=== PATIENT | female | born 1970 | race African-American/Black ===

== ENCOUNTER 2021-08-22 05:02 | Inpatient (IN) | payer OTHER, SELFPAY ==
[2021-08-22] VITALS (10 sets, daily range): BP systolic 87–144; BP diastolic 54–72; PULSE 72–107; RESP 10–20; TEMP 36.6–36.9; O2SAT 90–99; BMI 27.4
--- NOTE | 2021-08-22 | ECG_ITS ---
Test Reason : QTC CHECK Blood Pressure : / mmHG Vent. Rate : 091 BPM Atrial Rate : 091 BPM P-R Int : 144 ms QRS Dur : 076 ms QT Int : 368 ms P-R-T Axes : 073 050 029 degrees QTc Int : 452 ms Normal sinus rhythm T wave abnormality, consider anterior ischemia Abnormal ECG When compared with ECG of 22-AUG-2021 05:12, Nonspecific T wave abnormality, worse in Inferior leads T wave inversion now evident in Anterior leads Referred By: Houston Markham Electronically Signed By:LYNDA FIGUEROA MD
--- NOTE | ~2021-08-22 | XR_ITS ---
EXAMINATION: XR CHEST CLINICAL INFORMATION: Shortness of breath COMPARISON: None TECHNIQUE: Frontal view of the chest was obtained. FINDINGS: The lungs are well expanded. There is no focal consolidation, edema, or effusion. Bronchial wall thickening noted. No pneumothorax. The cardiomediastinal silhouette is within normal limits. No acute osseous abnormality. XR/XR chest 1V IMPRESSION: No dense consolidation. Bronchial wall thickening can be seen with a small airways process such as asthma or atypical/viral infection.
--- NOTE | 2021-08-22 05:08 | ECG_ITS ---
Test Reason : SOB Blood Pressure : / mmHG Vent. Rate : 084 BPM Atrial Rate : 084 BPM P-R Int : 140 ms QRS Dur : 072 ms QT Int : 362 ms P-R-T Axes : 080 060 045 degrees QTc Int : 427 ms Normal sinus rhythm Right atrial enlargement Borderline ECG When compared with ECG of 09-MAR-2005 08:33, Nonspecific T wave abnormality now evident in Anterior leads Referred By: Elva Guerrero Electronically Signed By:LYNDA FIGUEROA MD
[2021-08-22] MEDS: Albuterol Sulfate (0.083%) 2.5 MG/3 ML VIAL.NEB 10 MG INHALE ×2 (05:14→06:08)
--- NOTE | 2021-08-22 05:16 | ED.SOB ---
HPI - SOB/Dyspnea General Chief Complaint: Dyspnea Stated Complaint: SoB, COPD Time Seen by Provider: 08/22/21 05:07 Source: patient Mode of arrival: ambulatory History of Present Illness HPI Narrative: 50-year-old female known COPD, every day smoker, who presents with difficulty breathing has progressively worsened over 2 days and reports severe right-sided lower back pain that she states feels similar to the pain she experienced 30 years ago in her right lung collapsed. Room-air sat 75% but responded well to application of nasal cannula. Patient denies any fever, chills, nausea, vomiting, chest pain/palpitations and denies any diarrhea or urinary symptoms. Related Data Allergies Allergy/AdvReac Type Severity Reaction Status Date / Time No Known Allergies Allergy Unverified 01/20/20 16:21 Review of Systems Review of Systems: Pertinent positives and negatives as stated in HPI 10 point review of systems is otherwise negative. PMFSH Past Medical History Source: nursing notes reviewed Social History Social History Alcohol intake: former Patient Tobacco Use Status: Current everyday Tobacco user Use of substances other than those prescribed or required for medical reasons: No Advance Directives: No Physical Exam Vital Signs: Vital Signs: Last Vital Signs Pulse 95 08/22/21 06:10 Resp 20 08/22/21 06:10 BP 144/72 H 08/22/21 05:39 Pulse Ox 99 08/22/21 05:39 BMI result Body Mass Index 27.4 VITAL SIGNS: Reviewed. GENERAL: Well developed, well nourished, in no acute distress. HEAD: Normocephalic/atraumatic EYES: PERRLA, EOMI EARS: Ext canals without abnormality OROPHARYNX: no oral lesions noted, posterior pharynx clear LUNGS: Minimal air movement noted bilaterally, tachypnea present, retractions present, able to speak in full sentences SpO2<99> on oxygen CARDIOVASCULAR: Regular rate and rhythm without noted murmurs, no JVD or lower extremity edema. ABDOMEN: Soft, non-tender, non-distended with bowel sounds. MUSCULOSKELETAL: No tenderness, deformities, or effusions noted on gross inspection. EXTREMITIES: No cyanosis, clubbing or edema. SKIN: Inspection of the skin reveals no rashes NEUROLOGIC: Alert and oriented x 4. Strength and sensation to light touch were grossly intact x 4. Course Course Course Narrative: 0500: 50-year-old female with history and clinical presentation consistent with COPD exacerbation, nebulized treatments/steroids/antibiotics as well as supplemental oxygen provided. All investigations reviewed and consistent with COPD exacerbation. MDM - SOB/Dyspnea Lab Data Result diagrams: 08/22/21 05:18 08/22/21 05:18 Labs: Lab Results 08/22/21 08/22/21 08/22/21 Range/Units 05:18 05:18 05:18 WBC 9.2 (4.8-10.8) X10*3/uL RBC 5.49 (4.20-5.50) X10*6/uL Hgb 16.5 H (12.0-16.0) g/dl Hct 50.8 H (37.0-47.0) % MCV 92.5 (80.0-98.0) fL MCH 30.1 (27.0-33.0) pg MCHC 32.5 (31.0-35.0) g/dl RDW 13.0 (11.0-16.0) % Plt Count 162 (160-400) X10*3/uL MPV 9.7 (9.4-12.3) fL Immature Gran % (Auto) 0.3 (0.0-0.4) % Neut % (Auto) 59.5 (45-73) % Lymph % (Auto) 29.0 (20-40) % [place] % (Auto) 8.3 (2-11) % Eos % (Auto) 2.7 (0-4) % Baso % (Auto) 0.2 (0-2) % Lymph # (Auto) 2.7 (1.2-4.9) X10*3/uL [place] # (Auto) 0.8 (0.1-1.2) X10*3/uL Eos # (Auto) 0.3 (0.0-0.4) X10*3/uL Baso # (Auto) 0.0 (0.0-0.2) X10*3/uL Abs Immat Gran (auto) 0.03 (0.00-0.03) X10*3/uL Absolute Neuts (auto) 5.4 (2.0-8.3) x10*3/uL Absolute Nucleated RBC 0.000 (0.0-0.012) X10*3/uL Nucleated RBC % (auto) 0.0 (0.0-0.2) /100WBC VBG pH (7.32-7.43) VBG pCO2 mmHg VBG pO2 mmHg VBG HCO3 (22-26) mmol/L VBG O2 Saturation % VBG Base Excess mmol/L Sodium 137 (135-145) mmol/L Potassium 4.8 (3.3-5.1) mmol/L Chloride 96 (96-108) mmol/L Carbon Dioxide 29 (22-29) mmol/L Anion Gap 17 (12-20) BUN 13 (9-16) mg/dL Creatinine 0.78 (0.5-1.4) mg/dL Estim Creat Clear Calc 67.3 Estimated GFR > 60 Random Glucose 92 (60-115) mg/dL Lactic Acid (0.5-2.0) mmol/L Calcium 9.5 (8.4-10.2) mg/dL Total Bilirubin 0.6 (0.0-1.0) mg/dL AST 25 (5-31) U/L ALT 15 (0-31) U/L Alkaline Phosphatase 66 (39-117) U/L Troponin I High Sens (<3.5-17.0) ng/L B-Natriuretic Peptide (<100) pg/mL Total Protein 8.3 H (6.5-8.0) g/dL Albumin 4.2 (3.5-5.0) g/dL COVID-19 (TESHA) (Negative) COVID-19 Clin Com Influenza Type A (TRANG) Negative (Negative) Influenza Type B (TRANG) Negative (Negative) Influenza A & B Note See Note 08/22/21 08/22/21 08/22/21 Range/Units 05:18 05:18 05:35 WBC (4.8-10.8) X10*3/uL RBC (4.20-5.50) X10*6/uL Hgb (12.0-16.0) g/dl Hct (37.0-47.0) % MCV (80.0-98.0) fL MCH (27.0-33.0) pg MCHC (31.0-35.0) g/dl RDW (11.0-16.0) % Plt Count (160-400) X10*3/uL MPV (9.4-12.3) fL Immature Gran % (Auto) (0.0-0.4) % Neut % (Auto) (45-73) % Lymph % (Auto) (20-40) % [place] % (Auto) (2-11) % Eos % (Auto) (0-4) % Baso % (Auto) (0-2) % Lymph # (Auto) (1.2-4.9) X10*3/uL [place] # (Auto) (0.1-1.2) X10*3/uL Eos # (Auto) (0.0-0.4) X10*3/uL Baso # (Auto) (0.0-0.2) X10*3/uL Abs Immat Gran (auto) (0.00-0.03) X10*3/uL Absolute Neuts (auto) (2.0-8.3) x10*3/uL Absolute Nucleated RBC (0.0-0.012) X10*3/uL Nucleated RBC % (auto) (0.0-0.2) /100WBC VBG pH (7.32-7.43) VBG pCO2 mmHg VBG pO2 mmHg VBG HCO3 (22-26) mmol/L VBG O2 Saturation % VBG Base Excess mmol/L Sodium (135-145) mmol/L Potassium (3.3-5.1) mmol/L Chloride (96-108) mmol/L Carbon Dioxide (22-29) mmol/L Anion Gap (12-20) BUN (9-16) mg/dL Creatinine (0.5-1.4) mg/dL Estim Creat Clear Calc Estimated GFR Random Glucose (60-115) mg/dL Lactic Acid 1.0 (0.5-2.0) mmol/L Calcium (8.4-10.2) mg/dL Total Bilirubin (0.0-1.0) mg/dL AST (5-31) U/L ALT (0-31) U/L Alkaline Phosphatase (39-117) U/L Troponin I High Sens < 3.5 (<3.5-17.0) ng/L B-Natriuretic Peptide 16 (<100) pg/mL Total Protein (6.5-8.0) g/dL Albumin (3.5-5.0) g/dL COVID-19 (TESHA) Negative (Negative) COVID-19 Clin Com See Note Influenza Type A (TRANG) (Negative) Influenza Type B (TRANG) (Negative) Influenza A & B Note 08/22/21 Range/Units 05:38 WBC (4.8-10.8) X10*3/uL RBC (4.20-5.50) X10*6/uL Hgb (12.0-16.0) g/dl Hct (37.0-47.0) % MCV (80.0-98.0) fL MCH (27.0-33.0) pg MCHC (31.0-35.0) g/dl RDW (11.0-16.0) % Plt Count (160-400) X10*3/uL MPV (9.4-12.3) fL Immature Gran % (Auto) (0.0-0.4) % Neut % (Auto) (45-73) % Lymph % (Auto) (20-40) % [place] % (Auto) (2-11) % Eos % (Auto) (0-4) % Baso % (Auto) (0-2) % Lymph # (Auto) (1.2-4.9) X10*3/uL [place] # (Auto) (0.1-1.2) X10*3/uL Eos # (Auto) (0.0-0.4) X10*3/uL Baso # (Auto) (0.0-0.2) X10*3/uL Abs Immat Gran (auto) (0.00-0.03) X10*3/uL Absolute Neuts (auto) (2.0-8.3) x10*3/uL Absolute Nucleated RBC (0.0-0.012) X10*3/uL Nucleated RBC % (auto) (0.0-0.2) /100WBC VBG pH 7.43 (7.32-7.43) VBG pCO2 51 mmHg VBG pO2 37 mmHg VBG HCO3 34 H (22-26) mmol/L VBG O2 Saturation 66.0 % VBG Base Excess 8.6 mmol/L Sodium (135-145) mmol/L Potassium (3.3-5.1) mmol/L Chloride (96-108) mmol/L Carbon Dioxide (22-29) mmol/L Anion Gap (12-20) BUN (9-16) mg/dL Creatinine (0.5-1.4) mg/dL Estim Creat Clear Calc Estimated GFR Random Glucose (60-115) mg/dL Lactic Acid (0.5-2.0) mmol/L Calcium (8.4-10.2) mg/dL Total Bilirubin (0.0-1.0) mg/dL AST (5-31) U/L ALT (0-31) U/L Alkaline Phosphatase (39-117) U/L Troponin I High Sens (<3.5-17.0) ng/L B-Natriuretic Peptide (<100) pg/mL Total Protein (6.5-8.0) g/dL Albumin (3.5-5.0) g/dL COVID-19 (TESHA) (Negative) COVID-19 Clin Com Influenza Type A (TRANG) (Negative) Influenza Type B (TRANG) (Negative) Influenza A & B Note ECG Data Attestation: I personally reviewed and interpreted this ECG as follows: Prior ECG tracings: available for review Interpretation: Normal sinus rhythm, HR-84, no STEMI, ND/QRS/QTC is within normal limits. Discharge Plan Discharge Clinical Impression: COPD exacerbation Patient Disposition: Admitted As Inpatient
[2021-08-22 05:22] LABS: Basophils Percent Auto 0.2 % (0-2); Eosinophils Absolute Auto 0.3 X10*3/uL (0.0-0.4); Eosinophils Percent Auto 2.7 % (0-4); Hematocrit 50.8 % (37.0-47.0); Hemoglobin 16.5 g/dl (12.0-16.0); Imm Gran Abs Auto 0.03 X10*3/uL (0.00-0.03); Imm Gran Pct Auto 0.3 % (0.0-0.4); Lymphocytes Absolute Auto 2.7 X10*3/uL (1.2-4.9); MANUAL DIFF FLAG NO; Mean Corpuscular HGB Conc 32.5 g/dl (31.0-35.0); Mean Corpuscular Hemoglobin 30.1 pg (27.0-33.0); Mean Corpuscular Volume 92.5 fL (80.0-98.0); Mean Platelet Volume 9.7 fL (9.4-12.3); Monocytes Absolute Auto 0.8 X10*3/uL (0.1-1.2); Monocytes Percent Auto 8.3 % (2-11); Neutrophils Absolute Auto 5.4 x10*3/uL (2.0-8.3); Neutrophils Percent Auto 59.5 % (45-73); Platelet Count 162 X10*3/uL (160-400); Red Blood Count 5.49 X10*6/uL (4.20-5.50); White Blood Count 9.2 X10*3/uL (4.8-10.8)
[2021-08-22] MEDS: methylPREDNISolone Sod Succ 125 MG/2 ML VIAL IVPUSH (05:33)
[2021-08-22 05:42] LABS: COVID-19 Test Negative (Negative); IDNOW Serial# 16C4AD1C
[2021-08-22 05:43] LABS: Influenza A Negative (Negative); Influenza B2 Negative (Negative)
[2021-08-22 05:44] LABS: VBG Base Excess 8.6 mmol/L; VBG HCO3 34 mmol/L (22-26); VBG pCO2 51 mmHg; VBG pH 7.43 (7.32-7.43); VBG pO2 37 mmHg
[2021-08-22 05:44] LABS: Alanine Aminotransferase 15 U/L (0-31); Albumin Level 4.2 g/dL (3.5-5.0); Alkaline Phosphatase 66 U/L (39-117); Anion Gap 17 (12-20); Aspartate Amino Transferase 25 U/L (5-31); Bilirubin Total 0.6 mg/dL (0.0-1.0); Blood Urea Nitrogen 13 mg/dL (9-16); Calcium 9.5 mg/dL (8.4-10.2); Carbon Dioxide 29 mmol/L (22-29); Chloride 96 mmol/L (96-108); Creatinine Clr Calc Pharmacy 67.3; Estimated Glomerular Filt Rate > 60; Glucose Random 92 mg/dL (60-115); Potassium 4.8 mmol/L (3.3-5.1); Sodium 137 mmol/L (135-145); Total Protein 8.3 g/dL (6.5-8.0)
[2021-08-22 05:45] LABS: Venous Blood Gas Refer to POC result
[2021-08-22 06:13] LABS: B Type Natriuretic Peptide 16 pg/mL (<100); Troponin-I High Sensitivity < 3.5 ng/L (<3.5-17.0)
[2021-08-22] MEDS: levoFLOXacin/D5W 750 MG/150 ML PIGGYBACK 100 MG IV (06:13)
--- NOTE | 2021-08-22 06:26 | PC.NURSE ---
I assumed nursing care of Yessica upon her arrival to bed 4. She presented with c/o difficulty rbeathing and R sided back pain that feels similar to the pain she felt when she had collapsed R lung approximately 30 years ago. On arrival pt admits to being a recovering IVDA. She was direct to bed 4 with RT and MD and RN's at bedside, room air sat's initially 74% - up to 90% with 6L O2 vi nasal cannula as well as DuoNeb. Initial lung sounds auscultated by Emmett ARBOLEDA revealed very little to no air movement. Sinus tach, rate 104 on bedside monitor. No cyanosis, although pt did appear pale on arrival. No nausea. No vomiting. No chest pain. She denies any change in her bowel or bladder patterns. IV access/labs obtained. IV Abx infusing. Pt is aware that she is TBADM.
[2021-08-22] MEDS: Albuterol/Iprat 2.5/0.5MG 3 ML AMPUL.NEB INHALE ×2 (06:28→11:08)
--- NOTE | 2021-08-22 08:04 | PHA.MEDREC ---
Pharmacy Consult ? Medication Reconciliation Pharmacy has completed the medication reconciliation. Patient stated she gets take home bottles of methadone from [place] and took one this morning (08/22) on the way to the ER.
--- NOTE | 2021-08-22 09:04 | PM.IMHP ---
History of Present Illness Date of Service: 08/22/21 Chief Complaint: shortness of breath, generalized malaise This is a 50 yo F with a PMH of COPD, Tobacco use -- actively smoking, prior IVDU now on methadone (sobriety > 6 years now), prior pneumococcal pneumonia / collapsed lung / tracheotomy who presents to the hospital with a several day history of a non-productive cough, progressive shortness of breath and severe fatigue. The patient reports that her symptoms began with generalized malaise with subsequently cough and pleuritic back pain. She began feeling short of breath with exertion and eventually even at rest. She reports she went into work on the night prior to admission and could not complete her shift due to severe fatigue and shortness of breath. She attempted, over the last several days, to use her PRN albuterol inhaler without any improvement. Upon arrival to the ED, she was found to be tachypenic in the high 20s/low 30s, tachycardic in the 120s and hypoxic down to 74% on RA which improved to 89-90% on 6L. She was given IV steroids, bronchodilators and IV antibiotics. Her symptoms improved but she remains hypoxic requiring 3L to keep O2 saturations >90. COVID vaccination status -- 3 doses of mRNA booster Review of Systems Review of Systems: negative except HPI [facility] Medical History (Updated 08/22/21 @ 09:12 by Houston Markham MD) COPD (chronic obstructive pulmonary disease) Lung collapse Pertinent family history: Denies any family history Surgical History (Updated 08/22/21 @ 09:12 by Houston Markham MD) H/O: History of tracheostomy Social History (Updated 08/22/21 @ 09:12 by Houston Markham MD) Alcohol intake: current Alcohol intake frequency: holidays/special occasions only Patient Tobacco Use Status: Current everyday Tobacco user Use of substances other than those prescribed or required for medical reasons: No Advance Directives: No Meds Allergies Allergy/AdvReac Type Severity Reaction Status Date / Time No Known Allergies Allergy Unverified 01/20/20 16:21 Active Medications: Current Medications Acetaminophen (Acetaminophen 325 Mg Tablet) 650 mg PO Q6H PRN PRN Reason: Pain, Mild (Pain Scale 1-3) Albuterol Sulfate (Albuterol Sulfate (0.083%) 2.5 Mg/3 Ml Vial.Neb) 2.5 mg INHALE Q3H PRN PRN Reason: Wheezing Albuterol/Ipratropium (Albuterol/Iprat 2.5/0.5mg 3 Ml Ampul.Neb) 3 ml INHALE RQ4H WHILE AWAKE [facility] Doxycycline Hyclate (Doxycycline Hyclate 100 Mg Tablet) 100 mg PO Q12H [facility] Enoxaparin Sodium (Enoxaparin Sodium 40 Mg/0.4 Ml Syringe) 40 mg SUBCUT Q24H [facility] Methadone HCl (Methadone Hcl 20 Mg/2 Ml Oral.Conc) 75 mg PO DAILY [facility] Methylprednisolone Sodium Succinate (Methylprednisolone Sod Succ 40 Mg/Ml Vial) 40 mg IVPUSH Q8H [facility] Ondansetron HCl (Ondansetron Hcl 4 Mg/2 Ml Vial) 4 mg IVPUSH Q8H PRN PRN Reason: Nausea and Vomiting Pharmacy Consult (Consult Rx Perform Med Rec) 1 each MISCELLANE ONCE PRN PRN Reason: Consult order Sodium Chloride (0.9 % Sodium Chloride Flush 3 Ml Syringe) 3 ml IVFLUSH QSHIFT [facility] Tiotropium [place] (Tiotropium [place] 18 Mcg Cap.W.Dev) puff INHALE DAILY [facility] Home Medications Medication Instructions Recorded Confirmed Last Taken Type albuterol sulfate 90 mcg/actuation 2 puff INHALATION QID PRN 08/22/21 08/22/21 Unknown History aerosol inhaler (Ventolin HFA) cholecalciferol (vitamin D3) 25 1 tab PO DAILY 08/22/21 08/22/21 08/21/21 History mcg (1,000 unit) tablet (Vitamin D3) methadone 10 mg/mL oral concentrate 75 mg PO DAILY 08/22/21 08/22/21 08/22/21 History multivitamin 1 tab PO DAILY 08/22/21 08/22/21 08/21/21 History tiotropium bromide 18 mcg capsule 1 cap INHALATION DAILY 08/22/21 08/22/21 08/21/21 History with inhalation device (Spiriva with HandiHaler) Physical Exam Vital Signs and Narrative: Vital Signs: Last Vital Signs Temp 98.0 F 08/22/21 08:25 Pulse 101 H 08/22/21 08:25 Resp 10 L 08/22/21 08:25 BP 87/63 L 08/22/21 08:25 Pulse Ox 91 L 08/22/21 08:25 BMI result Body Mass Index 27.4 Const: Other: Constitutional - Awake and Alert, appears fatigued Eyes - PERRLA, EOMI Cardiovascular - S1S2, rates in the 110s Respiratory - diminished air entry globally; saturation 90% on 3L NC Gastrointestinal - NT / ND; +BS; No rebound or guarding - No CVA tenderness Extremities - no calf tenderness bilaterally, no swelling Musculoskeletal - Normal inspection, normal ROM Skin - Warm/Dry Neurological - Alert & oriented x3, No focal deficit Psychological - Appropriate affect Results Labs CBC and Chem 7: 08/22/21 05:18 08/22/21 05:18 Labs: Laboratory Results - last 24 hr 08/22/21 08/22/21 08/22/21 05:18 05:18 05:18 MCV 92.5 MCH 30.1 MCHC 32.5 RDW 13.0 Plt Count 162 MPV 9.7 Immature Gran % (Auto) 0.3 Neut % (Auto) 59.5 Lymph % (Auto) 29.0 [place] % (Auto) 8.3 Eos % (Auto) 2.7 Baso % (Auto) 0.2 Lymph # (Auto) 2.7 [place] # (Auto) 0.8 Eos # (Auto) 0.3 Baso # (Auto) 0.0 Abs Immat Gran (auto) 0.03 Absolute Neuts (auto) 5.4 Absolute Nucleated RBC 0.000 Nucleated RBC % (auto) 0.0 VBG pH VBG pCO2 VBG pO2 VBG HCO3 VBG O2 Saturation VBG Base Excess Anion Gap 17 Estim Creat Clear Calc 67.3 Estimated GFR > 60 Random Glucose 92 Lactic Acid Calcium 9.5 Total Bilirubin 0.6 AST 25 ALT 15 Alkaline Phosphatase 66 Troponin I High Sens B-Natriuretic Peptide Total Protein 8.3 H Albumin 4.2 COVID-19 (TESHA) COVID-19 Clin Com Influenza Type A (TRANG) Negative Influenza Type B (TRANG) Negative Influenza A & B Note See Note 08/22/21 08/22/21 08/22/21 05:18 05:18 05:35 MCV MCH MCHC RDW Plt Count MPV Immature Gran % (Auto) Neut % (Auto) Lymph % (Auto) [place] % (Auto) Eos % (Auto) Baso % (Auto) Lymph # (Auto) [place] # (Auto) Eos # (Auto) Baso # (Auto) Abs Immat Gran (auto) Absolute Neuts (auto) Absolute Nucleated RBC Nucleated RBC % (auto) VBG pH VBG pCO2 VBG pO2 VBG HCO3 VBG O2 Saturation VBG Base Excess Anion Gap Estim Creat Clear Calc Estimated GFR Random Glucose Lactic Acid 1.0 Calcium Total Bilirubin AST ALT Alkaline Phosphatase Troponin I High Sens < 3.5 B-Natriuretic Peptide 16 Total Protein Albumin COVID-19 (TESHA) Negative COVID-19 Clin Com See Note Influenza Type A (TRANG) Influenza Type B (TRANG) Influenza A & B Note 08/22/21 05:38 MCV MCH MCHC RDW Plt Count MPV Immature Gran % (Auto) Neut % (Auto) Lymph % (Auto) [place] % (Auto) Eos % (Auto) Baso % (Auto) Lymph # (Auto) [place] # (Auto) Eos # (Auto) Baso # (Auto) Abs Immat Gran (auto) Absolute Neuts (auto) Absolute Nucleated RBC Nucleated RBC % (auto) VBG pH 7.43 VBG pCO2 51 VBG pO2 37 VBG HCO3 34 H VBG O2 Saturation 66.0 VBG Base Excess 8.6 Anion Gap Estim Creat Clear Calc Estimated GFR Random Glucose Lactic Acid Calcium Total Bilirubin AST ALT Alkaline Phosphatase Troponin I High Sens B-Natriuretic Peptide Total Protein Albumin COVID-19 (TESHA) COVID-19 Clin Com Influenza Type A (TRANG) Influenza Type B (TRANG) Influenza A & B Note Imaging Radiologist's Impressions: Impressions Chest X-Ray 08/22/21 05:50 IMPRESSION: No dense consolidation. Bronchial wall thickening can be seen with a small airways process such as asthma or atypical/viral infection. Assessment and Plan (1) Acute respiratory failure: Status: Acute (2) COPD exacerbation: Status: Acute Plan This is a 50 yo F with a PMH of COPD, Tobacco use -- actively smoking, prior IVDU now on methadone (sobriety > 6 years now), prior pneumococcal pneumonia / collapsed lung / tracheotomy who presents to the hospital with a several day history of a non-productive cough, progressive shortness of breath and severe fatigue. Her presentation is consistent with a COPD exacerbation likely secondary to continued smoking + bronchitis. 1. Acute Respiratory Failure with hypoxia presented with saturations in mid 70s, tachypnea and accessory muscle use currently 90% on 3L NC -- continue with a saturation goal of 90-92; do not over oxygenate Due to COPD exacerbation 2. Acute COPD exacerbation 2a. Suspected bacterial bronchitis Continue scheduled + PRN nebulized bronchodilators empiric doxycycline Patient does not have severe sepsis; her low BP reading (87/63) is an error has multiple readings shortly after this (and without intervention) are in the normal range 3. Chronic opiate dependence on methadone maintenance therapy -- reports she has taken her dose of the day prior IVDU -- now sober > 6 years continue methadone; avoid qt prolonging drugs; will check EKG now Full Code DVT pptx, Lovenox In light of the patient's acute respiratory failure requiring supplemental oxygen + COPD exacerbation -- I anticipate a medically necessary inpatient hospitalization which is likely to span at least 2 midnights for treatment and monitoring of response to the previously mentioned conditions. This cannot be completed in a less acute setting. Quality Stroke Does the patient have a stroke diagnosis?: No VTE Prior VTE?: No VTE Risk Level:: Medical - moderate - high VTE Device Contraindication: Treatment Not Indicated VTE Drug Contraindication: N/A - Med Ordered
[2021-08-22] MEDS: Lactated Ringers 1,000 ML 100 ML IVCONT ×2 (10:00→19:16)
[2021-08-22] MEDS: Enoxaparin Sodium 40 MG/0.4 ML SYRINGE SUBCUT (10:00)
[2021-08-22 10:02] LABS: D Dimer High Sensitivity < 150 NG/ML
[2021-08-22] MEDS: oxyCODONE HCl Immed Release 5 MG TABLET PO ×2 (12:23→18:46)
[2021-08-22] MEDS: methylPREDNISolone Sod Succ 40 MG/ML VIAL IVPUSH ×2 (12:23→19:14)
[2021-08-22 13:00] LABS: Troponin-I High Sensitivity < 3.5 ng/L (<3.5-17.0)
[2021-08-22] MEDS: ondansetron HCL 4 MG/2 ML VIAL IVPUSH (22:52)
[2021-08-23] VITALS (9 sets, daily range): BP systolic 114–133; BP diastolic 65–79; PULSE 69–90; RESP 17–20; TEMP 35.6–36.4; O2SAT 90–98
[2021-08-23] MEDS: methylPREDNISolone Sod Succ 40 MG/ML VIAL IVPUSH ×3 (03:37→19:42)
[2021-08-23] MEDS: Albuterol/Iprat 2.5/0.5MG 3 ML AMPUL.NEB INHALE ×3 (07:34→15:26)
[2021-08-23] MEDS: Enoxaparin Sodium 40 MG/0.4 ML SYRINGE SUBCUT (08:05)
[2021-08-23] MEDS: methADONE HCl 20 MG/2 ML ORAL.CONC 75 MG PO (08:06)
[2021-08-23] MEDS: oxyCODONE HCl Immed Release 5 MG TABLET PO ×2 (08:08→15:55)
[2021-08-23] MEDS: 0.9 % Sodium Chloride Flush 3 ML SYRINGE IVFLUSH ×3 (08:11→19:42)
--- NOTE | 2021-08-23 09:08 | P.PNIM_ITS ---
Subjective Subjective Date of Service: 08/23/21 Interval History: seen and examined this AM feeling better, no chest pain still sob with exertion requesting nicotine patch Review of Systems negative except interval history Physical Exam Vital Signs: Vital Signs: Last Vital Signs Temp 97.6 F 08/23/21 07:29 Pulse 69 08/23/21 07:34 Resp 18 08/23/21 07:34 BP 127/79 08/23/21 07:29 Pulse Ox 90 L 08/23/21 07:29 BMI result Body Mass Index 27.4 Const: Other: General - no acute distress, appears comfortable Cardiovascular - regular rate and rhythm, S1-S2 Lungs - diminished breath sounds globally Abdomen - soft, nontender, no rebound or guarding Extremities - no edema bilaterally Neuro - awake and alert, no focal deficits Objective Data Active Medications Acetaminophen (Acetaminophen 325 Mg Tablet) 650 mg PO Q6H PRN PRN Reason: Pain, Mild (Pain Scale 1-3) Albuterol Sulfate (Albuterol Sulfate (0.083%) 2.5 Mg/3 Ml Vial.Neb) 2.5 mg INHALE Q3H PRN PRN Reason: Wheezing Albuterol/Ipratropium (Albuterol/Iprat 2.5/0.5mg 3 Ml Ampul.Neb) 3 ml INHALE RQ4H WHILE AWAKE [facility] Last Admin: 08/23/21 07:34 Dose: 3 ml Documented by: MALCOM Doxycycline Hyclate (Doxycycline Hyclate 100 Mg Tablet) 100 mg PO Q12H [facility] Last Admin: 08/23/21 08:05 Dose: 100 mg Documented by: MARCIE Enoxaparin Sodium (Enoxaparin Sodium 40 Mg/0.4 Ml Syringe) 40 mg SUBCUT Q24H [facility] Last Admin: 08/23/21 08:05 Dose: 40 mg Documented by: MARCIE Methadone HCl (Methadone Hcl 20 Mg/2 Ml Oral.Conc) 75 mg PO DAILY [facility] Last Admin: 08/23/21 08:06 Dose: 75 mg Documented by: MARCIE Methylprednisolone Sodium Succinate (Methylprednisolone Sod Succ 40 Mg/Ml Vial) 40 mg IVPUSH Q8H [facility] Last Admin: 08/23/21 03:37 Dose: 40 mg Documented by: CHERYL Nicotine (Nicotine 14 Mg Patch.Td24) 14 mg TRANSDERMA DAILY [facility] Ondansetron HCl (Ondansetron Hcl 4 Mg/2 Ml Vial) 4 mg IVPUSH Q8H PRN PRN Reason: Nausea and Vomiting Last Admin: 08/22/21 22:52 Dose: 4 mg Documented by: ODRISM Oxycodone HCl (Oxycodone Hcl Immed Release 5 Mg Tablet) 5 mg PO Q6H PRN PRN Reason: Pain, Severe (Pain Scale 7-10) Last Admin: 08/23/21 08:08 Dose: 5 mg Documented by: MARCIE Pharmacy Consult (Consult Rx Perform Med Rec) 1 each MISCELLANE ONCE PRN PRN Reason: Consult order Sodium Chloride (0.9 % Sodium Chloride Flush 3 Ml Syringe) 3 ml IVFLUSH QSHIFT [facility] Last Admin: 08/23/21 08:11 Dose: 3 ml Documented by: MARCIE Tiotropium [place] (Tiotropium [place] 18 Mcg Cap.W.Dev) 1 puff INHALE RDAILY [facility] Last Admin: 08/23/21 07:34 Dose: 1 puff Documented by: MALCOM Labs CBC & Chem 7: 08/22/21 05:18 08/22/21 05:18 Labs: Laboratory Results - last 24 hr 08/22/21 08/22/21 09:39 12:19 D-Dimer High Sensitivty < 150 Troponin I High Sens < 3.5 Microbiology Microbiology Results: Microbiology 08/22/21 05:40 Blood Culture - Preliminary Blood - Venous No growth after 24 hours. 08/22/21 05:40 Blood Culture - Preliminary Blood - Venous No growth after 24 hours. Assessment and Plan (1) Acute respiratory failure: Status: Acute (2) COPD exacerbation: Status: Acute Plan This is a 50 yo F with a PMH of COPD, Tobacco use -- actively smoking, prior IVDU now on methadone (sobriety > 6 years now), prior pneumococcal pneumonia / collapsed lung / tracheotomy who presents to the hospital with a several day history of a non-productive cough, progressive shortness of breath and severe fa tigue.? Her presentation is consistent with a COPD exacerbation likely secondary to continued smoking + bronchitis. 1. Acute Respiratory Failure with hypoxia still requiring 1.5L to maintain saturation > 90% continue to wean o2 as tolerated 2. Acute COPD exacerbation 2a. Suspected bacterial bronchitis Continue DuoNebs scheduled + IV solu-medrol continue Doxy 3. Chronic opiate dependence continue methadone 4. T-wave inversions no prior EKGs to compare HS trop-I negative x 2 Echo today and if abnormal -- inpatient cardiology consult; otherwise outpatient referral Full Code DVT pptx, Lovenox Reason for continued hospitalization: Persistent hypoxia secondary to COPD exacerbation + work up for EKG changes Quality Stroke Does the patient have a stroke diagnosis?: No VTE Prior VTE?: No VTE Risk Level:: Medical - moderate - high VTE Device Contraindication: Treatment Not Indicated VTE Drug Contraindication: N/A - Med Ordered
[2021-08-23] MEDS: Nicotine 14 MG PATCH.TD24 TRANSDERMA (09:56)
--- NOTE | 2021-08-23 10:04 | MHC.CM.PN ---
CM ATTEMPTED TO SEE PT HOWEVER BEDSIDE ECHO WAS IN PROCESS CM TO REVISIT
--- NOTE | 2021-08-23 13:00 | CA_ITS ---
Transthoracic Echocardiogram Patient (Last, First, Middle): Yessica Natarajan, Gender: Female Date of : 1970 Age: 50 Procedure Date: 08/23/2021 Procedure Type: Transthoracic Echocardiogram Location: S3E Height: 149.86 cm Weight: 61.69 kg BSA: 1.57 m2 Heart Rate: bpm BP: 110 / 62 mmHg Upholstery Covers Inspector: ROBERT Referring MD: Houston Markham MD Streetcar Dispatcher: Mars Lieberman MD Symptoms: EKG with t-wave inversion, chest pain Study Quality: Fair ECG Rhythm: Sinus Conclusions: - Essentially normal study Findings Left Ventricle Normal left ventricular size, thickness, and systolic function. The visually estimated ejection fraction is between 65-70%. Spectral Doppler is indicative of a normal filling pattern. Right Ventricle Normal right ventricular cavity size and systolic function. Atria Both atria are normal in size. There is lipomatous hypertrophy of the interatrial septum. There is no evidence of interatrial shunt. Aortic Valve Normal aortic valve structure and function. There is no aortic valve stenosis. There is no aortic valve regurgitation. Mitral Valve Likely normal mitral valve structure and function. There is trace mitral valve regurgitation. There is no mitral valve stenosis. Pulmonic Valve The pulmonic valve was not well visualized. Tricuspid Valve Normal tricuspid valve structure. There is trace tricuspid valve regurgitation. The right ventricular systolic pressure is normal. The right ventricular systolic pressure is 7 mmHg. Normal right atrial pressure. There is no evidence of pulmonary hypertension. Great Vessels All visible segments of the aorta are normal in size. The pulmonary artery was not well visualized. Venous The inferior vena cava is normal in size and collapses greater than 50% with inspiration. Pericardium/Pleural There is no evidence of pericardial effusion. Prior Study Comparison No prior study available for comparison. Measurements 2D Linear Measurements IVSd: 1.00 0.6-0.9/0.6-1.0 cm LVIDd: 3.34 3.9-5.3/4.2-5.9 cm LVIDd Index: 2.13 2.4-3.2/2.2-3.1 cm/m2 LVIDs: 2.09 2.0-3.6 cm LVPWd: 0.95 0.7-1.1 cm LA Diam: 2.40 2.7-3.8/3.0-4.0 cm LAIDs Index: 1.53 1.5-2.3 cm/m2 LV Mass: 115.56 67-162/88-224 g LV Mass Index: 73.60 43-95/49-115 g/m2 LVOT Diam: 1.90 3.0+(-)1.3 cm 2D Systolic Function EF 4C: 71.20 >55% EF 2C: 68.00 >55% EF BiP: 69.80 >55% Mitral Valve MV Pk E: 0.90 MV PK A: 0.78 MV Decel Time: 216.00 E/A: 1.20 E'Lateral: 12.20 E'Medial: 8.16 E/E' Med: 11.00 E/E' Lat: 7.40 PHT: 63.00 MVA PHT: 3.49 Decel [place]: 4.16 Aortic Valve AoV Pk Emigdio: 1.49 AoV Mn Emigdio: 1.01 AoV VTI: 0.30 AoV Pk Grad: 9.00 Aov Mn Grad: 5.00 WESLY Cont.VTI: 2.32 LVOT LVOT Pk Emigdio: 1.21 LVOT Mn Emigdio: 0.81 LVOT VTI: 0.25 LVOT Pk Grad: 6.00 LVOT Mn Grad: 3.00 LVOT Diam: 1.90 LVOT Area: 2.84 Diastolic Function MV Pk E: 0.90 MV Pk A: 0.78 E/A: 1.20 E'Medial: 8.16 E/E' Med: 11.00 E' Laterial: 12.20 E/E' Lat: 7.40 Right Ventricle TAPSE (mm): 20.80 TVS' Emigdio: 13.50 Tricuspid Valve TR Pk Emigdio: 1.03 TR Pk Grad: 4.00 RA Press: 3.00 RVSP: 7.00 Great Vessels Aorta Sinus of Valsalva: 2.90 2.0-3.[address] [place]: 2.62 1.7-3.4 cm Ao Asc: 2.80 2.1-3.4 cm Ao Arch: 3.10 Updated in Other Vendor System with Status of Final Mars Lieberman MD electronically signed on 08/23/2021 4:09:49 PM with status of Final
--- NOTE | 2021-08-23 14:03 | MHC.CM.PN ---
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
[2021-08-23] MEDS: ondansetron HCL 4 MG/2 ML VIAL IVPUSH (15:55)
[2021-08-24] VITALS (7 sets, daily range): BP systolic 129–143; BP diastolic 65–82; PULSE 66–85; RESP 17–18; TEMP 36.1–36.3; O2SAT 94–98
[2021-08-24] MEDS: methylPREDNISolone Sod Succ 40 MG/ML VIAL IVPUSH ×2 (02:58→12:27)
[2021-08-24] MEDS: oxyCODONE HCl Immed Release 5 MG TABLET PO (03:48)
[2021-08-24] MEDS: Albuterol Sulfate (0.083%) 2.5 MG/3 ML VIAL.NEB INHALE (04:10)
[2021-08-24] MEDS: Albuterol/Iprat 2.5/0.5MG 3 ML AMPUL.NEB INHALE ×2 (07:48→11:42)
[2021-08-24] MEDS: methADONE HCl 20 MG/2 ML ORAL.CONC 75 MG PO (08:07)
[2021-08-24] MEDS: Enoxaparin Sodium 40 MG/0.4 ML SYRINGE SUBCUT (08:08)
[2021-08-24] MEDS: 0.9 % Sodium Chloride Flush 3 ML SYRINGE IVFLUSH (08:08)
[2021-08-24] MEDS: Nicotine 14 MG PATCH.TD24 TRANSDERMA (08:11)
--- NOTE | 2021-08-24 09:53 | P.DS_ITS ---
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 The patient reports that her symptoms began with generalized malaise with subsequently cough and pleuritic back pain. She began feeling short of breath with exertion and eventually even at rest. She reports she went into work on the night prior to admission and could not complete her shift due to severe fatigue and shortness of breath. She attempted, over the last several days, to use her PRN albuterol inhaler without any improvement. Upon arrival to the ED, she was found to be tachypenic in the high 20s/low 30s, tachycardic in the 120s and hypoxic down to 74% on RA which improved to 89-90% o n 6L. She was given IV steroids, bronchodilators and IV antibiotics. Her symptoms improved but she remains hypoxic requiring 3L to keep O2 saturations >90. COVID vaccination status -- 3 doses of mRNA booster discharge diagnosis: acute respiratory failure with hypoxia acute COPD exacerbation possible bacterial bronchitis tobacco dependence T wave inversions on EKG Hospital course by problem: acute respiratory failure with hypoxia secondary to acute COPD exacerbation and suspected bacterial bronchitis. Patient was started on scheduled and as needed bronchodilator therapy. She initially required supplemental oxygen to maintain oxygen saturation greater than 90%. She was started on systemic steroids and antibiotic coverage. She was gradually able to be weaned off of oxygen and is currently on room air. She has remained afebrile. Her wheezing and breathing have improved and she is now eager to return home. She will be discharged home to complete course of antibiotics and steroids. She is encouraged to stop smoking and will be provided with nicotine patch on discharge. She was noted to have T-wave inversions on her EKG. Highly sensitive troponin was checked and negative x2. She did not describe any chest pain. Echocardiogram showed no evidence of wall motion abnormality. She will be referred to Cardiology to be seen as an outpatient to determine need for any further workup. Time Spent with Patient Time attestation: Total time spent providing and/or coordinating discharge services: Discharge coordination time: Greater than 30 minutes Quality: Safe Use of Opioids Does Pt have an Active Cancer Diagnosis on the Problem List?: No Quality: Stroke Does the patient have a stroke diagnosis?: No Physical Exam Vital Signs: Vital Signs: Last Vital Signs Temp 97.4 F 08/24/21 07:46 Pulse 72 08/24/21 07:52 Resp 18 08/24/21 07:52 BP 138/82 08/24/21 07:46 Pulse Ox 94 08/24/21 07:46 BMI result Body Mass Index 27.4 Const: General: cooperative, comfortable, alert and awake Nutritional Appearance: average body habitus Orientation/consciousness: patient oriented x3 Resp: Effort & Inspection: normal respiratory effort and able to speak in complete sentences GI: Palpation (GI): Soft to palpation and nontender Neuro: General: patient oriented x3 Extrem: General: Yes no pedal edema DS: Data Data Completed and Pending Labs on day of discharge: Preliminary micro results at discharge 08/22/21 05:40 Blood Culture - Preliminary Blood - Venous No growth after 48 hours. 08/22/21 05:40 Blood Culture - Preliminary Blood - Venous No growth after 48 hours. Discharge Plan Discharge Patient Disposition: Home, Self-Care Discharge Diagnosis: Acute respiratory failure with hypoxia Acute COPD exacerbation Abnormal EKG Tobacco Dependence Referrals: Mars Lieberman MD [Physician] - 1 Week Physician,Marguerite J [Primary Care Provider] - 1 Week Discharge Medications: New doxycycline hyclate 100 mg Tablet 100 mg PO Q12H 3 Days Qty: 6 0RF albuterol sulfate [Ventolin HFA] 90 mcg/actuation HFA aerosol inhaler 2 puff inhalation Q4-6H PRN (Reason: shortness of breath or wheezing) Qty: 6.7 0RF prednisone 20 mg tablet 40 mg PO DAILY 4 Days Qty: 8 0RF nicotine [Nicoderm CQ] 14 mg/24 hr patch 24 hour 1 patch transdermal DAILY Qty: 28 0RF Continued multivitamin Tablet 1 tab PO DAILY 0RF methadone 10 mg/mL Concentrate 75 mg PO DAILY 0RF albuterol sulfate [Ventolin HFA] 90 mcg/actuation HFA aerosol inhaler 2 puff inhalation QID PRN (Reason: dyspnea) 0RF Spiriva with HandiHaler 18 mcg capsule, w/inhalation device 1 cap inhalation DAILY 0RF cholecalciferol (vitamin D3) [Vitamin D3] 25 mcg (1,000 unit) tablet 1 tab PO DAILY 0RF naproxen 500 mg tablet 1 tab PO BID 0RF Discharge Orders: Discharge Order (Routine); Ordered 08/24/21 Ordered By: Sara Maharaj Activity on Discharge: As tolerated Stand Alone Forms: Patient Portal Discharge page Care Plan Goals: see below Health Concerns: COPD exacerbation EKG changes Plan of Treatment: Take steroids and antibiotics as prescribed until completed Recommend to stop smoking, can use nicotine patch Use albuterol as needed for shortness of breath or wheezing Call to schedule post -hospitalization follow-up appointment with PCP Call to schedule an appointment in the Cardiology Clinic due to EKG changes Return to the ED if you develop chest pain or shortness of breath Assessment: See discharge summary Discharge Date/Time: 08/24/21 13:41
--- NOTE | 2021-08-24 12:03 | MHC.CM.PN ---
NURSE LOPEZ HERNÁNDEZ ELECTRONIC MEDICAL RECORD REVIEWED ALONG WITH CASE DISCUSSED WITH STAFF NURSE AND HOSPITLAIST , MET WITH PATIENT , SHE IS AWARE THAT SHE WILL BE DISCHARGED TODAY AND EXPRESSED FEELING MUCH BETTER AND WANTING TO BE DISCHARGED DISCHARGED PLAN HOME NO SERVICES TRANSPORTATION PATIENT HAS CAR IN THE PARKING LOT PCP FOLLOW UP OPOST DISCHARGE INSTRUCTED TO PATIENT
== END 2021-08-24 13:41 | disposition home or self-care (01) | DRG 140 ==
LOC: HO.ED 06:02 → HO.EDOVER 09:14 → HO.S3 11:05
PROVIDERS: Admitting Provider Family Medicine; Emergency Provider Student in an Organized Health Care Education/Training Program; PCP Internal Medicine; Visit Provider Physician Assistant Medical
DX: J44.0 Chronic obstructive pulmonary disease with (acute) lower respiratory infection (principal); J96.01 Acute respiratory failure with hypoxia; J20.9 Acute bronchitis, unspecified; Z20.822 Contact with and (suspected) exposure to COVID-19; J44.1 Chronic obstructive pulmonary disease with (acute) exacerbation; F11.20 Opioid dependence, uncomplicated; Z87.01 Personal history of pneumonia (recurrent); F17.210 Nicotine dependence, cigarettes, uncomplicated; Z71.6 Tobacco abuse counseling; Z79.52 Long term (current) use of systemic steroids; Z79.899 Other long term (current) drug therapy
CPT/HCPCS: 36415; 71045; 80053; 82803; 83605; 83880; 84484; 85025; 85379; 87040; 87502; 87635; 93005; 93306; 94640; 94644; 96365; 96375; 99285; J1650; J1956; J2405; J2920; J2930

== ENCOUNTER → 2021-09-17 08:57 | Outpatient (BNVA) | payer OTHER, SELFPAY | PROVIDERS: PCP Internal Medicine; Referring Provider Internal Medicine; Visit Provider Internal Medicine Cardiovascular Disease | DX: R94.31 Abnormal electrocardiogram [ECG] [EKG] (principal) | CPT/HCPCS: 99202 ==

== ENCOUNTER 2021-09-20 11:02 | Outpatient (REF) | payer OTHER, SELFPAY ==
--- NOTE | ~2021-09-20 | MM_ITS ---
EXAMINATION: MM SCREENING DIGITAL BREAST TOMOSYNTHESIS, BILATERAL CLINICAL INFORMATION: Screening. Asymptomatic. Patient notes bilateral breast injections over 15 years ago. The lifetime risk of breast cancer based on the Tyrer-Cuzick Model is 10%. COMPARISON: Mammography: 07/23/2011 (baseline) TECHNIQUE: Digital breast tomosynthesis is performed in both the craniocaudal and mediolateral oblique views along with computer-aided detection (CAD). Synthesized 2D images are generated from the tomosynthesis. FINDINGS: The breasts are heterogeneously dense, which may obscure small masses (ACR BI-RADS breast composition Category c). Breast tissue composition borders on extremely dense. Again, there are numerous scattered bilateral round and predominantly rim lucent centered calcifications in both breasts along with numerous punctate round calcifications. Distribution is similar to the baseline exam 2012. There are no interval suspicious calcifications. No significant mass or architectural abnormality. There is a 1.8 cm left axillary node approximately 12 cm from nipple without clearly defined fatty hilus. This node was not imaged on prior study and chronicity is uncertain. Patient will be recalled to further characterize. Right axilla unremarkable. MM/MM tomosynthesis screening BI IMPRESSION: -Innumerable bilateral rim and punctate round calcifications similar to prior baseline exam 2012. -Breast parenchymal pattern similar to baseline exam. -Left axillary node without appreciable fatty hilus, not previously imaged. ASSESSMENT: BI-RADS 0: Incomplete - Need Additional Imaging Evaluation RECOMMENDATION: 1. Targeted ultrasound left axilla. 2. Radiology department staff will contact the patient for additional imaging. This patient's information was entered into a reminder system with a target due date for their next mammogram.
== END 2021-09-20 11:03 | disposition home or self-care (01) ==
LOC: HO.MAMMO 11:02
PROVIDERS: PCP Internal Medicine; Visit Provider Internal Medicine
DX: Z12.31 Encounter for screening mammogram for malignant neoplasm of breast (principal)
CPT/HCPCS: 77063; 77067

== ENCOUNTER 2021-09-28 13:51 | Outpatient (REF) | payer OTHER, SELFPAY ==
--- NOTE | ~2021-09-28 | US_ITS ---
EXAMINATION: US DIAGNOSTIC BREAST, LEFT CLINICAL INFORMATION: Call back for abnormal lymph node on mammography. COMPARISON: 07/23/2011 and 09/20/2021. TECHNIQUE: Ultrasound of the breast is performed with real-time weston scale imaging and color Doppler. FINDINGS: On questioning of the patient, she does have tattoos and also a history of having multiple injections performed within the left breast. She was not sure what the injections were; however, these were likely silicone due to appearance of axillary lymph nodes. Within the axilla, there are multiple foci of heterogeneously hyperechoic structures with distal sound shadowing with the appearance of a snowstorm with the appearance of lymph nodes infiltrated with silicone. Recommend 6-month followup left breast mammogram to ensure stability. Results are discussed with the patient at time of visit. US/US breast LT limited IMPRESSION: Abnormal left axillary lymph nodes have the appearance of lymph nodes infiltrated with silicone. ASSESSMENT: BI-RADS 3: Probably Benign RECOMMENDATION: Diagnostic mammography in 6 months. This patient's information was entered into a reminder system with a target due date for their next mammogram.
== END 2021-09-28 13:52 | disposition home or self-care (01) ==
LOC: HO.MAMMO 13:51
PROVIDERS: PCP Internal Medicine; Visit Provider Internal Medicine
DX: N64.89 Other specified disorders of breast (principal)
CPT/HCPCS: 76642

== ENCOUNTER → 2021-10-08 09:35 | Outpatient (REF) | payer OTHER, SELFPAY ==
--- NOTE | ~2021-10-08 | NM_ITS ---
EXERCISE MYOCARDIAL PERFUSION STUDY INDICATION: Abnormal EKG, assess for coronary disease and ischemia TECHNIQUE: The patient was brought in for an exercise perfusion study on 10/08/2021. Patient performed exercise as per Maynor protocol and was injected 25 mCi of sestamibi once target heart rate was achieved. Images were obtained using the SPECT gamma camera interlaced with the gating device. Images were obtained in supine position. Resting perfusion study was performed on 10/12/2021. Patient was administered 25 mCi of sestamibi intravenously at rest. Images were then obtained in supine position. Total DLP 78mGy-cm. Images were processed with the software and compared side to side in short axis, horizontal long axis and vertical long axis views. FINDINGS: Raw images were reviewed. The stress perfusion study showed no significant perfusion abnormality. Both uncorrected as well as CT attenuation corrected images were reviewed. The gated study shows normal LV systolic function with calculated LVEF of 67%. LV cavity is normal in size. The gated study shows normal wall thickening and contraction of segments. Resting study shows no significant perfusion abnormality. Gating at rest reveals normal wall motion with ejection fraction at 71%. The findings are consistent with no reversible or fixed perfusion defects. NM/NM cardiolite stress test IMPRESSION: 1. Myocardial perfusion imaging study shows normal myocardial perfusion. 2. Gated LVEF is 67% during stress and 71% during rest. 3. Transient ischemic dilatation not present. EKG component of the test reported separately.
--- NOTE | 2021-10-08 09:40 | CA_ITS ---
Acquisition Time: 2021-10-08 09:58:08 Total Exercise Time: 00:06:36 Test Indications: ABN EKG Medications: SEE CHART Protocol: JOSE LUIS Max HR: 151 BPM 90% of Pred: 167 BPM Max BP: 142/084 mmHG Max Work Load: 7.0 METS Exercise stress test with exercise 6 min 36 sec of Jose Luis protocol ( stage 2 held), without anginal symptoms, with isolated PVC, with normotensive response to exercise, without EKG changes meeting criteria for ischemia. Nuclear images pending. Test reviewed with Dr Quezada. Referred By: Mars Lieberman Overread By: LILLY BARKER
== END ==
LOC: HO.CARD 09:35
PROVIDERS: PCP Internal Medicine; Visit Provider Internal Medicine Cardiovascular Disease
DX: R07.9 Chest pain, unspecified (principal); R94.31 Abnormal electrocardiogram [ECG] [EKG]
CPT/HCPCS: 78452; 93017; A9500

== ENCOUNTER 2022-04-19 07:46 | Outpatient (REF) | payer OTHER, SELFPAY ==
--- NOTE | ~2022-04-19 | MM_ITS ---
EXAMINATION: MM DIAGNOSTIC DIGITAL BREAST TOMOSYNTHESIS, LEFT CLINICAL INFORMATION: Six-month follow up of left axillary lymph node. History of breast injections. COMPARISON: Mammography: 09/28/2021 and studies dating back to 07/23/2011. TECHNIQUE: Digital breast tomosynthesis was performed in both the craniocaudal and mediolateral oblique views along with computer-aided detection (CAD). Synthesized 2D images were generated from the tomosynthesis. Additional left breast exaggerated craniocaudal view performed. FINDINGS: The breasts are heterogeneously dense, which may obscure small masses (ACR BI-RADS breast composition Category c). There are again noted to be numerous round, rim calcified lesions which appear to be postsurgical fat necrosis without change. The left axillary lymph node appears unchanged and has been seen on previous ultrasounds to represent a silicone infiltrated lymph node. No new suspicious mass or new more suspicious grouping of calcifications is identified. Results are provided to the patient at time of visit by the technologist. MM/MM tomosynthesis diagnostic LT IMPRESSION: There are no significant changes from prior study. ASSESSMENT: BI-RADS 2: Benign RECOMMENDATION: Routine annual mammography screening, due in 6 months. This patient's information was entered into a reminder system with a target due date for their next mammogram.
== END 2022-04-19 07:47 | disposition home or self-care (01) ==
LOC: HO.MAMMO 07:46
PROVIDERS: PCP Internal Medicine; Visit Provider Internal Medicine
DX: N63.32 Unspecified lump in axillary tail of the left breast (principal)
CPT/HCPCS: 77061; 77065

== ENCOUNTER 2023-03-14 08:02 | Emergency (ER) | payer OTHER, SELFPAY ==
[2023-03-14 08:06] VITALS: BP 167/87; PULSE 70; RESP 18; TEMP 36.6; O2SAT 99; BMI 27.3
[2023-03-14 08:38] LABS: IDNOW Serial# 08D9AD1C
[2023-03-14 08:39] LABS: COVID-19 Test Positive (Negative)
--- OUTSIDE RECORDS SUMMARY | 2023-03-14 08:59 | XMS_ITS | Patient Health Record ---
Author Name Unknown Organization [facility] Address [address], [place] [id number] Care Team Providers Care Implementation Project Manager Name Role Phone [facility] Primary Care Provider Janneth vailable ALLERGIES Allergen (clinical drug ingredient) Drug/Non Drug Allergy documented on EMR Reaction Allergy Type Onset Date Status bee sting (uncoded) anaphylaxis Allergy Active REASON FOR REFERRAL No Information MEDICATIONS Medication SIG (Take, Route, Frequency, Duration) Notes Start Date End Date Status methadone 10 mg/mL 30mg orally once a day [facility] Active IMMUNIZATIONS Vaccine Route Administration Date Status Comme nts Hepatitis B (20 or more) IM Intramuscular 12/27/2014 Admin istered Influenza IM Intramuscular 04/04/2015 Administered Hepatitis B (20 or more) IM Intramuscular 04/04/2015 Admin istered Hepatitis B (20 or more) IM Intramuscular 10/31/2015 Admin istered Influenza IM Intramuscular 02/06/2016 Administered Pneumococcal IM Intramuscular 02/06/2016 Administered SOCIAL HISTORY Tobacco Use: Social History Observation Description Date Details (start date - stop date) Current Smoker NA - NA Sex Assigned At : Social History Observation Description Sex Assigned At Unknown Tobacco Use Assessment MU Question Answer Notes What is your current smoking status? current smoker How often do you smoke? every day How many cigarettes a day do you smoke? 11-20 How soon after you wake up d o you smoke your first cigarette? Within 5 minutes Are you interested in quitting? 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) Active confirmed Viral hepatitis type C (75927858) Problem Overweight (E66.3) Active confirmed Overweight (155291753) Problem Opioid abuse, uncomplicated (F11.10) Active confirmed Opioid abuse (4256538) Problem Nicotine dependence, unspecified, uncomplicated (F17.200) Active confirmed Tobacco user (878551358) Problem Dermatitis, unspecified (L30.9) Active confirmed Dermatitis (567726154) Problem Urinary tract infection, site not specified (N39.0) Active confirmed Urinary tract infectious disease (66330793) Problem Other specified abnormal findings of blood chemistry (R79.89) Active confirmed Blood chemistry abnormal (202277576) Problem Encounter for screening mammogram for malignant neoplasm of breast (Z12.31) Active confirmed Screening fo r malignant neoplasm of breast (842523463) PLAN OF TREATMENT No Information Insurance Providers Payer Name Payer Address Payer Phone Subscriber Number Group Number Insured Name Patient Relationship to Insured Coverage Start Date Coverage End Date [place] Medicaid [employer] [address] [place], [place] [id number] Yessica Natarajan Self - patient is the insured MEDICAL (GENERAL) HISTORY Medical History History ICD Code Hep C--genotype 3 Hx opiate, cocaine/crack, marijuana tobacco use ? depression w/anxiety Surgical History Surgery Date(Month/Year) Strep pneumonia with chest tubes 1993 [facility] x3 dental extraction 13 teeth 10/2015 Hospitalization History Reason Date(Month/Year) [facility], strep pneumonia 1993 [facility] for child[facility], C-secion x3
--- OUTSIDE RECORDS SUMMARY | 2023-03-14 08:59 | XMS_ITS | Continuity of Care Document ---
Author Name Unknown Organization [facility] Address [address] [place] [address]- Care Team Providers Care Zig Zag Stitcher Name Role Phone Zachary Bryant MD Primary Care Physician [place] [facility] [place]11[place]20 - 03/13/[address] [address]- Encounter Diagnosis Acute respiratory failure with hypoxia(Final) - 03/11/20 Acute respiratory failure with hypoxia(Final) - 03/12/20 Discharge Disposition: A-D/C Home Attending Physician: Karlene ARBOLEDA, Myke Admitting Physician: Bassem Viveros MD Referring Physician: Not on Staff, Referring MD Allergies, Adverse Reactions, Alerts Substance Reaction Severity Status Bee Stings Swelling Active Medications Chantix Starter Pack 0.5 mg-1 mg oral tablet 1 tablet, By Mouth, 2 times a day, as directed on package labeling, # 53 tablet, 0 Refills, Maintenance, 03/11/20 20:43:00 EST, Tablet Start Date: 03/11/20 Status: Ordered Methadone Liquid = 65 mcg, By Mouth, 0 Refills, Maintenance, 11/16/18 11:40:35 EDT, Partial fill upon patient request Start Date: 11/16/18 Status: Ordered Musely Spot Cream Erase NoC w/hydrocortisone2.5% Start with a pea size amount (1 full pump) to spots at night, OR directions per MD. Use eNurse software on [employer] to guide you daily. Start Date: 03/11/20 Status: Ordered predniSONE 20 mg oral tablet 2 tablet = 40 mg, By Mouth, Daily, for 4 days, # 8 tablet, 0 Refills, Acute 03/16/20 9:23:00 EST, 03/12/20 9:23:00 EST, Tablet, [facility], 150, cm, 03/12/20 8:06:00 EST, Height, 63.8, kg, 03/11/20 22:03:00 EST, Dry Weight Start Date: 03/12/20 Stop Date: 03/16/20 Status: Ordered ProAir HFA 90 mcg/inh inhalation aerosol with adapter Inhalation, prn, Refills 0, Maintenance, 04/21/18 14:26:37 EST Start Date: 04/21/18 Status: Ordered Spiriva HandiHaler 18 mcg Inhalation Capsule 1 capsule = 18 mcg, Inhalation, Daily, 0 Refills, Maintenance, 04/21/18 14:26:07 EST Start Date: 04/21/18 Status: Ordered Problem List Condition Effective Dates Status Health Status Inform ant History of COPD(Confirmed) Active Methadone dependence(Confirmed) Active MARGY on CPAP(Confirmed) Active Procedures Procedure Date Related Diagnosis Body Site Status section x3 Compl eted Results Radiology Reports * Exam Date Time Procedure Performing Provider Status 03/11/20 10:34 AM Chest Portable Scott , Lily; Auth ( Verified) Notes: (Chest Portable) Reason For Exam: Cough RESULT: Chest Portable Chest Portable Indication right-sided pain. Difficulty breathing COMPARISON: 01/14/2018 FINDINGS: LINES AND TUBES: None. LUNGS AND PLEURA: Clear lungs. Normal pulmonary vascularity. No pleural effusion. No pneumothorax. HEART, MEDIASTINUM AND BETO: Heart is normal in size. Normal mediastinal and hilar contour. BONES AND SOFT TISSUES: No acute abnormality. IMPRESSION: No acute abnormality. WSN: [id number] Ordering Physician: Sidney Gonzalez Dictated By: Darryl Mchugh MD Dictated Date/Time: 03/11/20 10:35 a Reviewed By: Darryl Mchugh MD Signed By: Darryl Mchugh MD Signed Date/Time: 03/11/20 10:35 am Transcribed By: KARIME Transcribed Date/Time: 03/11/20 10:34 am Vital Signs Most recent to oldest [Reference Range]: 1 2 3 Height 150 cm (03/13/20 7:42 AM) 150 cm (03/13/20 3:18 AM) 150 cm (03/12/20 7:59 PM) Weight 65.0 kg (03/12/20 2:46 AM) 63.8 kg (03/11/20 10:07 PM) 63.8 kg (03/11/20 9:59 PM) Oxygen Saturation [94-100 %] 94 % (03/13/20 7:42 AM) 100 % (03/13/20 3:18 AM) 100 % (03/12/20 7:59 PM) Pulse Rate [55-90 bpm] 64 bpm (03/13/20 7:42 AM) 71 bpm (03/13/20 3:18 AM) 71 bpm (03/12/20 7:59 PM) Body Mass Index [18.5-24.99] 28.89 *H* (03/12/20 2:46 AM) 28.36 *H* (03/11/20 10:07 PM) 28.36 *H* (03/11/20 9:59 PM) Blood Pressure [90-138/55-84 mm Hg] 111/68mm Hg (03/13/20 7:42 AM) 125/63mm Hg (03/13/20 3:18 AM) 121/63mm Hg (03/12/20 7:59 PM) Respiratory Rate [16-30 br/min] 18 br/min (03/13/20 10:03 AM) 16 br/min (03/13/20 9:03 AM) 18 br/min (03/13/20 7:42 AM) Temperature [96.8-100.4 DegF] 97.7 DegF (03/13/20 7:42 AM) 97.9 DegF (03/13/20 3:18 AM) 98.6 DegF (03/12/20 7:59 PM) Liters per Minute 2 L/min (03/13/20 7:42 AM) 2 L/min (03/13/20 3:18 AM) 2 L/min (03/12/20 7:59 PM) Mode of Delivery (Oxygen) Nasal cannula (03/13/20 7:42 AM) Nasal cannula w/oxymizer (03/13/20 3:18 AM) Nasal cannula (03/12/20 7:59 PM) Blood pressure sites Arm, right (03/13/20 7:42 AM) Arm, right (03/13/20 3:18 AM) Arm, right (03/12/20 7:59 PM) Temperature Route Oral (03/13/20 7:42 AM) Oral (03/13/20 3:18 AM) Oral (03/12/20 7:59 PM) Dry Weight 63.8 kg (03/11/20 9:59 PM) Weight Obtained Via Bed scale (03/12/20 2:46 AM) Bed scale (03/11/20 10:07 PM) Social History Social History Type Response Smoking Status 10 or more cigarette s (1/2 pack or more)/day in last 30 days; Use: Current smoker.; Other: Onset 18years old; entered on: 03/11/20 Sex
--- NOTE | 2023-03-14 09:12 | ED.GENADULT ---
HPI - General Adult General Chief complaint: Upper Respiratory Symptoms Stated complaint: covid test Time Seen by Provider: 03/14/23 09:08 Source: patient Mode of arrival: ambulatory Limitations: no limitations History of Present Illness HPI narrative: Patient is a 52 year old assigned female at with a history of COPD presenting to the emergency department today requesting a COVID-19 test. Patient states that she has had a cough and some nausea, took a test at home and was positive but needs confirmation and a work note. Patient denies any dizziness, lightheadedness, abdominal pain, vomiting, fever, chills, blurry vision, double vision, loss of vision, chest pain, difficulty breathing, shortness of breath, back pain, night sweats, pain with urination, increased urinary frequency, increased urinary urgency, blood in her urine or stool, syncope or a near syncopal episode, recent trauma or falls, bowel incontinence, bladder incontinence, bowel retention, bladder retention, or any other complaints at this time. Onset (ago): day(s) Radiation: non-radiation Severity: mild Relieving factors: none Exacerbating factors: none Associated symptoms: cough and nausea/vomiting Treatments prior to arrival: none Related Data Home Medications Medication Instructions Recorded Confirmed albuterol sulfate 90 mcg/actuation 2 puff inhalation QID PRN dyspnea 08/22/21 09/17/21 aerosol inhaler (Ventolin HFA) cholecalciferol (vitamin D3) 25 1 tab PO DAILY 08/22/21 08/22/21 mcg (1,000 unit) tablet (Vitamin D3) methadone 10 mg/mL oral concentrate 75 mg PO DAILY 08/22/21 09/17/21 multivitamin 1 tab PO DAILY 08/22/21 09/17/21 tiotropium bromide 18 mcg capsule 1 cap inhalation DAILY 08/22/21 09/17/21 with inhalation device (Spiriva with HandiHaler) cyclobenzaprine 10 mg tablet 10 mg PO TID 09/17/21 09/17/21 Previous Rx's Medication Instructions Recorded nicotine 14 mg/24 hr daily 1 patch transdermal DAILY #28 ea 08/24/21 transdermal patch (Nicoderm CQ) Allergies Allergy/AdvReac Type Severity Reaction Status Date / Time No Known Allergies Allergy Verified 03/14/23 08:06 Review of Systems Constitutional: Constitutional: Reports no additional constitutional complaints, Denies chills, Denies fever(s) and Denies night sweats Eyes: Eyes: Reports no additional eye complaints, Denies blurry vision, Denies change in vision, Denies diplopia, Denies eye discharge, Denies loss of vision and Denies eye pain ENT: Denies dizziness Cardiovascular: Cardiovascular: Reports no additional cardiovascular complaints, Denies chest pain, Denies lightheadedness, Denies Loss of Consciousness and Denies dyspnea Respiratory: Respiratory: Reports no additional respiratory complaints, Reports cough and Denies dyspnea Gastrointestinal: Gastrointestinal: Reports no additional gastrointestinal complaints, Denies abdominal pain, Denies melena, Denies hematochezia, Denies change in bowel habits, Denies change in stool character and Reports nausea Genitourinary: Genitourinary: Denies hematuria, Denies urinary frequency, Denies dysuria, Denies urinary incontinence, Denies urinary hesitancy and Denies urinary urgency Musculoskeletal: Musculoskeletal: Reports no additional musculoskeletal complaints, Denies numbness and Denies tingling Neurologic: Denies dizziness, Denies loss of vision, Denies numbness and Denies tingling Psychiatric: Psychiatric: Reports no additional psychiatric complaints Endocrine: Endocrine: Reports no additional endocrine complaints Hematologic/Lymphatic: Hematologic/Lymphatic: Reports no additional hematologic/lymphatic complaints Allergic/Immunologic: Allergic/Immunologic: Reports no additional allergic/immunologic complaints [facility] Past Medical History Attestation statement: The following information was validated with the patient. Source: old records reviewed and nursing notes reviewed Medical History Abnormal EKG Acute respiratory failure COPD exacerbation Lung collapse COPD (chronic obstructive pulmonary disease) Surgical History H/O: History of tracheostomy Family History Family History Mother No problems noted. Social History Social History Household Members: None Housing: House Do you presently have visiting nurse or other home services: No Alcohol intake: current Alcohol intake frequency: holidays/special occasions only Patient Tobacco Use Status: Current everyday Tobacco user Tobacco use type: Cigarette Cigarette Packs Per Day: 1.5 Cigarettes Per Day: 30.0 Advance Directives: No Advance Directives Information Provided: Yes service: No Current occupational status: employed Physical Exam ED Vital Signs: Vital Signs - 24 hr 03/14/23 08:06 Temperature 97.9 F Pulse Rate 70 Respiratory Rate 18 Blood Pressure 167/87 H Pulse Oximetry 99 Oxygen Delivery Method Room Air BMI result Body Mass Index 27.3 Const General: cooperative, no acute distress, alert and awake Nutritional Appearance: well nourished Orientation/consciousness: patient oriented x3 Limitations: no limitations HENMT Head: Yes normal to inspection and Yes atraumatic Ears: hearing grossly normal bilaterally and external ears normal General nose exam: Normal external nose present, no nasal discharge noted and no epistaxis Face and sinus: Yes normal facial exam, No abrasion and No laceration Mouth: Normal oral and palatal mucosa present, no drooling and no muffled voice Eyes General: appearance normal, both eyes and all related structures Periorbital: periorbital findings normal Eyelids: Yes eyelids normal Conjunctivae: conjunctivae normal Pupils: Equal, round and reactive pupils present EOM: EOMs intact bilaterally Neck Neck: Yes normal visual inspection, Yes full ROM and Yes no lymphadenopathy Chest Chest palpation & inspection: normal inspection of the chest Resp Effort & Inspection: normal respiratory effort and able to speak in complete sentences Auscultation: clear to auscultation bilaterally GI Inspection: Yes normal to inspection Neuro General: patient oriented x3 and moves all extremities Cranial nerves: Yes Equal, round and reactive pupils present Cognition (Neuro): normal cognition Motor exam (neuro): 5/5 motor strength present throughout Sensory Exam: Normal double simultaneous stimulation for sensation Coordination: [id number] test normal Extrem General: Yes normal to inspection, Yes full ROM and Yes capillary refill normal Psych Appearance: grossly normal Mental Status: mental status grossly normal Affect: normal affect Attitude: cooperative Thought process: Normal thought process present Thought content: Normal thought content present Insight: Good insight present (Psych) Medical Decision Making Medical Decision Making MDM Narrative: Patient is a 52 year old assigned female at with a history of COPD presenting to the emergency department today with a cough and nausea. Patient's physical exam was unremarkable. Patient's COVID-19 test was positive. I explained my physical exam findings as well as all test results to the patient. I answered all questions asked by the patient. I stressed the importance of the patient taking her medication as prescribed. I stressed the importance of the patient following up with her primary care provider. I stressed the importance of the patient returning to the emergency department immediately if her symptoms were to worsen or if she were to develop any dizziness, shortness of breath, difficulty breathing, chest pain, blurry vision, loss of vision, nausea, vomiting, abdominal pain, fever, chills, back pain, or any other complaints. Patient verbalized agreement and understanding with this treatment plan and discharge. Differential Diagnosis Differential Diagnoses: The differential diagnosis associated with the presentation includes COVID-19 URI Lab Data [facility] Lab Attestation statement: I reviewed the patient's lab results. My interpretation of these results are in the [facility] Rationale portion of this note. Labs: Lab Results 03/14/23 Range/Units 08:11 COVID-19 (TESHA) Positive A (Negative) COVID-19 Clin Com See Note Discharge Plan Discharge Clinical Impression: COVID-19 Patient Disposition: Home, Self-Care Instructions: COVID-19 (Coronavirus Disease 2019) (ED) Additional Instructions: Follow up with your primary care provider. Return to the emergency department immediately if your symptoms worsen or if you develop any dizziness, shortness of breath, difficulty breathing, chest pain, blurry vision, loss of vision, nausea, vomiting, abdominal pain, fever, chills, back pain, or any other complaints. Prescriptions: No Action multivitamin Tablet 1 tab PO DAILY methadone 10 mg/mL Concentrate 75 mg PO DAILY albuterol sulfate [Ventolin HFA] 90 mcg/actuation HFA aerosol inhaler 2 puff inhalation QID PRN (Reason: dyspnea) Spiriva with HandiHaler 18 mcg capsule, w/inhalation device 1 cap inhalation DAILY cholecalciferol (vitamin D3) [Vitamin D3] 25 mcg (1,000 unit) tablet 1 tab PO DAILY nicotine [Nicoderm CQ] 14 mg/24 hr patch 24 hour 1 patch transdermal DAILY Qty: 28 0RF cyclobenzaprine 10 mg tablet 10 mg PO TID Referrals: [facility] [place] Family Medicine [Provider Group] (Call to establish and follow up with a primary care provider. If you already have a primary care provider, please follow up with them.) [facility] Primary [facility] [Provider Group] (Call to establish and follow up with a primary care provider. If you already have a primary care provider, please follow up with them.) [facility] Primary Carmelo Mejia [Provider Group] (Call to establish and follow up with a primary care provider. If you already have a primary care provider, please follow up with them.) Stand Alone Forms: Work/School Release Interventions: ED Discharge Assessment Last Done: 03/14/23 09:51 Discharge Date/Time: 03/14/23 09:52 Print Language: Ukrainian
== END 2023-03-14 09:52 | disposition home or self-care (01) ==
PROVIDERS: Emergency Provider Emergency Medicine
DX: U07.1 COVID-19 (principal); R05.9 Cough, unspecified; R11.2 Nausea with vomiting, unspecified; Z79.899 Other long term (current) drug therapy; F17.210 Nicotine dependence, cigarettes, uncomplicated; Z71.6 Tobacco abuse counseling
CPT/HCPCS: 87635; 99282; 99283

== ENCOUNTER 2023-06-04 12:25 | Outpatient (REF) | payer OTHER, SELFPAY ==
--- NOTE | ~2023-06-04 | XR_ITS ---
EXAMINATION: XR SHOULDER, LEFT CLINICAL INFORMATION: Chronic left shoulder pain COMPARISON: None available. TECHNIQUE: AP external rotation, Grashey, scapular Y, and axillary views of the left shoulder. FINDINGS: The bones and soft tissues are normal. No fracture. Glenohumeral and acromioclavicular alignment is anatomic with normal acromioclavicular joint space. Mild narrowing of the glenohumeral joint with small marginal osteophyte extending off the humeral head. No abnormal soft tissue calcifications. XR/XR shoulder LT min 2V IMPRESSION: Mild degenerative change of the glenohumeral joint.
== END 2023-06-04 12:26 | disposition home or self-care (01) ==
LOC: HO.XRAY 12:25
PROVIDERS: PCP Internal Medicine; Visit Provider Family Medicine
DX: M25.512 Pain in left shoulder (principal); G89.29 Other chronic pain
CPT/HCPCS: 73030

== ENCOUNTER 2023-06-18 12:44 | Outpatient (REF) | payer OTHER, SELFPAY ==
[2023-06-18 14:57] LABS: Alanine Aminotransferase 26 U/L (0-31); Albumin Level 4.1 g/dL (3.5-5.0); Alkaline Phosphatase 77 U/L (39-117); Anion Gap 7 (12-20); Aspartate Amino Transferase 26 U/L (5-31); Bilirubin Total 0.3 mg/dL (0.0-1.0); Blood Urea Nitrogen 8 mg/dL (9-16); Calcium 9.4 mg/dL (8.4-10.2); Carbon Dioxide 38 mmol/L (22-29); Chloride 101 mmol/L (96-108); Estimated Glomerular Filt Rate > 60; Glucose Random 95 mg/dL (60-115); Sodium 142 mmol/L (135-145); Total Protein 7.9 g/dL (6.5-8.0)
[2023-06-18 15:07] LABS: TSH reflex Free T4 6.21 uIU/mL (0.32-4.0)
[2023-06-18 16:19] LABS: Free T4 (Free Thyroxine) 1.07 ng/dL (0.71-1.85)
== END 2023-06-18 12:45 | disposition home or self-care (01) ==
LOC: HO.CHCLDS 12:44
PROVIDERS: Visit Provider Internal Medicine
DX: I10 Essential (primary) hypertension (principal)
CPT/HCPCS: 36415; 80053; 84439; 84443

== ENCOUNTER 2023-07-04 08:52 | Outpatient (REF) | payer OTHER, SELFPAY ==
--- NOTE | ~2023-07-04 | MM_ITS ---
EXAMINATION: MM SCREENING DIGITAL BREAST TOMOSYNTHESIS, BILATERAL CLINICAL INFORMATION: Screening. Asymptomatic. The patient has a history of numerous individual silicone injections into the breast tissue. COMPARISON: Mammography: This study is compared with prior exams dating back to 2011. TECHNIQUE: Digital breast tomosynthesis is performed in both the craniocaudal and mediolateral oblique views along with computer-aided detection (CAD). Synthesized 2D images are generated from the tomosynthesis. FINDINGS: There are scattered areas of fibroglandular density (ACR BI-RADS breast composition Category b). There are no significant masses, abnormal calcifications, or other abnormalities. There are multiple areas of benign calcification with peripheral calcification representative phlebotomy services of injection granulomata from the patient's history of free silicone injections. There is also suggestion of silicone in one of the lymph nodes the lower left axilla. This is unchanged from the prior examination from 2021. MM/MM tomosynthesis screening BI IMPRESSION: No mammographic evidence of malignancy. ASSESSMENT: BI-RADS BI-RADS 2 - Benign Findings RECOMMENDATION: Routine annual mammography screening. 1 year F/U This examination should not preclude the clinical evaluation of a suspicious palpable abnormality. This patient's information was entered into a reminder system with a target due date for their next mammogram.
== END 2023-07-04 08:53 | disposition home or self-care (01) ==
LOC: HO.MAMMO 08:52
PROVIDERS: PCP Internal Medicine; Visit Provider Internal Medicine
DX: Z12.31 Encounter for screening mammogram for malignant neoplasm of breast (principal)
CPT/HCPCS: 77063; 77067

== ENCOUNTER → 2023-07-04 09:00 | Outpatient (BNV) | payer OTHER, SELFPAY | PROVIDERS: PCP Internal Medicine; Visit Provider Radiology Diagnostic Radiology | DX: Z12.31 Encounter for screening mammogram for malignant neoplasm of breast (principal) | CPT/HCPCS: 77063; 77067 ==

== ENCOUNTER 2023-07-11 07:52 | Outpatient (AMB) | payer OTHER, SELFPAY ==
[2023-07-11 08:00] VITALS: BMI 27.3
--- NOTE | 2023-07-11 08:00 | A.OFFVIS_ITS ---
Intake Vital Signs 07/11/23 08:00 Height 4 ft 11 in Weight 135 lb BMI 27.3 Intake Visit Reasons: New Pt - Left Shoulder Pain Intake Note: Yessica is a 52 year old right hand dominant female who presents today as a new patient for a evaluation of her left shoulder pain. Patient was seen at the walk in center at [facility]. She states that she has tried taking naproxen, however it didn't give her relief. Her pain has been going on for a couple of months, with no hx of injury. She has increased pain with ROM, mostly above the shoulder or lateral reaching. Pain radiates down the arm and up the neck. Denies numbness and tingling. She was taking muscle realxers which were helpful, but she is not out of them Allergies No Known Allergies Allergy (Verified 07/11/23 08:01) HPI New Pt - Left Shoulder Pain HPI Details 52-year-old right hand dominant female feliberto frankel presents to the office today for evaluation of left shoulder pain for 2 months. She was seen at walk-in center where x-rays were performed. She states she has pain in her shoulder which radiates down to her arm and up the neck region. Her pain is aggravated with overhead reaching, reaching her sides, and brushing her hairs. She denies any numbness or tingling. She has tried naproxen which did not provide her any relief. She was taking muscle relaxers with benefits however she had to discontinue as she was out of the medication. She denies any physical therapy and has not had any injury in the past. She does not have a history of diabetes. [facility] Medical History Abnormal EKG Acute respiratory failure COPD exacerbation Lung collapse COPD (chronic obstructive pulmonary disease) Surgical History H/O: History of tracheostomy Family History Mother No problems noted. 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 Review of Systems Const All systems reviewed & are unremarkable except as noted in HPI and below Physical Exam Vital Signs: BMI result Body Mass Index 27.3 Const General: cooperative, healthy appearing, comfortable, no acute distress, well developed and alert Orientation/consciousness: patient oriented x3 HEENT Head: Yes normal to inspection, Yes normocephalic and Yes atraumatic Eyes General: appearance normal, both eyes and all related structures Resp Effort & Inspection: normal respiratory effort and able to speak in complete sentences Cardio Rate: regular rate Peripheral pulses: Peripheral pulses 2+ throughout GI Palpation (GI): Soft to palpation Skin Lesions: no lesions Rashes: no rashes Neuro General: patient oriented x3 Extrem Other: Left shoulder normal to inspection. Tenderness over the bicipital groove and along the deltoid region of the shoulder and also in the trapezium muscle into the left side of the neck. Forward flexion to 175, external rotation to 90, internal rotation to S1. 5/5 RTC strength. Negative Munoz and cross body abduction. NVI. Office Procedures Joint Injection/Drain Joint Injection/Drain Primary Site: left shoulder Prep: site was prepped using aseptic technique, ethochloride spray was applied and injection warnings given Injected: 80 mg of, DepoMedrol, with 8 mL of and 1% plain lidocaine Approach Used: posterolateral Procedure: The patient tolerated the procedure well and there was some relief with the local anesthesia Coding 08689 - Glenohumeral/Tronchanteric Bursa/Intraarticular Procedure code (CPT) selection complete Results Reviewed Results Reviewed: xrays of the left shoulder obtained on 06/04/23 IMPRESSION: Mild degenerative change of the glenohumeral joint. Assessment & Plan Assessment & Plan (1) Neck pain, acute: Code(s): M54.2 - Cervicalgia (2) Trapezius muscle strain: Code(s): S46.819A - Strain of other muscles, fascia and tendons at shoulder and upper arm level, unspecified arm, initial encounter Qualifiers: Encounter type: initial encounter Laterality: left Qualified Code(s): S46.812A - Strain of other muscles, fascia and tendons at shoulder and upper arm level, left arm, initial encounter (3) Left shoulder tendonitis: Code(s): M77.8 - Other enthesopathies, not elsewhere classified Plan We discussed options today which include steroid injection. They did consent to move forward with the left shoulder injection, which was tolerated well. I recommended rest, ice and elevation and OTC anti-inflammatories PRN for discomfort. She was also given a course of physical therapy in the office today. If symptoms persist or worsens over the next 6-8 weeks, patient will contact the office, otherwise follow-up as needed. Orders: Orders PT Evaluation and Treatment Today M54.2 - Cervicalgia, M77.8 - Other enthesopathies, not elsewhere classified, S46.819A - Strain of other muscles, fascia and tendons at shoulder and upper arm level, unspecified arm, initial encounter Patient Instructions: Scribed for Hunter Vazquez PA-C, by Matt Vega medical terminologist, on 07/11/2023 at 8:00 AM EST. I, Hunter Vazquez PA-C, have personally reviewed and agree with the information entered by the scribe. Coding Level of Care Code New Pt Level 3 (67480) Diagnoses Neck pain, acute M54.2 Strain of left trapezius muscle, initial encounter S46.812A Encounter type: initial encounter Laterality: left Left shoulder tendonitis M77.8 CPT Codes Coding - Joint 7: 77718 - Glenohumeral/Tronchanteric Bursa/Intraarticular ([id number])
== END 2023-07-11 09:10 | disposition home or self-care (01) ==
PROVIDERS: PCP Internal Medicine; Visit Provider Physician Assistant
DX: M54.2 Cervicalgia (principal); S46.812A Strain of other muscles, fascia and tendons at shoulder and upper arm level, left arm, initial encounter; M77.8 Other enthesopathies, not elsewhere classified
CPT/HCPCS: 20610; 99203

== ENCOUNTER → 2023-07-11 07:52 | Outpatient (BNVA) | payer OTHER, SELFPAY | PROVIDERS: PCP Internal Medicine; Visit Provider Physician Assistant | DX: M77.8 Other enthesopathies, not elsewhere classified (principal); S46.812A Strain of other muscles, fascia and tendons at shoulder and upper arm level, left arm, initial encounter; M54.2 Cervicalgia | CPT/HCPCS: 20610; J1040 ==

== ENCOUNTER 2023-08-21 09:34 | Inpatient (IN) | payer OTHER, SELFPAY ==
[2023-08-21] VITALS (10 sets, daily range): BP systolic 93–188; BP diastolic 55–119; PULSE 95–121; RESP 14–24; TEMP 36.7–36.9; O2SAT 84–98; BMI 27.7
--- NOTE | ~2023-08-21 | XR_ITS ---
EXAMINATION: XR CHEST CLINICAL INFORMATION: Dyspnea COMPARISON: 08/22/2021 TECHNIQUE: Frontal view of the chest was obtained. FINDINGS: Heart and pulmonary vessels appear normal. Mild bronchial thickening is again noted. No infiltrates, effusions or lung masses seen. Osseous structures are unremarkable. XR/XR chest 1V IMPRESSION: Mild bronchial thickening. No acute intrathoracic disease.
--- NOTE | 2023-08-21 09:40 | PC.NURSE ---
placed on 3L nasal cannula during triage - now 96%
--- NOTE | 2023-08-21 10:01 | ECG_ITS ---
Test Reason : DYSPNEA Blood Pressure : / mmHG Vent. Rate : 093 BPM Atrial Rate : 093 BPM P-R Int : 140 ms QRS Dur : 076 ms QT Int : 354 ms P-R-T Axes : 078 070 044 degrees QTc Int : 440 ms Normal sinus rhythm Normal ECG When compared with ECG of 22-AUG-2021 09:46, Nonspecific T wave abnormality no longer evident in Inferior leads T wave inversion less evident in Anterior leads Referred By: Leena Gilmore Electronically Signed By:WALTER HARP
--- NOTE | 2023-08-21 10:20 | ED_ITS ---
HPI - Asthma General Chief Complaint: Dyspnea Stated Complaint: diff breathing Time Seen by Provider: 08/21/23 10:00 Source: patient and old records reviewed Mode of arrival: ambulatory Limitations: no limitations History of Present Illness HPI Narrative: 52 yo female with PMH of HTN, COPD has inhalers at home no recent prednisone notes her girlfriend was sick with a cold this weekend and she came to visit her. Patient started to feel ill 2 days ago with cough, wheezing, sputum production and has pulse ox at home noted her O2 sats. MD complaint: asthma attack and shortness of breath Onset (ago): day(s) (2) Severity: moderate Context: recent URI Associated symptoms: productive cough Asthma History: adult onset Treatments Prior to Arrival: inhaled bronchodilator Related Data Home Medications ?Medication ?Instructions ?Recorded ?Confirmed albuterol sulfate 90 mcg/actuation 2 puff inhalation QID PRN dyspnea 08/22/21 09/17/21 aerosol inhaler (Ventolin HFA) cholecalciferol (vitamin D3) 25 1 tab PO DAILY 08/22/21 08/22/21 mcg (1,000 unit) tablet (Vitamin D3) methadone 10 mg/mL oral concentrate 75 mg PO DAILY 08/22/21 09/17/21 multivitamin 1 tab PO DAILY 08/22/21 09/17/21 tiotropium bromide 18 mcg capsule 1 cap inhalation DAILY 08/22/21 09/17/21 with inhalation device (Spiriva with HandiHaler) cyclobenzaprine 10 mg tablet 10 mg PO TID 09/17/21 09/17/21 losartan 50 mg tablet mg PO 07/11/23 Previous Rx's ?Medication ?Instructions ?Recorded nicotine 14 mg/24 hr daily 1 patch transdermal DAILY #28 ea 08/24/21 transdermal patch (Nicoderm CQ) Allergies Allergy/AdvReac Type Severity Reaction Status Date / Time No Known Allergies Allergy Verified 08/21/23 09:39 Review of Systems 2 Review of Systems: Constitutional : No Fever, No Chills ENT/Mouth : No Hoarseness, No sore throat, No Rhinorrhea Eyes: No Redness, No Discharge, No Vision Changes Cardiovascular : No Chest Pain, positive SOB, positive Dyspnea on Exertion, No Edema Respiratory : positive Cough, pos Sputum, positive Wheezing, Gastrointestinal : No Nausea, No Vomiting, No Diarrhea, No abdominal Pain Genitourinary : No Dysuria, No Hematuria Musculoskeletal : No joint pain, No Myalgias Skin : No rash Neuro : No Weakness, No Numbness, No Headache Psych : No anxiety, depression Heme/Lymph: No Bruising, No Bleeding Endocrine : No Polyuria, No Polydipsia All other systems reviewed and are negative [facility] Past Medical History Attestation statement: The following information was validated with the patient. Source: old records reviewed Medical History Abnormal EKG Acute respiratory failure COPD exacerbation Lung collapse COPD (chronic obstructive pulmonary disease) Surgical History H/O: History of tracheostomy Family History Family History Mother No problems noted. 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 Oriented X3. No acute distress. Eyes: Pupils equal, round and reactive to light. ENT: Pharynx normal. Neck: Normal inspection. Neck supple. CVS: Normal heart rate and rhythm. Pulses normal. Respiratory: No respiratory distress. Breath sounds very diminished mild wheezes sats 76% on RA Abdomen: Soft and nontender. Skin: Skin warm and dry. Normal skin color. Normal skin turgor. Extremities: No lower extremity edema. Neuro: Oriented X 3. No motor deficit. No sensory deficit. Medications Administered Discontinued Medications Generic Name Dose Route Start Last Admin Trade Name Tanoq PRN Reason Stop Dose Admin Albuterol Sulfate 2.5 mg/ 0 mg 08/21/23 10:20 08/21/23 10:24 Albuterol/Ipratropium 3 ml INHALE 08/21/23 10:21 5 dose ONCE ONE Administration Ceftriaxone Sodium 1 gm/ 50 mls @ 100 mls/hr 08/21/23 10:09 08/21/23 10:55 Sodium Chloride IV 08/21/23 10:38 Infused ONCE ONE Infusion Magnesium Sulfate 2 gm in 50 mls @ 150 mls/hr 08/21/23 10:09 08/21/23 10:45 Magnesium Sulfate/H2o IV 08/21/23 10:28 Infused ONCE ONE Infusion Levalbuterol HCl 2.5 mg 08/21/23 10:54 08/21/23 11:25 Levalbuterol Hcl 1.25 Mg/3 Ml Vial.Neb INHALE 08/21/23 10:55 2.5 mg ONCE ONE Administration Methylprednisolone Sodium Succinate 125 mg 08/21/23 10:00 08/21/23 10:25 Methylprednisolone Sod Succ 125 Mg/2 Ml Vial IVPUSH 08/21/23 10:01 125 mg ONCE ONE Administration Nicotine 21 mg 08/21/23 10:20 08/21/23 10:41 Nicotine 21 Mg Patch.Td24 TRANSDERMA 08/21/23 10:21 21 mg ONCE ONE Administration Medical Decision Making Medical Decision Making [facility] Narrative: 52 yo female with PMH of HTN, COPD not on home O2 here c/o URI symptoms, productive cough, difficulty breathing and found to be hypoxic at this time will obtain labs, cultures, start on steroids, magnesium, nebs, CXR and empiric ceftriaxone. Differential Diagnosis Differential Diagnoses: The differential diagnosis associated with the presentation includes COPD, viral syndrome, pneumonia Admission/Observation Consideration of admission/observation: Escalation of care including admission/observation considered will admit given hypoxia Consult Healthcare Provider Management of the patient was discussed with: Hospitalist (will admit) Lab Data [facility] Lab Attestation statement: I reviewed the patient's lab results. 08/21/23 10:23 08/21/23 10:23 Labs: Lab Results 08/21/23 08/21/23 Range/Units 10:23 10:31 WBC 6.1 (4.8-10.8) X10*3/uL RBC 5.36 (4.20-5.50) X10*6/uL Hgb 16.3 H (12.0-16.0) g/dl Hct 48.9 H (37.0-47.0) % MCV 91.2 (80.0-98.0) fL MCH 30.4 (27.0-33.0) pg MCHC 33.3 (31.0-35.0) g/dl RDW 12.5 (11.0-16.0) % Plt Count 151 L (160-400) X10*3/uL MPV 9.1 L (9.4-12.3) fL Immature Gran % (Auto) 0.3 (0.0-0.4) % Neut % (Auto) 62.4 (45-73) % Lymph % (Auto) 24.2 (20-40) % [place] % (Auto) 11.2 H (2-11) % Eos % (Auto) 1.6 (0-4) % Baso % (Auto) 0.3 (0-2) % Lymph # (Auto) 1.5 (1.2-4.9) X10*3/uL [place] # (Auto) 0.7 (0.1-1.2) X10*3/uL Eos # (Auto) 0.1 (0.0-0.4) X10*3/uL Baso # (Auto) 0.0 (0.0-0.2) X10*3/uL Abs Immat Gran (auto) 0.02 (0.00-0.03) X10*3/uL Absolute Neuts (auto) 3.8 (2.0-8.3) x10*3/uL Absolute Nucleated RBC 0.000 (0.0-0.012) X10*3/uL Nucleated RBC % (auto) 0.0 (0.0-0.2) /100WBC VBG pH 7.32 (7.32-7.43) VBG pCO2 71 mmHg VBG pO2 35 mmHg VBG HCO3 36 H (22-26) mmol/L VBG O2 Saturation 55.0 % VBG Base Excess 7.4 mmol/L Sodium 141 (135-145) mmol/L Potassium 4.4 (3.3-5.1) mmol/L Chloride 99 (96-108) mmol/L Carbon Dioxide 38 H (22-29) mmol/L Anion Gap 8 L (12-20) BUN 7 L (9-16) mg/dL Creatinine 0.70 (0.5-1.4) mg/dL Estim Creat Clear Calc 73.6 Estimated GFR > 60 Random Glucose 92 (60-115) mg/dL Lactic Acid 1.0 (0.5-2.0) mmol/L Calcium 9.5 (8.4-10.2) mg/dL Magnesium 2.0 (1.6-2.6) mg/dL Total Bilirubin 0.3 (0.0-1.0) mg/dL Direct Bilirubin 0.1 (0.0-0.5) mg/dL AST 31 (5-31) U/L ALT 27 (0-31) U/L Alkaline Phosphatase 79 (39-117) U/L Troponin I High Sens < 2.7 (<3.5-17.0) ng/L B-Natriuretic Peptide 19 (<100) pg/mL Total Protein 8.2 H (6.5-8.0) g/dL Albumin 4.2 (3.5-5.0) g/dL Lipase 9 (8-78) U/L Procalcitonin < 0.02 ng/mL Urine Color Yellow Urine Appearance Clear Urine pH 6.0 (5.0-9.0) Ur Specific [place] <= 1.005 (1.005-1.025) Urine Protein Trace (Neg-Trace) mg/dL Urine Glucose (UA) Negative (Negative) mg/dL Urine Ketones Negative (Negative) mg/dL Urine Blood Trace H (Negative) Urine Nitrite Negative (Negative) Ur Leukocyte Esterase Negative (Negative) Urine RBC 0-2 (0-2) /HPF Urine WBC 0-5 (0-5) /HPF Ur Squamous Epith Cells 0-2 (0-2) /HPF Urine Bacteria None Seen (None Seen) Hyaline Casts 0-2 (0-2) /LPF Influenza Type A (PCR) NEGATIVE (Negative) Influenza Type B (PCR) NEGATIVE (Negative) RSV RNA Qual (PCR) NEGATIVE (Negative) SARS-CoV-2 RNA (RT-PCR) NEGATIVE (Negative) ABG Data Attestation ABG: I personally reviewed and interpreted this ABG as follows: Interpretation: no retention Independent Interpretation I performed an independent interpretation of an: EKG and Plain X-Ray (no pneumonia) Interpretation: Rate: 90 Rhythm: NSR [place]: normal Normal P waves. Normal JOANNA. Normal QRS complex. ST T wave : normal no JUDD qTC: 430 prior studies: no acute ischemia The study has been interpreted contemporaneously by me. . Radiology Impression Discussion of test interpretation with radiology: I have reviewed the radiologist's reading. External Record Review External record reviewed: Inpatient record Critical Care Time Critical Care Time Critical Care Time: Yes Total Critical Care Time: 60 Attestation: repeat nebs, hypoxia intervention, IV magnesium, admission I attest to this time spent taking care of the patient Discharge Plan Discharge Clinical Impression: Acute exacerbation of chronic obstructive airways disease, Acute hypoxic respiratory failure Patient Disposition: Admitted As Inpatient Print Language: Lebanese
[2023-08-21] MEDS: Albuterol Sulfate 2.5 MG, Albuterol/Iprat 2.5/0.5MG 3 ML 3 ML INHALE (10:24)
[2023-08-21] MEDS: cefTRIAXone sodium 1 GM in 0.9 % Sodium Chloride 50 ML IV (10:25)
[2023-08-21] MEDS: methylPREDNISolone Sod Succ 125 MG/2 ML VIAL IVPUSH (10:25)
[2023-08-21] MEDS: Magnesium Sulfate/H2O 2 GM/50 ML PIGGYBACK IV (10:25)
[2023-08-21 10:31] LABS: MANUAL DIFF FLAG NO
[2023-08-21 10:34] LABS: Basophils Percent Auto 0.3 % (0-2); Eosinophils Absolute Auto 0.1 X10*3/uL (0.0-0.4); Eosinophils Percent Auto 1.6 % (0-4); Hematocrit 48.9 % (37.0-47.0); Hemoglobin 16.3 g/dl (12.0-16.0); Imm Gran Abs Auto 0.02 X10*3/uL (0.00-0.03); Imm Gran Pct Auto 0.3 % (0.0-0.4); Lymphocytes Absolute Auto 1.5 X10*3/uL (1.2-4.9); Lymphocytes Percent Auto 24.2 % (20-40); Mean Corpuscular HGB Conc 33.3 g/dl (31.0-35.0); Mean Corpuscular Hemoglobin 30.4 pg (27.0-33.0); Mean Corpuscular Volume 91.2 fL (80.0-98.0); Mean Platelet Volume 9.1 fL (9.4-12.3); Monocytes Absolute Auto 0.7 X10*3/uL (0.1-1.2); Monocytes Percent Auto 11.2 % (2-11); Neutrophils Absolute Auto 3.8 x10*3/uL (2.0-8.3); Neutrophils Percent Auto 62.4 % (45-73); Platelet Count 151 X10*3/uL (160-400); Red Blood Count 5.36 X10*6/uL (4.20-5.50); Red Cell Distribution Width 12.5 % (11.0-16.0); White Blood Count 6.1 X10*3/uL (4.8-10.8)
[2023-08-21 10:37] LABS: VBG Base Excess 7.4 mmol/L; VBG HCO3 36 mmol/L (22-26); VBG pCO2 71 mmHg; VBG pH 7.32 (7.32-7.43); VBG pO2 35 mmHg
[2023-08-21 10:39] LABS: Venous Blood Gas Refer to POC result
[2023-08-21] MEDS: Nicotine 21 MG PATCH.TD24 TRANSDERMA (10:41)
--- NOTE | 2023-08-21 10:41 | PC.NURSE ---
pt brought in from triage d/t cold like sx and difficulty breathing. pt states being around sick contacts. pt verbalizes pain w/ inspiration, sputum production, and cough production x a few days. a&ox4 upon presentation. 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 pt on 85% on RA in triage. hx of copd. not O2 dependent baseline. pt placed on 3L via NC - went up to 96%. brought down to 2L via NC per dr. hancock order - pt then was at 84%. pt then placed back on 3L via NC - resting at 89%. no sob/wob noted. pt sitting in tripod position to promote patent airway. wheezing noted throughout upon auscultation. RT bedside assessing pt - pt now receiving albuterol treatment. 20gIV placed in the left AC - labs obtained/sent to lab. medication administered per provider order. plan of care ongoing. call carpio placed within reach.
--- NOTE | 2023-08-21 10:44 | PC.NURSE ---
xray bedside at this time.
[2023-08-21 10:45] LABS: Appearance Urine Clear; Color Urine Yellow; Glucose Urine UA Negative (Negative); Leukocyte Esterase Urine Negative (Negative); Nitrite Urine Negative (Negative); Specific Gravity - Urine <= 1.005 (1.005-1.025); UMIC TRIGGER UACC YES; Urine Blood Trace (Negative); Urine Ketones Negative (Negative); Urine Protein Trace mg/dL (Neg-Trace)
[2023-08-21 11:08] LABS: B Type Natriuretic Peptide 19 pg/mL (<100)
[2023-08-21 11:10] LABS: Alanine Aminotransferase 27 U/L (0-31); Albumin Level 4.2 g/dL (3.5-5.0); Alkaline Phosphatase 79 U/L (39-117); Anion Gap 8 (12-20); Aspartate Amino Transferase 31 U/L (5-31); Bilirubin Direct 0.1 mg/dL (0.0-0.5); Bilirubin Total 0.3 mg/dL (0.0-1.0); Blood Urea Nitrogen 7 mg/dL (9-16); Calcium 9.5 mg/dL (8.4-10.2); Carbon Dioxide 38 mmol/L (22-29); Chloride 99 mmol/L (96-108); Creatinine Clr Calc Pharmacy 73.6; Estimated Glomerular Filt Rate > 60; Glucose Random 92 mg/dL (60-115); Lipase 9 U/L (8-78); Potassium 4.4 mmol/L (3.3-5.1); Sodium 141 mmol/L (135-145); Total Protein 8.2 g/dL (6.5-8.0)
[2023-08-21 11:13] LABS: Troponin-I High Sensitivity < 2.7 ng/L (<3.5-17.0)
[2023-08-21 11:16] LABS: Influenza A PCR NEGATIVE (Negative); Influenza B PCR NEGATIVE (Negative); Resp Syncy Virus RNA Qual PCR NEGATIVE (Negative); SARS COV2 PCR INHOUSE NEGATIVE (Negative)
[2023-08-21] MEDS: levalbuterol HCL 1.25 MG/3 ML VIAL.NEB 2.5 MG INHALE (11:25)
[2023-08-21 11:28] LABS: Procalcitonin < 0.02 ng/mL
[2023-08-21 11:48] LABS: Bacteria Urine None Seen (None Seen); Hyaline Casts Urine 0-2 /LPF (0-2); RBC Urine 0-2 /HPF (0-2); Squamous Epithelial Cell Urine 0-2 /HPF (0-2); WBC Urine 0-5 /HPF (0-5)
--- NOTE | 2023-08-21 12:28 | P.HPHOSP_ITS ---
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 Patient reports symptoms began on Friday when she developed a ?cold. Had a sick friend visit her over the weekend with similar symptoms. On Friday patient developed congestion, rhinorrhea, cough productive of yellowish sputum, and generalized malaise. Symptoms worsened over the next few days until she developed significant SOB yesterday. Has also been experiencing chest tightness associated with breathing. Presented this morning since symptoms had worsened and patient's rescue inhaler was no longer providing significant relief. Reports quitting smoking last week, and that her COPD has been well controlled since previous exacerbation with hospitalization 2 years ago on 08/22/2021. No fever, chills, nausea, vomiting, or abd pain. In the ED pt was tachycardic up to 112, tachypneic up to 24, hypertensive up to 188/119, and hypoxic as low as 84% on RA. Labs were significant for bicarb 38, otherwise grossly unremarkable and WNL/baseline for patient. No leukocytosis. No significant electrolyte abnormalities. Renal and hepatic function WNL. Lactic acid WNL at 1.0. VBG pH 7.32. No UA negative for UTI. Tested negative for influenza, RSV, and COVID. CXR showed mild bronchial thickening with no acute intrathoracic disease. EKG demonstrated normal sinus rhythm with T-wave depressions in V1 and V2 but no evidence of significant ST elevations or depressions. Pt was treated with DuoNeb, Solu-Medrol, ceftriaxone, azithromycin, and Mag sulfate. Pt will be admitted to the hospital acute hypoxic respiratory failure in setting of COPD exacerbation. Review of Systems 2 Review of Systems: SOB, SEVERINO Pleuritic inspiratory chest tightness Productive cough Denies fever, chills, nausea, vomiting, abdominal pain PMF Medical History Abnormal EKG Acute respiratory failure COPD exacerbation Lung collapse COPD (chronic obstructive pulmonary disease) Family History Mother No problems noted. Surgical History H/O: History of tracheostomy Social History Household Members: None Housing: Apartment Do you presently have visiting nurse or other home services: No Alcohol intake: current Alcohol intake frequency: holidays/special occasions only Patient Tobacco Use Status: Former Tobacco user Quit Date: 08/08/2023 Tobacco use type: Cigarette Cigarette Packs Per Day: 1.5 Cigarettes Per Day: 30.0 Smoked in Last 30 Days: Yes Patient Interested in Nicotine Replacement: Yes Use of substances other than those prescribed or required for medical reasons: No Have you been hit, kicked, punched, or otherwise hurt by someone within the past year? 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 Meds Allergies Allergy/AdvReac Type Severity Reaction Status Date / Time No Known Allergies Allergy Verified 08/21/23 09:39 Active Medications: Current Medications Azithromycin 500 mg/ Sodium (Chloride) 250 mls @ 125 mls/hr IV ONCE ONE Stop: 08/21/23 14:07 Home Medications ?Medication ?Instructions ?Recorded ?Confirmed ?Last Taken ?Type albuterol sulfate 90 mcg/actuation 2 puff inhalation QID PRN dyspnea 08/22/21 08/21/23 08/21/23 History aerosol inhaler (Ventolin HFA) methadone 10 mg/mL oral concentrate 75 mg PO DAILY 08/22/21 08/21/23 08/21/23 History tiotropium bromide 18 mcg capsule 1 cap inhalation DAILY 08/22/21 08/21/23 08/21/23 History with inhalation device (Spiriva with HandiHaler) losartan 50 mg tablet 50 mg PO DAILY 07/11/23 08/21/23 08/21/23 History nicotine 21 mg/24 hr daily 1 patch transdermal DAILY 08/21/23 08/21/23 08/21/23 History transdermal patch Physical Exam 2 Vital Signs and Narrative: Vital Signs: Last Vital Signs Temp 98.2 F 08/21/23 10:34 Pulse 106 H 08/21/23 11:26 Resp 18 08/21/23 11:26 BP 138/79 08/21/23 10:34 Pulse Ox 91 L 08/21/23 10:36 O2 Del Method Nasal Cannula 08/21/23 10:36 O2 Flow Rate 3 08/21/23 10:36 BMI result Body Mass Index 27.7 Constitutional: Alert, in no acute distress. Mental Status: Oriented to person, place and time. Eyes: Pupils are equal, round, and reactive to light. Ear, Nose, and Throat: Oropharynx clear, mucous membranes moist. Ears and nose without deformities. Trachea midline. Respiratory: Significant expiratory wheezing and rhonchi. Cardiovascular: S1, S2, tachycardic. No murmurs, rubs, or gallops. Gastrointestinal: Abdomen soft, non-tender, non-distended. Normal bowel sounds. Neurologic: Cranial nerves II-XII are grossly intact bilaterally. No focal neurological deficits. Moves all extremities spontaneously. Skin: Warm, dry. Extremities: No edema. Psychiatric: Normal mood and affect. Results Labs 08/21/23 10:23 08/21/23 10:23 Labs: Laboratory Results - last 24 hr 08/21/23 08/21/23 10:23 10:31 MCV 91.2 MCH 30.4 MCHC 33.3 RDW 12.5 Plt Count 151 L MPV 9.1 L Immature Gran % (Auto) 0.3 Neut % (Auto) 62.4 Lymph % (Auto) 24.2 [place] % (Auto) 11.2 H Eos % (Auto) 1.6 Baso % (Auto) 0.3 Lymph # (Auto) 1.5 [place] # (Auto) 0.7 Eos # (Auto) 0.1 Baso # (Auto) 0.0 Abs Immat Gran (auto) 0.02 Absolute Neuts (auto) 3.8 Absolute Nucleated RBC 0.000 Nucleated RBC % (auto) 0.0 VBG pH 7.32 VBG pCO2 71 VBG pO2 35 VBG HCO3 36 H VBG O2 Saturation 55.0 VBG Base Excess 7.4 Anion Gap 8 L Estim Creat Clear Calc 73.6 Estimated GFR > 60 Random Glucose 92 Lactic Acid 1.0 Calcium 9.5 Magnesium 2.0 Total Bilirubin 0.3 Direct Bilirubin 0.1 AST 31 ALT 27 Alkaline Phosphatase 79 Troponin I High Sens < 2.7 B-Natriuretic Peptide 19 Total Protein 8.2 H Albumin 4.2 Lipase 9 Procalcitonin < 0.02 Urine Color Yellow Urine Appearance Clear Urine pH 6.0 Ur Specific [place] <= 1.005 Urine Protein Trace Urine Glucose (UA) Negative Urine Ketones Negative Urine Blood Trace H Urine Nitrite Negative Ur Leukocyte Esterase Negative Urine RBC 0-2 Urine WBC 0-5 Ur Squamous Epith Cells 0-2 Urine Bacteria None Seen Hyaline Casts 0-2 Influenza Type A (PCR) NEGATIVE Influenza Type B (PCR) NEGATIVE RSV RNA Qual (PCR) NEGATIVE SARS-CoV-2 RNA (RT-PCR) NEGATIVE Imaging Radiologist's Impressions: Impressions Chest X-Ray 08/21/23 10:50 IMPRESSION: Mild bronchial thickening. No acute intrathoracic disease. 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 Pt will be admitted to the hospital acute hypoxic respiratory failure in setting of COPD exacerbation. Acute hypoxic respiratory failure in the setting of COPD exacerbation Pain with SOB, SEVERINO, productive cough, pleuritic chest tightness Significant expiratory wheezing/rhonchi upon auscultation despite treatments in the ED, CXR negative for acute pulmonary process Patient does not meet sepsis criteria: Tachycardia secondary to albuterol use, not sepsis; patient afebrile, no leukocytosis, lactic acid WNL Will treat with Xopenex, Solu-Medrol, guaifenesin, loratadine Will empirically cover with ceftriaxone and azithromycin, started 08/21/2023 Titrate supplemental O2 >92, wean as tolerated Monitor respiratory status Follow cultures HTN Continue losartan Nicotine dependence Recently quit smoking last week Continue NRT Hx of IVDU Clean for past 7+ years Continue methadone Full Code Attending:?Dr. Weiss DVT Prophylaxis: Lovenox Pt will require a hospitalization of at least two nights for treatment of?acute hypoxic respiratory failure in the setting of COPD exacerbation. Patient will require hospitalization for treatment with IV steroids, breathing treatments, IV antibiotics, and supplemental oxygen. Quality Stroke Does the patient have a stroke diagnosis?: No VTE Prior VTE?: No VTE Risk Level:: Medical - moderate - high VTE Device Contraindication: Treatment Not Indicated VTE Drug Contraindication: N/A - Med Ordered
[2023-08-21] MEDS: Acetaminophen 325 MG TABLET 650 MG PO (12:59)
[2023-08-21] MEDS: Azithromycin 500 MG in 0.9 % Sodium Chloride 250 ML 125 MG IV (13:00)
--- NOTE | 2023-08-21 13:55 | PHA.MEDREC ---
Pharmacy Consult ? Medication Reconciliation Pharmacy has completed the medication reconciliation. Patient knew medications. Has take home bottles of methadone 75mg daily
[2023-08-21] MEDS: levalbuterol HCL 1.25 MG/3 ML VIAL.NEB INHALE ×2 (15:05→20:42)
[2023-08-21] MEDS: Enoxaparin Sodium 40 MG/0.4 ML SYRINGE SUBCUT (15:19)
[2023-08-21] MEDS: Loratadine 10 MG TABLET PO (15:19)
--- NOTE | 2023-08-21 15:21 | PC.NURSE ---
pt remains sinus tachy on the radiation monitor - HR between 110-120bpm. pt slightly hypotensive - otherwise vss. medication administered per provider order. no sob/wob noted. respirations remain even and unlabored. pt continues to wait for bed assignment at this time. plan of care ongoing. call carpio placed within reach.
[2023-08-21 16:03] LABS: Adenovirus PCR Not Detected (Not Detect.); Bordetella parapertussis PCR Not Detected (Not Detect.); Bordetella pertussis PCR Not Detected (Not Detect.); Chlamydia pneumoniae PCR Not Detected (Not Detect.); Coronavirus 229E PCR Not Detected (Not Detect.); Coronavirus HKU1 PCR Not Detected (Not Detect.); Coronavirus NL63 PCR Not Detected (Not Detect.); Coronavirus OC43 PCR Not Detected (Not Detect.); Human metapneumovirus PCR Detected (Not Detect.); Influenza A PCR Not Detected (Not Detect.); Influenza B PCR Not Detected (Not Detect.); Mycoplasma pneumoniae PCR Not Detected (Not Detect.); Parainfluenza 1 PCR Not Detected (Not Detect.); Parainfluenza 2 PCR Not Detected (Not Detect.); Parainfluenza 3 PCR Not Detected (Not Detect.); Parainfluenza 4 PCR Not Detected (Not Detect.); RSV PCR Not Detected (Not Detect.); Rhino/Enterovirus PCR Not Detected (Not Detect.)
[2023-08-21 16:23] LABS: SARS-CoV-2 PCR Not Detected (Not Detect.)
--- NOTE | 2023-08-21 19:02 | PC.NURSE ---
this RN obtained 12, 75mg bottles of methadone from pt. medication placed in verification envelope and given to pharmacy. methadone verification form also filled out/faxed to pharmacy/placed in pt's chart.
--- NOTE | 2023-08-21 19:15 | PC.NURSE ---
Assumed care of the pt at 1900. Pt resting comfortably in bed at this time. Pt complaining of being warm, ice back placed behind her neck. Pt is on 3 LPM O2, satting well. Pt has no other complaints at this time.
[2023-08-21] MEDS: traZODone HCL 25 MG HALFTAB PO (21:09)
[2023-08-21] MEDS: methylPREDNISolone Sod Succ 40 MG/ML VIAL IVPUSH (21:11)
--- NOTE | 2023-08-21 21:13 | HE.PHANOTE ---
METHADONE VERIFICATION Methadone dose: 75mg. Last dose on 08/21/23 per Mahin PLATT, @[facility]. Pt was sent home with take home bottles on 08/20/23 that should last until 09/02/23. Pt brought in bottles, in C2 safe in patient own med compartment.
[2023-08-22] VITALS (9 sets, daily range): BP systolic 109–152; BP diastolic 55–77; PULSE 75–106; RESP 16–18; TEMP 36–37.5; O2SAT 92–97
[2023-08-22] MEDS: Albuterol Sulfate 90 MCG 8 GM INHALER 2 PUFF INHALE (06:18)
--- NOTE | 2023-08-22 06:18 | PC.NURSE ---
Pt feels tight in her chest and neck. PRN inhaler given per JUL.
[2023-08-22] MEDS: Tiotropium Bromide 2.5 mcg 1 PUFF/2.5 MCG MIST.INHAL 2 PUFF INHALE (07:40)
[2023-08-22] MEDS: levalbuterol HCL 1.25 MG/3 ML VIAL.NEB INHALE ×3 (07:40→19:46)
[2023-08-22] MEDS: Nicotine 21 MG PATCH.TD24 TRANSDERMA (08:51)
[2023-08-22] MEDS: Losartan Potassium 50 MG TABLET PO (08:52)
[2023-08-22] MEDS: Loratadine 10 MG TABLET PO (08:54)
[2023-08-22] MEDS: methADONE HCl 20 MG/2 ML ORAL.CONC 75 MG PO (08:55)
[2023-08-22] MEDS: cefTRIAXone sodium 1 GM in 0.9 % Sodium Chloride 50 ML IV (08:55)
[2023-08-22] MEDS: methylPREDNISolone Sod Succ 40 MG/ML VIAL IVPUSH ×2 (09:06→20:34)
[2023-08-22] MEDS: Baclofen 10 MG TABLET PO (09:06)
[2023-08-22] MEDS: 0.9 % Sodium Chloride Flush 3 ML SYRINGE IVFLUSH ×2 (09:06→20:37)
[2023-08-22] MEDS: Azithromycin 500 MG in 0.9 % Sodium Chloride 250 ML 125 MG IV (11:46)
--- NOTE | 2023-08-22 12:53 | MHC.CM.PN ---
CM MET WITH PT AT BEDSIDE. PT LIVES ALONE, EMPLOYED AND INDEPENDENT. PT GOES TO [facility] FOR METHADONE. PATIENT DECLINES HCP AT THIS TIME. PCP DR. SOLITARIO DP: HOME WITH NO SERVICES ANTICIPATED. PT HAS CAR IN LOT. CM WILL CONTINUE TO FOLLOW FOR ANY CHANGE TO DC PLAN/NEEDS.
--- NOTE | 2023-08-22 15:21 | P.PNIM_ITS ---
Subjective Subjective Date of Service: 08/22/23 Interval History: copd excerebation ,pneumonia Review of Systems sob seems similar Physical Exam 2 Vital Signs: Vital Signs: Last Vital Signs Temp 99.5 F 08/22/23 10:22 Pulse 101 H 08/22/23 11:17 Resp 17 08/22/23 11:17 BP 152/77 H 08/22/23 10:22 Pulse Ox 94 08/22/23 10:22 O2 Del Method Nasal Cannula 08/22/23 10:22 O2 Flow Rate 2.0 08/22/23 10:22 BMI result Body Mass Index 27.7 Appearance: Alert.? Oriented X3.? cvs: [id number], [id number] , no murmur res: clear to auscultation ,no rhonchii or wheezing abd: no rebound or guarding ,nt, bs present. ext pulses present , no cyanosis . neuro: axo3 , nonfocal. Objective Data Active Medications Acetaminophen (Acetaminophen 325 Mg Tablet) 650 mg PO Q6H PRN PRN Reason: Pain, Mild (Pain Scale 1-3) Albuterol Sulfate (Albuterol Sulfate 90 Mcg 8 Gm Inhaler) 2 puff INHALE QID PRN PRN Reason: dyspnea Last Admin: 08/22/23 06:18 Dose: 2 puff Documented By: KYLE Docusate Sodium (Docusate Sodium 100 Mg Capsule) 100 mg PO DAILY PRN PRN Reason: Constipation Enoxaparin Sodium (Enoxaparin Sodium 40 Mg/0.4 Ml Syringe) 40 mg SUBCUT Q24H [facility] Last Admin: 08/22/23 13:50 Dose: Not Given Documented By: LESLIE Non-Admin Reason: Patient Refused Guaifenesin (Guaifenesin 200 Mg/10 Ml 10 Ml Liquid) 10 ml PO Q4H PRN PRN Reason: Cough Guaifenesin/Dextromethorphan (Guaifenesin Dm 200/20/10 Ml 10 Ml Syrup) 10 ml PO Q6H PRN PRN Reason: Cough Azithromycin 500 mg/ Sodium (Chloride) 250 mls @ 125 mls/hr IV Q24H [facility] Last Infusion: 08/22/23 13:50 Dose: Infused Documented By: LESLIE Ceftriaxone Sodium 1 gm/ (Sodium Chloride) 50 mls @ 100 mls/hr IV Q24H [facility] Last Infusion: 08/22/23 09:30 Dose: Infused Documented By: LATONIA Levalbuterol HCl (Levalbuterol Hcl 1.25 Mg/3 Ml Vial.Neb) 1.25 mg INHALE RQ4H WHILE AWAKE [facility] Last Admin: 08/22/23 15:19 Dose: Not Given Documented By: NAOMY Non-Admin Reason: Patient Asleep Loratadine (Loratadine 10 Mg Tablet) 10 mg PO DAILY [facility] Last Admin: 08/22/23 08:54 Dose: 10 mg Documented By: LATONIA Losartan Potassium (Losartan Potassium 50 Mg Tablet) 50 mg PO DAILY [facility]; Protocol Last Admin: 08/22/23 08:52 Dose: 50 mg Documented By: LATONIA Melatonin (Melatonin 3 Mg Tablet) 6 mg PO BEDTIME PRN PRN Reason: Insomnia Methadone HCl (Methadone Hcl 20 Mg/2 Ml Oral.Conc) 75 mg PO DAILY [facility] Last Admin: 08/22/23 08:55 Dose: 75 mg Documented By: LATONIA Methylprednisolone Sodium Succinate (Methylprednisolone Sod Succ 40 Mg/Ml Vial) 40 mg IVPUSH Q12H [facility] Last Admin: 08/22/23 09:06 Dose: 40 mg Documented By: LATONIA Nicotine (Nicotine 21 Mg Patch.Td24) 21 mg TRANSDERMA DAILY [facility] Last Admin: 08/22/23 08:51 Dose: 21 mg Documented By: LATONIA Sodium Chloride (0.9 % Sodium Chloride Flush 3 Ml Syringe) 3 ml IVFLUSH QSHIFT [facility] Last Admin: 08/22/23 15:21 Dose: Not Given Documented By: LESLIE Non-Admin Reason: Previously Administered Tiotropium [place] (Tiotropium [place] 2.5 Mcg 1 Puff/2.5 Mcg Mist.Inhal) 2 puff INHALE RDAILY [facility] Last Admin: 08/22/23 07:40 Dose: 2 puff Documented By: CLEOPATRA Trazodone HCl (Trazodone Hcl 25 Mg Halftab) 25 mg PO BEDTIME PRN PRN Reason: Insomnia Last Admin: 08/21/23 21:09 Dose: 25 mg Documented By: KYLE Labs 08/21/23 10:23 08/21/23 10:23 Labs: Laboratory Results - last 24 hr 08/21/23 14:43 Respiratory Panel Basurto See Note Adenovirus (Rapid PCR) Not Detected B.pert (TEM-PCR) Not Detected B.parapertussis DNA PCR Not Detected C. pneumoniae DNA (PCR) Not Detected Coronavirus OC43 (PCR) Not Detected Coronavirus HKU1 (PCR) Not Detected Coronavirus 229E (PCR) Not Detected Coronavirus NL63 (PCR) Not Detected Human Metapneumovir PCR Detected A Influenza A (RT-PCR) Not Detected Influenza B (RT-PCR) Not Detected M. pneumoniae (PCR) Not Detected Parainfluenza 1 (PCR) Not Detected Parainfluenza 2 (PCR) Not Detected Parainfluenza 3 (PCR) Not Detected Parainfluenza 4 (PCR) Not Detected RSV (PCR) Not Detected Entero/Rhino (PCR) Not Detected SARS-CoV-2 RNA (RT-PCR) Not Detected Microbiology Microbiology Results: Microbiology 08/21/23 10:39 Blood Culture - Preliminary Blood - Venous No growth after 24 hours. 08/21/23 10:23 Blood Culture - Preliminary Blood - Venous No growth after 24 hours. Assessment and Plan (1) Acute hypoxic respiratory failure: Status: Acute (2) Acute exacerbation of chronic obstructive airways disease: Status: Acute Plan 52-year-old female with a PMH significant for?COPD, HTN, prior IVDU on methadone (clean for >7 years), and hx of pneumococcal pneumonia complicated by collapsed lung and tracheotomy who presents to the ED for evaluation of increasing SOB and cough with difficulty breathing. Pt will be admitted to the hospital acute hypoxic respiratory failure in setting of COPD exacerbation. Acute hypoxic respiratory failure in the setting of COPD exacerbation Pain with SOB, SEVERINO, productive cough, pleuritic chest tightness Significant expiratory wheezing/rhonchi upon auscultation despite treatments in the ED, CXR negative for acute pulmonary process plan: continue Xopenex, Solu-Medrol, guaifenesin, loratadine,ceftriaxone and azithromycin, started 08/21/2023 Titrate supplemental O2 >92, wean as tolerated,Monitor respiratory status,Follow cultures HTN Continue losartan Nicotine dependence Recently quit smoking last week Continue NRT Hx of IVDU Clean for past 7+ years Continue methadone Full Code DVT Prophylaxis: Lovenox ongoing hospitalization need for 48-72hr treatment of?acute hypoxic respiratory failure in the setting of COPD exacerbation. Patient will require hospitalization for treatment with IV steroids, breathing treatments, IV antibiotics, and supplemental oxygen, monitering for respiratory status. Quality Stroke Does the patient have a stroke diagnosis?: No VTE Prior VTE?: No VTE Risk Level:: Medical - moderate - high VTE Device Contraindication: Treatment Not Indicated VTE Drug Contraindication: N/A - Med Ordered
[2023-08-22] MEDS: guaiFENesin 200 MG/10 ML 10 ML LIQUID PO (20:34)
[2023-08-22] MEDS: traZODone HCL 25 MG HALFTAB PO (20:34)
[2023-08-23] VITALS (9 sets, daily range): BP systolic 105–124; BP diastolic 63–70; PULSE 68–84; RESP 12–20; TEMP 36–36.4; O2SAT 88–96
[2023-08-23] MEDS: Tiotropium Bromide 2.5 mcg 1 PUFF/2.5 MCG MIST.INHAL 2 PUFF INHALE (08:37)
[2023-08-23] MEDS: levalbuterol HCL 1.25 MG/3 ML VIAL.NEB INHALE ×4 (08:37→20:37)
[2023-08-23] MEDS: acetaZOLAMIDE 250 MG TABLET PO (09:18)
[2023-08-23] MEDS: methADONE HCl 20 MG/2 ML ORAL.CONC 75 MG PO (09:20)
[2023-08-23] MEDS: Loratadine 10 MG TABLET PO (09:20)
[2023-08-23] MEDS: Losartan Potassium 50 MG TABLET PO (09:20)
[2023-08-23] MEDS: cefTRIAXone sodium 1 GM in 0.9 % Sodium Chloride 50 ML IV (09:21)
[2023-08-23] MEDS: methylPREDNISolone Sod Succ 40 MG/ML VIAL IVPUSH ×2 (09:21→20:00)
[2023-08-23] MEDS: 0.9 % Sodium Chloride Flush 3 ML SYRINGE IVFLUSH ×2 (09:21→17:17)
[2023-08-23] MEDS: Azithromycin 500 MG in 0.9 % Sodium Chloride 250 ML 125 MG IV (13:07)
--- NOTE | 2023-08-23 15:08 | P.PNIM_ITS ---
Subjective Subjective Date of Service: 08/23/23 Interval History: copd excerebation ,pneumonia Review of Systems sob seems similar no fevers Physical Exam 2 Vital Signs: Vital Signs: Last Vital Signs Temp 97.5 F 08/23/23 07:37 Pulse 79 08/23/23 11:55 Resp 18 08/23/23 11:55 BP 124/63 08/23/23 09:20 Pulse Ox 93 08/23/23 07:37 O2 Del Method Nasal Cannula 08/23/23 07:37 O2 Flow Rate 2 08/23/23 07:37 BMI result Body Mass Index 27.7 Appearance: Alert.? Oriented X3.? cvs: rrr, [id number] , no murmur res: clear to auscultation ,no rhonchii or wheezing abd: no rebound or guarding ,nt, bs present. ext pulses present , no cyanosis . neuro: axo3 , nonfocal. Objective Data Active Medications Acetaminophen (Acetaminophen 325 Mg Tablet) 650 mg PO Q6H PRN PRN Reason: Pain, Mild (Pain Scale 1-3) Albuterol Sulfate (Albuterol Sulfate 90 Mcg 8 Gm Inhaler) 2 puff INHALE QID PRN PRN Reason: dyspnea Last Admin: 08/22/23 06:18 Dose: 2 puff Documented By: KYLE Docusate Sodium (Docusate Sodium 100 Mg Capsule) 100 mg PO DAILY PRN PRN Reason: Constipation Enoxaparin Sodium (Enoxaparin Sodium 40 Mg/0.4 Ml Syringe) 40 mg SUBCUT Q24H [facility] Last Admin: 08/23/23 13:08 Dose: Not Given Documented By: BRONSON Non-Admin Reason: Patient Refused Guaifenesin (Guaifenesin 200 Mg/10 Ml 10 Ml Liquid) 10 ml PO Q4H PRN PRN Reason: Cough Last Admin: 08/22/23 20:34 Dose: 10 ml Documented By: MIKE Guaifenesin/Dextromethorphan (Guaifenesin Dm 200/20/10 Ml 10 Ml Syrup) 10 ml PO Q6H PRN PRN Reason: Cough Azithromycin 500 mg/ Sodium (Chloride) 250 mls @ 125 mls/hr IV Q24H [facility] Last Admin: 08/23/23 13:07 Dose: 125 mls/hr Documented By: HO.COTEMA Ceftriaxone Sodium 1 gm/ (Sodium Chloride) 50 mls @ 100 mls/hr IV Q24H [facility] Last Infusion: 08/23/23 10:03 Dose: Infused Documented By: COTEMA Levalbuterol HCl (Levalbuterol Hcl 1.25 Mg/3 Ml Vial.Neb) 1.25 mg INHALE RQ4H WHILE AWAKE [facility] Last Admin: 08/23/23 11:55 Dose: 1.25 mg Documented By: JHONY Loratadine (Loratadine 10 Mg Tablet) 10 mg PO DAILY [facility] Last Admin: 08/23/23 09:20 Dose: 10 mg Documented By: COTEMA Losartan Potassium (Losartan Potassium 50 Mg Tablet) 50 mg PO DAILY [facility]; Protocol Last Admin: 08/23/23 09:20 Dose: 50 mg Documented By: COTWILLIAM Melatonin (Melatonin 3 Mg Tablet) 6 mg PO BEDTIME PRN PRN Reason: Insomnia Methadone HCl (Methadone Hcl 20 Mg/2 Ml Oral.Conc) 75 mg PO DAILY [facility] Last Admin: 08/23/23 09:20 Dose: 75 mg Documented By: COTEMA Methylprednisolone Sodium Succinate (Methylprednisolone Sod Succ 40 Mg/Ml Vial) 40 mg IVPUSH Q12H [facility] Last Admin: 08/23/23 09:21 Dose: 40 mg Documented By: RAFFYEMA Nicotine (Nicotine 21 Mg Patch.Td24) 21 mg TRANSDERMA DAILY [facility] Last Admin: 08/23/23 09:20 Dose: Not Given Documented By: COTEMA Non-Admin Reason: Patient Refused Sodium Chloride (0.9 % Sodium Chloride Flush 3 Ml Syringe) 3 ml IVFLUSH QSHIFT [facility] Last Admin: 08/23/23 09:21 Dose: 3 ml Documented By: BRONSON Tiotropium [place] (Tiotropium [place] 2.5 Mcg 1 Puff/2.5 Mcg Mist.Inhal) 2 puff INHALE RDAILY [facility] Last Admin: 08/23/23 08:37 Dose: 2 puff Documented By: JHONY Trazodone HCl (Trazodone Hcl 25 Mg Halftab) 25 mg PO BEDTIME PRN PRN Reason: Insomnia Last Admin: 08/22/23 20:34 Dose: 25 mg Documented By: LYSZ Labs 08/21/23 10:23 08/21/23 10:23 Microbiology Microbiology Results: Microbiology 08/21/23 10:39 Blood Culture - Preliminary Blood - Venous No growth after 48 hours. 08/21/23 10:23 Blood Culture - Preliminary Blood - Venous No growth after 48 hours. 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 Pt will be admitted to the hospital acute hypoxic respiratory failure in setting of COPD exacerbation. Acute hypoxic respiratory failure in the setting of COPD exacerbation Pain with SOB, SEVERINO, productive cough, pleuritic chest tightness Significant expiratory wheezing/rhonchi upon auscultation despite treatments in the ED, CXR negative for acute pulmonary process plan: continue Xopenex, Solu-Medrol, guaifenesin, loratadine,ceftriaxone and azithromycin, started 08/21/2023 Titrate supplemental O2 >92, wean as tolerated,Monitor respiratory status,Follow cultures HTN Continue losartan Nicotine dependence Recently quit smoking last week Continue NRT Hx of IVDU Clean for past 7+ years Continue methadone Full Code DVT Prophylaxis: Lovenox ongoing hospitalization need for treatment of?acute hypoxic respiratory failure in the setting of COPD exacerbation. Patient will require hospitalization for treatment with IV steroids, breathing treatments, IV antibiotics, and supplemental oxygen, monitering for respiratory status. Quality Stroke Does the patient have a stroke diagnosis?: No VTE Prior VTE?: No VTE Risk Level:: Medical - moderate - high VTE Device Contraindication: Treatment Not Indicated VTE Drug Contraindication: N/A - Med Ordered
[2023-08-23] MEDS: guaiFENesin 200 MG/10 ML 10 ML LIQUID PO (17:22)
[2023-08-23] MEDS: traZODone HCL 25 MG HALFTAB PO (20:01)
--- NOTE | 2023-08-23 22:36 | PC.NURSE ---
Robutussin was administered for c/o cough,patient reports good effect from it
[2023-08-24] MEDS: 0.9 % Sodium Chloride Flush 3 ML SYRINGE IVFLUSH ×2 (00:55→08:52)
[2023-08-24 04:00] VITALS: BP 115/58; PULSE 66; RESP 16; TEMP 36; O2SAT 96
[2023-08-24] MEDS: guaiFENesin 200 MG/10 ML 10 ML LIQUID PO (06:06)
[2023-08-24 07:14] VITALS: BP 108/75; PULSE 70; RESP 14; TEMP 36.1; O2SAT 97
[2023-08-24] MEDS: levalbuterol HCL 1.25 MG/3 ML VIAL.NEB INHALE ×2 (07:58→11:29)
[2023-08-24] MEDS: Tiotropium Bromide 2.5 mcg 1 PUFF/2.5 MCG MIST.INHAL 2 PUFF INHALE (07:58)
[2023-08-24 07:59] VITALS: PULSE 72; RESP 18; O2SAT 93
[2023-08-24 08:51] VITALS: BP 108/75
[2023-08-24] MEDS: Losartan Potassium 50 MG TABLET PO (08:51)
[2023-08-24] MEDS: Loratadine 10 MG TABLET PO (08:52)
[2023-08-24] MEDS: methADONE HCl 20 MG/2 ML ORAL.CONC 75 MG PO (08:52)
[2023-08-24] MEDS: methylPREDNISolone Sod Succ 40 MG/ML VIAL IVPUSH (10:00)
[2023-08-24] MEDS: cefTRIAXone sodium 1 GM in 0.9 % Sodium Chloride 50 ML IV (10:00)
[2023-08-24 10:52] VITALS: PULSE 84; PULSE 90; O2SAT 92; O2SAT 97
--- NOTE | 2023-08-24 10:54 | P.DS_ITS ---
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 Patient reports symptoms began on Friday when she developed a ?cold. Had a sick friend visit her over the weekend with similar symptoms. On Friday patient developed congestion, rhinorrhea, cough productive of yellowish sputum, and generalized malaise. Symptoms worsened over the next few days until she developed significant SOB yesterday. Has also been experiencing chest tightness associated with breathing. Presented this morning since symptoms had worsened and patient's rescue inhaler was no longer providing significant relief. Reports quitting smoking last week, and that her COPD has been well controlled since previous exacerbation with hospitalization 2 years ago on 08/22/2021. No fever, chills, nausea, vomiting, or abd pain. In the ED pt was tachycardic up to 112, tachypneic up to 24, hypertensive up to 188/119, and hypoxic as low as 84% on RA. Labs were significant for bicarb 38, otherwise grossly unremarkable and WNL/baseline for patient. No leukocytosis. No significant electrolyte abnormalities. Renal and hepatic function WNL. Lactic acid WNL at 1.0. VBG pH 7.32. No UA negative for UTI. Tested negative for influenza, RSV, and COVID. CXR showed mild bronchial thickening with no acute intrathoracic disease. EKG demonstrated normal sinus rhythm with T-wave depressions in V1 and V2 but no evidence of significant ST elevations or depressions. Pt was treated with DuoNeb, Solu-Medrol, ceftriaxone, azithromycin, and Mag sulfate. Pt will be admitted to the hospital acute hypoxic respiratory failure in setting of COPD exacerbation. Hospital course: Patient was admitted for acute hypoxemic respiratory failure secondary to COPD exacerbation-chest x-ray negative, positive for human metapneumovirus URI,blood cultures sent - started on nebs, steroids, antibiotics, oxygen seems to be improved, cough medication -seems to be improved, no shortness of breath curren tly,blood cultures negative@48hrs, patient did not qualify ,hence does not need home oxygen. Patient will be going home with p.o. prednisone 40 mg for 4 days, doxycycline 100 mg p.o. b.i.d. for 5 days, cough syrup p.r.n. plan: p.o. prednisone 40 mg for 4 days, doxycycline 100 mg p.o. b.i.d. for 5 days, cough syrup p.r.n. Above management discussed with the patient in detail length she understand and in agreement with the above plan, time spent 40 minutes. Time Attestation Total time managing care of this patient today: 35 mintues. Discharge Coordination Time (in mins): 35 min Quality: Safe Use of Opioids Does Pt have an Active Cancer Diagnosis on the Problem List?: No Quality: Stroke Does the patient have a stroke diagnosis?: No Physical Exam Vital Signs: Vital Signs: Last Vital Signs Temp 97.0 F 08/24/23 07:14 Pulse 72 08/24/23 07:59 Resp 18 08/24/23 07:59 BP 108/75 08/24/23 08:51 Pulse Ox 97 08/24/23 07:14 O2 Del Method Nasal Cannula 08/24/23 07:14 O2 Flow Rate 2 08/24/23 07:14 BMI result Body Mass Index 27.7 Appearance: Alert.? Oriented X3.. cvs: rrr, [id number] , no murmur res: clear to auscultation ,no rhonchii or wheezing abd: no rebound or guarding ,nt, bs present. ext pulses present , no cyanosis. neuro: axo3 , nonfocal. DS: Data Data Completed and Pending Labs on day of discharge: Preliminary micro results at discharge 08/21/23 10:39 Blood Culture - Preliminary Blood - Venous No growth after 48 hours. 08/21/23 10:23 Blood Culture - Preliminary Blood - Venous No growth after 48 hours. Imaging Chest x-ray: Radiologist's impression: ITS Impressions Chest X-Ray 08/21/23 10:50 IMPRESSION: Mild bronchial thickening. No acute intrathoracic disease. Discharge Plan Discharge Anticipated Discharge Date/Time: 08/24/23 10:41 Patient Disposition: Home, Self-Care Discharge Diagnosis: Acute hypoxemic respiratory failure secondary to copd ,possible mild acute bronchitis Referrals: Gilbert Traore MD [Primary Care Provider] - 1 Week Discharge Medications: New loratadine 10 mg Tablet 10 mg PO DAILY Qty: 30 0RF doxycycline monohydrate 100 mg Capsule 100 mg PO Q12H Qty: 10 0RF prednisone 20 mg Tablet 40 mg PO DAILY Qty: 8 0RF guaifenesin 100 mg/5 mL Liquid 100 mg PO Q4H PRN (Reason: Cough) Qty: 250 0RF Continued methadone 10 mg/mL Concentrate 75 mg PO DAILY albuterol sulfate [Ventolin HFA] 90 mcg/actuation HFA aerosol inhaler 2 puff inhalation QID PRN (Reason: dyspnea) tiotropium bromide [Spiriva with HandiHaler] 18 mcg capsule, w/inhalation device 1 cap inhalation DAILY nicotine 21 mg/24 hr Patch 24 Hour 1 patch TRANSDERMAL DAILY losartan 50 mg tablet 50 mg PO DAILY Discharge Orders: Discharge Order (Routine); Ordered 08/24/23 Ordered By: Irineo Weiss Diet: Advance to usual diet Activity on Discharge: As tolerated Stand Alone Forms: Patient Portal Discharge page Print Language: Burundian Care Plan Goals: Patient was admitted for acute hypoxemic respiratory failure secondary to COPD exacerbation-chest x-ray negative, positive for human metapneumovirus URI,blood cultures sent - started on nebs, steroids, antibiotics, oxygen seems to be improved, cough medication -seems to be improved, no shortness of breath currently,blood cultures negative@48hrs, home oxygen evaluation done -patient did not qualify ,hence does not need home oxygen. Patient will be going home with p.o. prednisone 40 mg for 4 days, doxycycline 100 mg p.o. b.i.d. for 5 days, cough syrup p.r.n. Health Concerns: As above. Plan of Treatment: As above. Assessment: As above.
[2023-08-24] MEDS: Doxycycline Monohydrate 100 MG CAPSULE PO (11:26)
[2023-08-24 11:29] VITALS: PULSE 75; RESP 18; O2SAT 95
--- NOTE | 2023-08-24 11:35 | MHC.CM.PN ---
HOME SELF CARE RN AWARE OF PLAN PATIENT HAS TRANSPORT ARRANGED
== END 2023-08-24 13:02 | disposition home or self-care (01) | DRG 140 ==
LOC: HO.ED 12:08 → HO.EDOVER 14:23 → HO.S3 08-22 07:48
PROVIDERS: Admitting Provider Student in an Organized Health Care Education/Training Program; Emergency Provider Emergency Medicine; PCP Internal Medicine; Visit Provider Internal Medicine
DX: J44.1 Chronic obstructive pulmonary disease with (acute) exacerbation (principal); J96.01 Acute respiratory failure with hypoxia; J44.0 Chronic obstructive pulmonary disease with (acute) lower respiratory infection; B97.81 Human metapneumovirus as the cause of diseases classified elsewhere; J20.9 Acute bronchitis, unspecified; I10 Essential (primary) hypertension; F11.20 Opioid dependence, uncomplicated; Z20.822 Contact with and (suspected) exposure to COVID-19; Z87.891 Personal history of nicotine dependence; Z79.899 Other long term (current) drug therapy
CPT/HCPCS: 0241U; 36415; 71045; 80048; 80076; 81001; 82803; 83605; 83690; 83735; 83880; 84145; 84484; 85025; 87040; 87633; 93005; 94664; 99285; J0456; J0696; J1650; J2919; J3475

== ENCOUNTER → 2023-08-21 10:01 | Outpatient (BNV) | payer OTHER, SELFPAY | PROVIDERS: Admitting Provider Student in an Organized Health Care Education/Training Program; Emergency Provider Emergency Medicine; PCP Internal Medicine; Visit Provider Internal Medicine | DX: R06.09 Other forms of dyspnea (principal) | CPT/HCPCS: 93010 ==

== ENCOUNTER → 2023-08-21 14:13 | Outpatient (BNV) | payer OTHER, SELFPAY | PROVIDERS: Admitting Provider Student in an Organized Health Care Education/Training Program; Emergency Provider Emergency Medicine; PCP Internal Medicine; Visit Provider Student in an Organized Health Care Education/Training Program | DX: J44.9 Chronic obstructive pulmonary disease, unspecified (principal); J96.01 Acute respiratory failure with hypoxia | CPT/HCPCS: 99223; 99232; 99239 ==

== ENCOUNTER 2023-10-14 14:33 | Outpatient (REF) | payer OTHER, SELFPAY ==
[2023-10-20 14:28] LABS: HPV 16 RNA NOT DETECTED (NOT DETECTED); HPV mRNA E6/E7 rflx Detected (Not Detected)
== END 2023-10-14 14:34 | disposition home or self-care (01) ==
LOC: HO.HHCLNP 14:33
PROVIDERS: Visit Provider Family Medicine
DX: Z12.4 Encounter for screening for malignant neoplasm of cervix (principal); Z11.51 Encounter for screening for human papillomavirus (HPV)
CPT/HCPCS: 87624; 87625; 88142

== ENCOUNTER 2024-04-15 09:17 | Outpatient (REF) | payer OTHER, SELFPAY ==
[2024-04-15 14:18] LABS: MANUAL DIFF FLAG NO
[2024-04-15 14:27] LABS: Basophils Percent Auto 0.4 % (0-2); Eosinophils Absolute Auto 0.2 X10*3/uL (0.0-0.4); Hemoglobin 14.2 g/dl (12.0-16.0); Imm Gran Abs Auto 0.01 X10*3/uL (0.00-0.03); Imm Gran Pct Auto 0.2 % (0.0-0.4); Lymphocytes Percent Auto 36.9 % (20-40); Mean Corpuscular HGB Conc 31.6 g/dl (31.0-35.0); Mean Corpuscular Hemoglobin 29.2 pg (27.0-33.0); Mean Corpuscular Volume 92.6 fL (80.0-98.0); Monocytes Absolute Auto 0.5 X10*3/uL (0.1-1.2); Monocytes Percent Auto 9.2 % (2-11); Neutrophils Absolute Auto 2.7 x10*3/uL (2.0-8.3); Neutrophils Percent Auto 49.3 % (45-73); Platelet Count 184 X10*3/uL (160-400); Red Blood Count 4.86 X10*6/uL (4.20-5.50); Red Cell Distribution Width 13.3 % (11.0-16.0); White Blood Count 5.5 X10*3/uL (4.8-10.8)
[2024-04-15 14:32] LABS: Estimated Average Glucose 108 mg/dL; Hemoglobin A1C 129.3383 umol/L; Hemoglobin A1c % 5.4 % (<6.0); Total Hemoglobin (HGBA1C) 3598.3327 umol/L
[2024-04-15 14:48] LABS: Alanine Aminotransferase 21 U/L (0-31); Albumin Level 3.9 g/dL (3.5-5.0); Alkaline Phosphatase 68 U/L (39-117); Anion Gap 11 (12-20); Aspartate Amino Transferase 31 U/L (5-31); Bilirubin Total 0.3 mg/dL (0.0-1.0); Blood Urea Nitrogen 10 mg/dL (9-16); Calcium 9.4 mg/dL (8.4-10.2); Carbon Dioxide 34 mmol/L (22-29); Chloride 104 mmol/L (96-108); Cholesterol 221 mg/dL (<200); Estimated Glomerular Filt Rate > 60; Glucose Random 77 mg/dL (60-115); HDL Cholesterol 42 mg/dL (>40); LDL Cholesterol Calculated 136 mg/dL (<100); Potassium 4.5 mmol/L (3.3-5.1); Sodium 144 mmol/L (135-145); Total Protein 7.7 g/dL (6.5-8.0); Triglycerides 215 mg/dL (<150)
[2024-04-15 15:05] LABS: TSH reflex Free T4 2.74 uIU/mL (0.32-4.0)
== END 2024-04-15 09:18 | disposition home or self-care (01) ==
LOC: HO.CHCLDS 09:17
PROVIDERS: Visit Provider Internal Medicine
DX: Z13.1 Encounter for screening for diabetes mellitus (principal); I10 Essential (primary) hypertension
CPT/HCPCS: 36415; 80053; 80061; 83036; 84443; 85025

== ENCOUNTER 2024-05-10 08:16 | Outpatient (AMB) | payer OTHER, SELFPAY ==
--- NOTE | 2024-05-10 08:20 | MHC.OFFVIS ---
Vital Signs 05/10/24 08:31 Height 4 ft 11 in Weight 156 lb BMI 31.5 BP 133/56 L Blood Pressure Location Rt brachial Position Sitting Pulse 88 Intake Visit Reasons: Epidermoid cyst Intake Note: Patient referred for a cyst on LUQ X1yr. Patient c/o: growth enlarging, oozing, irritated with bra strap. Today feels itchy, minor oozing. Took doxycycline for 1wk. Ichthyology Teacher Required: No Accompanied by: Self / Same As Patient Allergies No Known Allergies Allergy (Verified 05/10/24 08:28) HPI Comments Details: Patient presents for evaluation of infected sebaceous cyst in the inframammary area of the left chest. She is had longstanding sebaceous cyst here for many years time. Over the last few weeks became red, hot, swollen, and then spontaneously drained purulent material. She was given antibiotics by her medical doctor. She now presents here for further evaluation. She is never had such issues before. Chart was reviewed and patient evaluate [facility] Medical History Abnormal EKG Acute respiratory failure COPD exacerbation Lung collapse COPD (chronic obstructive pulmonary disease) Surgical History H/O: History of tracheostomy Family History Mother No problems noted. 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 On pressure, residual sebum was drained. No obvious purulence demonstrated although the surrounding skin is erythematous consistent with a prior infection. Patient also showed me photos of the consistent with it was infected with abscess drainage. Currently this is much improved Assessment & Plan Assessment & Plan (1) Infected sebaceous cyst: Code(s): L72.3 - Sebaceous cyst; L08.9 - Local infection of the skin and subcutaneous tissue, unspecified Category: Surgical Plan Current plan is continue local wound therapy. Because of the persistent inflammation, told the patient would not be in her best interest to excised this sebaceous cysts at this time because of the potential for wound infection. She will see me in a few weeks' time for follow-up. All questions answered. If the wound is clean at that time, office excisional will be undertaken. Coding Level of Care Code New Pt Level 4 (52497) Diagnoses Infected sebaceous cyst L72.3; L08.9
[2024-05-10 08:31] VITALS: BP 133/56; PULSE 88; BMI 31.5
== END 2024-05-10 08:38 | disposition home or self-care (01) ==
PROVIDERS: PCP Internal Medicine; Referring Provider Internal Medicine; Visit Provider Surgery
DX: L72.3 Sebaceous cyst (principal); L08.9 Local infection of the skin and subcutaneous tissue, unspecified
CPT/HCPCS: 99204

== ENCOUNTER → 2024-05-10 08:16 | Outpatient (BNVA) | payer OTHER, SELFPAY | PROVIDERS: PCP Internal Medicine; Referring Provider Internal Medicine; Visit Provider Surgery ==

== ENCOUNTER 2024-05-24 10:25 | Outpatient (AMB) | payer OTHER, SELFPAY ==
[2024-05-24 10:27] VITALS: BMI 31.5
--- NOTE | 2024-05-24 10:27 | A.OFFVIS_ITS ---
Vital Signs 05/24/24 10:27 Height 4 ft 11 in Weight 156 lb BMI 31.5 Intake Visit Reasons: EXC~ EIC LUQ Intake Note: Patient in office today for excision of EIC LUQ. Patient c/o: Denies pain, oozing from cyst. Post Doctoral Researcher Required: No Accompanied by: Self / Same As Patient Allergies No Known Allergies Allergy (Verified 05/24/24 10:29) Medication List - Last Reconciled 05/24/24 by Naresh Morrow MD albuterol sulfate 90 mcg/actuation (Ventolin HFA) 2 puffs inhalation QID PRN guaifenesin 100 mg (5 mL) PO Q4H PRN methadone 60 mg PO DAILY terbinafine HCl 250 mg PO DAILY tiotropium bromide (Spiriva with HandiHaler) 1 cap inhalation DAILY HPI Comments Details: Patient presents for excision of her left inframammary fold recurrent symptomatic sebaceous cyst. Risks and benefits, alternatives of the procedure reviewed with the patient included but not limited to bleeding, infection, recurrence, numbness, pain, scarring the patient wished to proceed. All questions answered. Consent signed [facility] Medical History Abnormal EKG Acute respiratory failure COPD exacerbation Lung collapse COPD (chronic obstructive pulmonary disease) Surgical History H/O: History of tracheostomy Family History Mother No problems noted. 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 Wound was irrigated, secured hemostasis, and closed using running subcuticular 3-0 Vicryl suture followed by Steri-Strips and sterile dressings. Patient tolerated procedure well. 53630-bzzra/arms/legs 3.1-4cm Procedure code (CPT) selection complete Office Meds lidocaine 1 %-epinephrine 1:100,000 injection solution Performing Provider: Naresh Morrow MD [place] [facility] [facility] Administered by: Naresh Morrow MD on 05/24/24 11:22 Dose Route Admin Location Dispensed Lot Number Expiration Date NDC Dry Cleaning Checker 20 mL Infiltration 20 mL Assessment & Plan Assessment & Plan (1) Epidermal inclusion cyst: Code(s): L72.0 - Epidermal cyst Category: Medical Plan Patient was been given local instructions, ice to the wound periodically, may shower they after tomorrow removing only outside dressing leaving Steri-Strips intact, no strenuous activities, and because of her significant methadone prescription, Motrin will be prescribed. Patient was see me as directed or p.r.n.. All questions answered. Orders: Orders AMB Excision Today L72.0 - Epidermal cyst Medications: New lidocaine-epinephrine 1 %-1:100,000 20 mL Infiltration ONCE 30 mL 0RF L72.0 - Epidermal cyst ibuprofen 800 mg PO Q8H PRN 30 tabs 0RF pain Coding Level of Care Code Est Pt Level 5 (84801) Diagnoses Epidermal inclusion cyst L72.0 CPT Codes Trunk/Arms/Legs - CPT: 58709-ijmzo/arms/legs 3.1-4cm ([id number])
== END 2024-05-24 11:10 | disposition home or self-care (01) ==
PROVIDERS: PCP Internal Medicine; Visit Provider Surgery
DX: L72.0 Epidermal cyst (principal)
CPT/HCPCS: 11403; 99213

== ENCOUNTER 2024-05-24 10:25 | Outpatient (REF) | payer OTHER, SELFPAY | END 2024-05-24 10:26 | disposition home or self-care (01) | LOC: HO.LNP 10:25 | PROVIDERS: PCP Internal Medicine; Visit Provider Surgery | DX: L72.0 Epidermal cyst (principal) | CPT/HCPCS: 11403; 88304 ==

== ENCOUNTER 2024-06-01 10:07 | Outpatient (AMB) | payer OTHER, SELFPAY ==
--- NOTE | 2024-06-01 10:08 | MHC.OFFVIS ---
Intake Visit Reasons: s/p EXC~ EIC LUQ Intake Note: Patient here s/p cyst excision on LUQ. Reports incision healing well. Patient c/o: bruising around bandage. Steri strips removed without incident. Gauze provided. Software Quality Assurance Engineer Required: No Accompanied by: Self / Same As Patient Allergies No Known Allergies Allergy (Verified 06/01/24 10:16) HPI Comments Details: Patient was sent for follow-up. She has no wound issues or complaints. Pathology is benign [facility] Medical History (Updated 05/28/24 @ 13:21 by ZABRINA Gillette) Epidermal inclusion cyst (05/24/24) Abnormal EKG Acute respiratory failure COPD exacerbation Lung collapse COPD (chronic obstructive pulmonary disease) Surgical History (Updated 06/01/24 @ 10:16 by Naresh Morrow MD) H/O: History of tracheostomy Family History Mother No problems noted. 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 All questions answered. Coding Level of Care Code Global (65777) Diagnoses Encounter for postoperative wound check Z48.89
--- OUTSIDE RECORDS SUMMARY | 2024-06-01 10:57 | XMS_ITS | Encounter Summary ---
Author Organization [employer] Address [address] [place] [address] Care Team Providers Care Front Attendant Name Role Phone Gilbert Traore MD Primary Care Prov ider Encounter Details Date Type Department Care Team (Latest Contact Info) Description 05/13/2024 Travel Social History Tobacco Use Types Packs/Day Years Used Date Smoking Tobacco: Former Cigarettes 1 36.1 S tarted: 05/05/1988 Passive Smoke Exposure: Never Smokeless Tobacco: Never Alcohol Use Standard Drinks/Week Comments Never 0 (1 standard drink = 0.6 oz pur e alcohol) Depression Answer Date Recorded Patient Health Questionnaire-9 Score 0 04/14/2024 Patient Health Questionnaire-9 Score 0 04/14/2024 Last PHQ-9: Questionnaire Data Not on file 1 06/15/2023 Housing Stability Answer Date Recorded What is your housing situation today? I have suzette arce 04/14/[address] you li ve. Do you have problems with any of the following? None of the above 04/14/2024 Food Insecurity Answer Date Recorded Within the past 12 months, y ou worried that your food would run out before you got money to buy more: Never True 04/14/2024 Within the past 12 months,th e food you bought just didn't last and you didn't have enough money to get more: Never True 03/2024 Transportation Answer Date Recorded In the past 12 months, has l ack of transportation kept you from medical appts, meetings, work or from getting things needed for daily living? No 04/14/2024 Utilities Answer Date Recorded In the past 12 months, has t he electric, gas, oil or water [facility] threatened to shut off services in your home? No 04/14/2024 Depression Answer Date Recorded Patient Health Questionnaire-2 Score 0 04/14/2024 Internet Access Answer Date Recorded Internet Access Q1 Yes 04/14/2024 Internet Access Q2 Not on file 04/14/2024 Comments No Sex and Gender Information Value Date Recorded Sex Assigned at Female 03/04/2022 10:18 AM EDT Legal Sex Female 10:18 AM EDT Gender Identity Female 03/04/2022 10:18 AM EDT Sexual Orientation Choose not to disclose 2021 10:18 AM EDT documented as of this encounter Plan of Treatment Upcoming Encounters Date Type Department Care Team (Late st Contact Info) Description 06/03/2024 2:00 PM EST Clinical Support [facility] DIABETES/NTRN [address] [place] [address] Janett Cortes, RD [address] [place] [address] documented as of this encounter Visit Diagnoses Not on filedocumented in this encounter Additional Health Concerns Assessment Noted Time PHQ-9 Depression Total Score: 0 04/14/20 24 9:02 AM EST documented as of this encounter Care Teams Front Attendant Relationship Specialty Start Date End Date Gilbert Traore MD [address] [place] [address] PCP - General Internal Medicine 09/13/19 documented as of this encounter
--- OUTSIDE RECORDS SUMMARY | 2024-06-01 10:57 | XMS_ITS | Encounter Summary ---
Author Organization [employer] Address [address] [facility] 7 [place] [address] Care Team Providers Care Welt Treater Name Role Phone Gilbert Traore MD Primary Care Prov ider Reason for Visit * Reason Onset Date Comments Nurse Triage 05/04/2024 Encounter Details Date Type Department Care Team ([facility] Contact Info) Description 05/04/2024 Telephone [facility] CHC MED & PEDS [address] [place] [address] Gilbert Traore MD [address] [place] [address] Nurse Triage Social History Tobacco Use Types Packs/Day Years [...] t he electric, gas, oil or water company threatened to shut off services in your [...] AM EDT documented as of this encounter Miscellaneous Notes * Telephone Encounter - Tali Lan LPN - 05/04/2024 11:48 AM EST Triage call returned to patient who reports that cyst identified at last visit has ruptured underneath her breast. Area ruptured last Friday as she woke up with wet nightgown and found area open and draining greenish pus followed then by sanguinous discharge. Patient has been caring for area with agauze type Band- Aid. No noted fever no spreading redness. Edges of wound are darker than skin. Patient still feels firm lump beneath open area that is the size of approx pea. Patient anxious with area involved. Reviewed with patient home care recommendations and reasons to call back. Pt verbalized understanding and agrees. Patient given Referral # and [facility] office contact number tofollow from Referral placed 04/23/24. Patient will call them now to follow. Patient also given [facility] in [facility] location and number to access evaluation today as needed. Patient verbalized understanding of all instructions. Patient may call back after holiday on 05/06/23 as needed if CHC sickslot is required. Protocol Used: Boil (Skin Abscess) (Adult) Protocol-Based Disposition: See in Office or Video Visit Today or Tomorrow Override (Final) Disposition: Refer to Specialist Override Reason: Already seen and questions Override Notes: Area has ruptured. C General Surgeon referral to follow and [facility] location provided as needed today. Video visit offer not recorded Positive Triage Question: * Patient wants to be seen * All higher-acuity triage questions were negative Care Advice Discussed: * Treatment for a Boil - Antibiotic Ointment * Draining Pus Is Contagious * Pain Medicines * Reasons To Call Back - Severe pain or fever occurs - Widespread rash occurs - You become worse * Telephone Encounter - Alanna Wood - 05/04/2024 11:20 AM EST Symptom: Skin Lump popped and is concern Outcome: Schedule an appointment to be seen within 3 days Reason: Caller denied all higher acuity questions The caller accepted this outcome. documented in this encounter Plan of Treatment Upcoming Encounters Date Type Department Care Team (Late st Contact Info) Description 06/03/2024 2:00 PM EST Clinical Support [facility] DIABETES/NTRN [address] [place] [address] Janett Cortes, RADAMES [address] [place] [address] documented as of this encounter Visit Diagnoses Not on filedocumented in this encounter Additional Health Concerns Assessment Noted Time PHQ-9 Depression Total Score: 0 04/14/20 24 9:02 AM EST documented as of this encounter Care Teams Welt Treater Relationship Specialty Start Date End Date Gilbert Traore MD [address] [place] [address] PCP - General Internal Medicine 09/13/19 documented as of this encounter
--- OUTSIDE RECORDS SUMMARY | 2024-06-01 10:57 | XMS_ITS | Encounter Summary ---
Author Organization [employer] Address [address] [facility] [address]t [place] [address] Care Team Providers Care Shuttle Filler Name Role Phone Gilbert Traore MD Primary Care Prov ider Reason for Visit * Reason Comments Med Change Request Encounter Details Date Type Department Care Team ([facility] Contact Info) Description 10/14/2023 Refill [facility] CHC MED & PEDS [address] [place] [address] Bridgette Dowell MD [address] [place] [address] Social History Tobacco Use Types Packs/Day Years Used Date Smoking Tobacco: Former Cigarettes 1 36.1 S tarted: 05/05/1988 Passive Smoke Exposure: Never Smokeless Tobacco: Never Alcohol Use Standard Drinks/Week Comments Never 0 (1 standard drink = 0.6 oz pur e alcohol) Comments No Sex and Gender Information Value Date Recorded Sex Assigned at Female 03/04/2022 10:18 AM EDT Legal Sex Female 10:18 AM EDT Gender Identity Female 03/04/2022 10:18 AM EDT Sexual Orientation Choose not to disclose 2021 10:18 AM EDT documented as of this encounter Miscellaneous Notes * Telephone Encounter - Wing Juanis RN - 10/20/2023 4:30 PM EDT Tc to pt to relay the recommendations made by PCP below for sunburns. Unable to reach pt, left message for pt to call back. * Telephone Encounter - Bridgette Dowell MD - 10/20/2023 4:04 PM EDT * Telephone Encounter - Wing Juanis RN - 10/20/2023 3:38 PM EDT Please see message above. * Telephone Encounter - Wing Juanis RN - 10/20/2023 3:36 PM EDT Tc to pt's pharmacy and spoke to pharmacist Saran. He recommended aloe vera and Cerave OTC combination. Stated there was not much elese he could recommend for sunburn that they had in stock. * Telephone Encounter - Bridgette Dowell MD - 10/20/2023 2:33 PM EDT What do they have available for sun burn in the pharmacy documented in this encounter Plan of Treatment Upcoming Encounters Date Type Department Care Team (Late st Contact Info) Description 06/03/2024 2:00 PM EST Clinical Support [facility] DIABETES/NTRN [address] [place] [address] Janett Cortes, RD [address] [place] [address] documented as of this encounter Visit Diagnoses Not on filedocumented in this encounter Care Teams Shuttle Filler Relationship Specialty Start Date End Date Gilbert Traore MD [address] [place] [address] PCP - General Internal Medicine 09/13/19 documented as of this encounter
--- OUTSIDE RECORDS SUMMARY | 2024-06-01 10:57 | XMS_ITS | Encounter Summary ---
Author Organization [employer] Address [address] [facility] [address] [place] [address] Care Team Providers Care Wreath Inspector Name Role Phone Gilbert Traore MD Primary Care Prov ider Encounter Details Date Type Department Care Team ([facility] Contact Info) Description 05/24/2024 Orders Only GENERIC EXTERNAL DATA DEPARTMENT Provider, Generic External Data Social History Tobacco Use Types Packs/Day Years [...] Description 06/03/2024 2:00 PM EST Clinical Support [facility] DIABETES/NTRN [address] [place], [place] [phone] Janett Cortes, RD [address] [place], [place] [phone] documented as of this encounter Procedures Procedure Name Priority Date/Time Associated Diagnosis Comments GROSS AND MICROSCOPIC LEVEL 3 Routine 05/24/2024 10:30 AM EST documented in this encounter Results * Gross and Microscopic Level 3 (05/24/2024 10:30 AM EST) 05/24/2024 10:3 0 AM EST 05/25/2024 8:18 AM EST [facility]S - 05/26/2024 12:27 PM EST ----- ------- Name: Yessica Natarajan ? Age/Sex: 53/F ? : 1970 Unit#: [id number] ?? Attend Dr: Naresh Morrow MD ?Re05/24/24 ?Status: DEP REF ? Location: HO.LNP ?Disch: ? ----- ------- SPEC : [id number] ?RECD: 05/25/24 ? STATUS: ??SOUT ? REQ NUM: [id number] ? NESSA: 05/24/24-1029 ? SUBM DR: Naresh Morrow MD ? ENTERED: ??05/25/24 ?SP TYPE: Surgical ? OTHR DR: Gilbert Traore MD ORDERED: ??Gross Micro L3 ? Diagnosis ?? Skin, left inframammary fold cyst, excision: ??Benign epidermal inclusion cyst with marked ?? inflammation and fibrosis. ?Clinical History Epidermal inclusion cyst, left inframammary fold ?Microscopic Description Microscopic sections reviewed. ? Material Received ?? Epidermal inclusion cyst, left inframammary fold ? Gross Description Received in formalin labeled ?epidermal inclusion cyst left inframammary fold? is a 2.5 x 0.8 cm ellipse of puckered and retracted santos skin and subcutaneous tissue excised to a maximum depth of 1.2 cm. ??The skin surface displays a few prominent, dilated, puckered and retracted pores measuring 0.2 cm. ??The margins are inked and the specimen is serially sectioned to reveal a 0.5 cm in greatest dimension clefted-cystic focus within the fibrous dermal tissue which focally communicates with peripheral margins. ??The remaining dermal and subcutaneous tissues are unremarkable. ??Cross-sections through the center of the specimen are submitted in cassette A1 and the tip portions are submitted in cassette A2. CEDS Copies To: ?? Gilbert Traore MD ?? [facility] ?? [address] [place] [address] ?? [place] [address] ?? [phone] ?? Naresh Morrow MD ?? [facility] ?? [address] ?? [place] [address] ?? [phone] ?? [email or web address] ? CONTINUED ON NEXT PAGE ----- ------- Name: Yessica Natarajan ? Age/Sex: 53/F ? : 1970 Unit#: [id number] ?? Attend Dr: Naresh Morrow MD ?Re05/24/24 ?Status: DEP REF ? Location: HO.LNP ?Disch: ? ----- ------- SPEC : [id number] ?RECD: 05/25/24 ? STATUS: ??SOUT ? REQ NUM: [id number] ? NESSA: 05/24/24-0 ? SUBM DR: Naresh Morrow MD ? ENTERED: ??05/25/24 ?SP TYPE: Surgical ? OTHR DR: Gilbert Traore MD ORDERED: ??Gross Micro L3 ? ----- ------- Signed (signature on file) Ysabel Clint 05/26/24 1227 ? ----- ------- ? END OF REPORT ? us Generic External Data Provider LAB CYTOLOGY JAYAE NURIS Final Result [facility] [address] [place] [address] [phone] documented in this encounter Visit Diagnoses Not on filedocumented in this encounter Additional Health Concerns Assessment Noted Time PHQ-9 Depression Total Score: 0 04/14/20 24 9:02 AM EST documented as of this encounter Care Teams Wreath Inspector Relationship Specialty Start Date End Date Gilbert Traore MD [address] [place] [id number] PCP - General Internal Medicine 09/13/19 documented as of this encounter
--- OUTSIDE RECORDS SUMMARY | 2024-06-01 10:57 | XMS_ITS | Encounter Summary ---
Author Organization [employer] Address [address] [place] [address] [address], [place] [address] Care Team Providers Care Board Member Name Role Phone Gilbert Traore MD Primary Care Prov ider Reason for Visit * Reason Comments Med Change Request Encounter Details Date Type Department Care Team ([facility] Contact Info) Description 01/16/2023 Refill [facility] MED & PEDS [address] [place], [place] [phone] Gilbert Traore MD [address] [place], [place] [phone] Simple chronic bronchitis (CMS/HCC) Social History Tobacco Use Types Packs/Day Years Used Date Smoking Tobacco: Never Assessed Comments Unknown Sex and Gender Information Value Date Recorded Sex Assigned at Female 03/04/2022 10:18 AM EDT Legal Sex Female 10:18 AM EDT Gender Identity Female 03/04/2022 10:18 AM EDT Sexual Orientation Choose not to disclose 2021 10:18 AM EDT documented as of this encounter Plan of Treatment Upcoming Encounters Date Type Department Care Team ([facility] Contact Info) Description 06/03/2024 2:00 PM EST Clinical Support [facility] DIABETES/NTRN [address] [place], [place] [phone] Janett Cortes, RADAMES [address] [place] [address] documented as of this encounter Visit Diagnoses Diagnosis Simple chronic bronchitis (CMS/HCC) Simple chronic bronchitis documented in this encounter Care Teams Board Member Relationship Specialty Start Date End Date AnnGilbert Vidal MD [address] [place] [id number] PCP - General Internal Medicine 09/13/19 documented as of this encounter
--- OUTSIDE RECORDS SUMMARY | 2024-06-01 10:57 | XMS_ITS | Encounter Summary ---
Author Organization [employer] Address [address] [place] [address] 7 [place] [address] Care Team Providers Care Public Health Training Assistant Name Role Phone Gilbert Traore MD Primary Care Prov ider Reason for Visit * Consultation (Routine) - Authorized Specialty Diagnoses / Procedures Referred By Ann t Referred To Contact Nutrition Diagnoses Class 1 obesity due to excess calories with serious comorbidity and body mass index (BMI) of 31.0 to 31.9 in adult Gilbert Traore MD [address] [place] [address] Phone: tel: fax: Referral ID Status Reason Start Date Expiration Date Visits Requested Visits Authorized [id number] Authorized Specialty Services Required 4 04/14/2025 1 1 Encounter Details Date Type Department Care Team ([facility] Contact Info) Description 05/13/2024 9:00 AM EST Nutrition [facility] DIABETES/NTRN [address] [place] [address] Janett Cortes, RD [address] [place] [address] Class 1 obesity due to excess calories with serious comorbidity and body mass index (BMI) of 31.0 to 31.9 in adult Social History Tobacco Use Types Packs/Day Years [...] AM EDT documented as of this encounter Last Filed Vital Signs Vital Sign Reading Time Taken Comments Blood Pressure - - Pulse - - Temperature - - Respiratory Rate - - Oxygen Saturation - - Inhaled Oxygen Concentration - - Weight 70.4 kg (155 lb 3.2 oz) 05/13/2024 10:40 AM EST Height 147.3 cm (4' 10 ) 05/13/2024 10:40 AM EST Body Mass Index 32.44 05/13/2024 10:40 AM EST documented in this encounter Progress Notes * Janett Cortes, RADAMES - 05/13/2024 9:00 AM EST In Person Visit Medical Diagnosis: E66.811, E66.09, Z68.31 Class 1 obesity due to excess calories with serious comorbidity and body mass index (BMI) of 31.0 to 31.9 in adult Class 1 obesity due to excess calories with serious comorbidity and body mass index (BMI) of 31.0 to 31.9 in adult Anthropometrics: Ht:4' 10 (1.473 m), Wt:155 lb 3.2 oz (70.4 kg), BMI: Body mass index is 32.44 kg/m??. Assessment: Patient (Pt) accepted nutrition education assessment appointment with RD. RD took Pt's weight. Weight revealed a slight increase of 1.2 lbs. since last appointment input on 04/23/2024. RD took 24 hour recall/ typical daily intake from Pt. Intake revealed Pt's diet is high in refine carbohydrates and low in: protein, whole grains, fiber,healthy fats, vegetables: cooked and fresh along with water intake. Today, Pt only did the first half of First appointment. Once the second half of First appointment is finished, RD will fill in nutrition diagnosis, nutrition Intervention, goals, Tailored made meal plan, monitoring and evaluation will be put into Pt's chart here. Thus, all is to be followed by Pt with their agreement. The second half of First nutrition education assessment appointment is scheduled in the last week of May 2024. RD made some suggestions as goals for Pt to accomplish before next appointment with RD. Pt agreed to work on these goals. They are: Swap out sugary beverages for sugar free beverages Drink more water Note: Pt is starting today easy yoga; and, she is excited about it. Food Allergies: NKFA Exercise: Pt has not been doing any exercise. Today, Pt is starting easy yoga. Food Intolerance: None mentioned Food Preferences: Iced coffee with caramel machiotto drink mix, ice tea from Snapple, green tea w/ sugar, croissants,wh. Breads, Iam noodles, pineapple, kiwi, blueberries, peanuts, raisins, M&M's, Inocencio Donutscoffee, green tea, [place]raltarian yogurt, seafood salad, egg salad, turkey, [place]err[place]ian cheese, raza, scallops, steak tips, mashed potatoes, tomatoes, cucumber, lettuces, coffee Food Dislikes: Didn't say Frequency of Eating Out/ Restaurant: 3-4 x weekly Who Cooks?: Patient How much caffeine?: Coffee: 1-2 cups day; tea: 4+ cups How much sugary beverages?: Tea, 4 cups/ day and Coffee, 1-2 cups/ day Diet History: Breakfast: The other half of sandwich eaten at dinner Bread, w. Wheat: 1 slice [place]: one slice Cheese, Montserratian: 1/2 slice Snapple ice tea regular sweetened with sugar: 2 cups Or, Fruit- pineapple: 1/2 -1 and/or kiwi: one and/ or blueberries: 1/2 cup Snack: Water: 1/2 cup Lunch: Chobani Gibraltarian yogurt: 5 oz. Snack: none Dinner: Iced coffee, Inocencio Donuts- caramel machiatto: 2 cups Snack: Green tea: 1 cup Sugar: 2 tablespoons Nutrition Diagnosis: 1st half of First appointment was done today. When the 2nd half of First appointment is finished/ done, this area will be filled in. Nutrition Intervention: 1st half of First appointment was done today. When the 2nd half of First appointment is finished/ done, this area will be filled in. Monitoring and Evaluation: 1st half of First appointment was done today. When the 2nd half of First appointment is finished/ done, this area will be filled in. Provider: Janett Cortes RD, GEN documented in this encounter Plan of Treatment Upcoming Encounters Date Type Department Care Team (Late st Contact Info) Description 06/03/2024 2:00 PM EST Clinical Support [facility] DIABETES/NTRN [address] [place] [address] [place], [place] [phone] documented as of this encounter Visit Diagnoses Diagnosis Class 1 obesity due to excess calories with serious comorbidity and body mass index (BMI) of 31.0 to 31.9 in adult documented in this encounter Additional Health Concerns Assessment Noted Time PHQ-9 Depression Total Score: 0 04/14/20 24 9:02 AM EST documented as of this encounter Care Teams Public Health Training Assistant Relationship Specialty Start Date End Date Gilbert Traore MD [address] [place] [phone] PCP - General Internal Medicine 09/13/19 documented as of this encounter
--- OUTSIDE RECORDS SUMMARY | 2024-06-01 10:57 | XMS_ITS | Encounter Summary ---
Author Organization [employer] Address [address] [facility] 7 [place] [address] Care Team Providers Care Sustainability Communicator Name Role Phone Gilbert Traore MD Primary Care Prov ider Reason for Visit * Reason Onset Date Comments Results 04/23/2024 Encounter Details Date Type Department Care Team ([facility] Contact Info) Description 04/23/2024 Telephone [facility] CHC MED & PEDS [address] [place] [address] Gilbert Traore MD [address] [place] [address] Results Social History Tobacco Use Types Packs/Day Years [...] encounter Miscellaneous Notes * Telephone Encounter - Alanna Wood - 04/23/2024 11:06 AM EST TC from pt requesting call back regarding Results. Type of results: blood work Date when done: 04/14/24 Facility: [facility] documented in this encounter Plan of Treatment Upcoming Encounters Date Type Department Care Team (Late st Contact Info) Description 06/03/2024 2:00 PM EST Clinical Support [facility] DIABETES/NTRN [address] [place] [address] [place] [address] documented as of this encounter Visit Diagnoses Not on filedocumented in this encounter Additional Health Concerns Assessment Noted Time PHQ-9 Depression Total Score: 0 04/14/20 9:02 AM EST documented as of this encounter Care Teams Sustainability Communicator Relationship Specialty Start Date End Date Gilbert Traore MD [address] [place] [address] PCP - General Internal Medicine 09/13/19 documented as of this encounter
--- OUTSIDE RECORDS SUMMARY | 2024-06-01 10:57 | XMS_ITS | Encounter Summary ---
Author Organization [employer] Address [address] [place] [address] 7 [place] [address] Care Team Providers Care Vehicle Modification Technician Name Role Phone Gilbert Traore MD Primary Care Prov ider Encounter Details Date Type Department Care Team ([facility] Contact Info) Description 11/03/2023 Orders Only [facility] MED & PEDS [address] [place], [place] [phone] Gilbert Traore MD [address] [place] [address] Simple chronic bronchitis (CMS/HCC) Social History Tobacco [...] Encounters Date Type Department Care Team (Late Contact Info) Description 06/03/2024 2:00 PM EST Clinical Support [facility] DIABETES/NTRN [address] [place], [place] [phone] Janett Cortes RD [address] [place] [address] documented as of this encounter Visit Diagnoses Diagnosis Simple chronic bronchitis (CMS/HCC) Simple chronic bronchitis documented in this encounter Care Teams Vehicle Modification Technician Relationship Specialty Start Date End Date Gilbert Traore MD [address] [place] [address] PCP - General Internal Medicine 09/13/19 documented as of this encounter
--- OUTSIDE RECORDS SUMMARY | 2024-06-01 10:57 | XMS_ITS | Encounter Summary ---
Author Organization [facility] Address [address] [place] [address] [address] [place] [address] Care Team Providers Care Scheduling Coordinator Name Role Phone Gilbert Traore MD Primary Care Prov ider Encounter Details Date Type Department Care Team ([facility] Contact Info) Description 08/25/2023 Orders Only [facility] MEDICINE [address] [place], [place] [phone] Provider, Historical, Social History Tobacco Use Types Packs/Day Years [...] Upcoming Encounters Date Type Department Care Team ([facility] Contact Info) Description 06/03/2024 2:00 PM EST Clinical Support [facility] CH[facility] DIABETES/NTRN [address] [place] [address] Janett Cortes, RD [address] [place], [place] [phone] documented as of this encounter Procedures Procedure Name Priority Date/Time Associated Diagnosis Comments HM COLONOSCOPY Routine 08/08/2016 9:19 AM EDT documented in this encounter Results * Hm Colonoscopy (08/08/2016 9:19 AM EDT) us Historical Provider HEALTH MAINTENANCE Final Result documented in this encounter Visit Diagnoses Not on filedocumented in this encounter Care Teams Scheduling Coordinator Relationship Specialty Start Date End Date AnnGilbert Vidal MD [address] [place] [id number] PCP - General Internal Medicine 09/13/19 documented as of this encounter
--- OUTSIDE RECORDS SUMMARY | 2024-06-01 10:57 | XMS_ITS | Clinical Summary ---
Author Organization [employer] Address [address] [place] [address] [address] [place] [address] Care Team Providers Care Etcher Electrolytic Name Role Phone Gilbert Traore MD Primary Care Prov ider Allergies Active Allergy Reactions Criticality Noted Date Comments Bee Pollen 12/07/2013 Bee Venom Swelling 06/09/2023 Medications amitriptyline (Elavil) 25 MG tabletIndicatio ns:Acute insomnia TAKE 1 TABLET BY MOUTH EVERYDAY AT BEDTIME 90 tablet 1 3 Active diclofenac (Cataflam) 50 MG tablet Take 1 tablet (50 mg) by mouth 3 times daily. 90 tablet 4 Active Blood Pressure kit 1 Units in the morning. 1 kit 4 Active cyclobenzaprine (Flexeril) 10 MG tablet Take 1 tablet (10 mg) by mouth 3 times daily for 10 days. 30 tablet 4 Active albuterol 108 (90 Base) MCG/ACT inhalerIndicati ons:Simple chronic bronchitis (CMS/HCC) Inhale 2 puffs every 4 (four) hours if needed for wheezing. 18 g 11 4 07/22/19 25 Active losartan (Cozaar) 50 MG tablet Take 1 tablet (50 mg) by mouth in the morning. 90 tablet 3 4 08/08/19 25 Active calamine-zinc oxide lotion Apply topically if needed (sunburn). 118 mL 4 Active tiotropium (Spiriva HandiHaler) 18 MCG inhalation capsuleIndicati ons:Simple chronic bronchitis (CMS/HCC) Place 1 capsule (18 mcg) into inhaler and inhale in the morning. 90 capsule 3 4 10/31/19 25 Active terbinafine (LamISIL) 250 MG tablet Take 1 tablet (250 mg) by mouth Once per day. 90 tablet 4 07/23/19 25 Active Active Problems Problem Noted Date Diagnosed Date Onychomycosis 04/14/2024 Assessment & Plan (04/14/2024 11:43 AM EST): Will provide terbinafine, continue good higiene and dry extremity, wear appropiate shoes, follow up in 3 months Class 1 obesity due to exces s calories with serious comorbidity and body mass index (BMI) of 31.0 to 31.9 in adult 04/14/2024 Assessment & Plan (04/14/2024 11:54 AM EST): Will refer to power engineer, encouraged low calorie intake, small meals cut carbohydrates Sunburn 10/14/2023 Assessment & Plan (10/14/2023 9:38 AM EDT): Sunburn recommendations discussed. At this moment will send calamine, recommended aloe vera or oatmeal based moisturizers. Primary hypertension 07/04/2023 Assessment & Plan (04/14/2024 11:42 AM EST): Controled, continue losartan 50mg, keep low sodium diet and exercise as tolerated, keep bp log, follow up in 3 months Assessment & Plan (08/08/2023 2:53 PM EDT): Patient felt dizzy while on 100mg, will decrease dose to 50mg, keep low sodium diet/exercise, follow up in 3 months, bp target <140/90 Assessment & Plan (07/21/2023 10:49 PM EDT): Uncontrolled, will start on losartan 50mg, bp target <140/90, follw up in 2 weeks, patient is currently asymptomatic Assessment & Plan (07/04/2023 11:52 AM EST): Improving, but not at target, will increase losartan to 100mg, continue low sodium diet, follow up in 1 month Results as follow 129/90-131/95-117/83-135/104-103/78 Chronic left shoulder pain 06/03/2023 Assessment & Plan (06/03/2023 2:59 PM EST): Patient that presented visit with complaints of L shoulder pain will be sent for imaging for further evaluation. Advised patient that it would benefit to assist to physical therapy if symptoms don't improve. In addition, patient will be provided with Diclofenac to moderate pain. Furthermore, patient will be referred to Orthopaedic. Acute insomnia 06/10/2022 Assessment & Plan (07/31/2022 9:00 AM EDT): Improved with elavil, reinforced lifestyle modification, continue current treatment Assessment & Plan (07/18/2022 3:47 PM EDT): Patient complains of episode of twitching after starting trazodone, she refer it was helping with her sleep, will switch to amitryptiline, stop if any side effects are developed, will follow up in 6-8 weeks Assessment & Plan (06/10/2022 12:56 PM EST): Lifestyle modification were discussed, will provide trazodone daily, follow up in 6-8 weeks Simple chronic bronchitis 06/10/2022 Assessment & Plan (06/10/2022 12:57 PM EST): She restarted smoking, reinforced importance of smoking cesation, will renew albuterol Physical exam 06/10/2022 Assessment & Plan (06/10/2022 12:58 PM EST): Will place order for routine labs Chronic bilateral low back pain with left-sided sciatica 06/10/2022 Assessment & Plan (07/21/2023 10:50 PM EDT): Will provide prednisone and muscle relaxant, rest, apply ice, call back if not improving Assessment & Plan (06/10/2022 1:00 PM EST): Straight leg raise was positive, will refer to PT, rest, apply ice/heat pads. Cervical cancer screening 06/10/2022 Assessment & Plan (10/14/2023 9:37 AM EDT): Screening done, will f/up on results. Sample obtain unclear if satisfactory as patient didn't tolerate examination well. At this moment will send swab and f/up on results. Assessment & Plan (06/10/2022 1:00 PM EST): Will refer for screening pap smear, she prefers a female provider Methadone use Resolved Problems Problem Noted Date Diagnosed Date Resolved Date Elevated blood pressure reading 06/03/2023 04/23/2024 Assessment & Plan (06/03/2023 3:00 PM EST): Was noticed that patient presented visit with an elevated blood pressure with readings of 148/86 mmHg. As a result, patient will be provided with a blood pressure kid and was advised to monitor readings at home, and bring numbers upon next office visit. Encounters Date Type Department Care Team Description 05/24/2024 Orders Only GENERIC EXTERNAL DATA DEPARTMENT Provider, Generic External Data 05/13/2024 9:00 AM EST Nutrition [facility] [address] [place] [address] Janett Cortes, RADAMES Class 1 obesity due to excess calories with serious comorbidity and body mass index (BMI) of 31.0 to 31.9 in adult 05/13/2024 Travel 05/04/2024 Telephone [facility] [address] [place] [address] Gilbert Traore MD Nurse Triage 04/23/2024 3:30 PM EST Office Visit [facility] [address] [place] [address] Tenisha Waldron FNP Epidermoid cyst (Primary Dx) 04/23/2024 Travel 04/23/2024 Telephone [facility] [address] [place] [address] Gilbert Traore MD Nurse Triage 04/23/2024 Telephone [facility] [address] [place] [address] Gilbert Traore MD Results 04/14/2024 8:45 AM EST Office Visit [facility] [address] [place] [address] Gilbert Traore MD Primary hypertension (Primary Dx); Encounter for immunization; Onychomycosis; Dietary counseling; Exercise counseling; Class 1 obesity due to excess calories with serious comorbidity and body mass index (BMI) of 31.0 to 31.9 in adult 04/14/2024 Travel 03/31/2024 Travel from Last 3 Months Immunizations Name Administration Dates Next Due Influenza, seasonal, injecta ble, preservative free 04/14/2024 Moderna Covid-19 Vaccine 12+ 04/06/2021, 08/03/2020,07/07/2020,2020 Moderna Covid-19 Vaccine 6+ Bivalent 04/30/2022 Tdap 04/14/2024 Family History Medical History Relation Name Comments stomach disease Mother Relation Name Status Comments Mother Social History Tobacco Use Types Packs/Day Years [...] not to disclose 2021 10:18 AM EDT Last Filed Vital Signs Vital Sign Reading Time Taken Comments Blood Pressure 133/79 04/23/2024 3:36 PM EST Pulse 81 04/23/2024 3:36 PM EST Temperature 37 ??C (98.6 ??F) 04/23/2024 3:36 PM EST Respiratory Rate 18 04/23/2024 3:36 PM EST Oxygen Saturation 91% 04/23/2024 3:36 PM EST Inhaled Oxygen Concentration - - Weight 70.4 kg (155 lb 3.2 oz) 05/13/2024 10:40 AM EST Height 147.3 cm (4' 10 ) 05/13/2024 10:40 AM EST Body Mass Index 32.44 05/13/2024 10:40 AM EST Plan of Treatment Upcoming Encounters Date Type Department Care Team (Late st Contact Info) Description 06/03/2024 2:00 PM EST Clinical Support [facility] [address] [place] [address] [place] [address] Health Maintenance Due Date Last Done Comments CT Colonography 1970 FIT DNA/Cologuard 1970 FIT 1970 FOBT 1970 Sigmoidoscopy 1970 Pneumococcal Vaccine: Pediatrics (0 to 5 Years) and At-Risk Patients (6 to 64 Years) (1 of 2 - PCV) 1974 Hepatitis A Vaccines (1 of 2 - Risk 2-dose series) 09/09/1987 Hepatitis B Vaccines (1 of 3 - 19+ 3-dose series) 09/09/1987 Zoster Vaccines (1 of 2) 2018 COVID-19 Vaccine ( - season) 2024 04/30/2022, 04/06/2021, 08/03/2020, Additional history exists Cervical Cancer Screening 10/13/2024 HPV/Cotest 10/13/2024 10/14/2023 Pap Smear 10/13/2024 10/14/2023 Alcohol/Substance Use Screening 04/14/2025 04/14/2024 Depression Screening 04/14/2025 04/14/2024, 04/14/20 SDOH Screening 04/14/2025 04/14/2024 Tobacco Screening 04/23/2025 04/23/2024 Mammogram 07/03/2025 07/04/2023, 04/04, 09/20/2021 Colonoscopy 08/08/2026 08/08/2016 Colorectal Cancer Screening 08/08/2026 Lipid Panel 04/15/2029 04/15/2024, 0210/2022, 08/07/2021 DTaP/Tdap/Td Vaccines (2 - Td or Tdap) 04/14/2034 04/14/2024 RSV Patients and Patients Aged 60 years or older (1 - 1-dose 75+ series) 09/09/2043 HIV Screening Completed 06/10/2022, 08/07/2021 Influenza Vaccine Completed 04/14/2024 HIB Vaccines Aged Out No longer eligi ble based on patient's age to complete this topic HPV Vaccines Aged Out No longer eligi ble based on patient's age to complete this topic IPV Vaccines Aged Out No longer eligi ble based on patient's age to complete this topic Meningococcal Vaccine Aged Out No moi keegan eligible based on patient's age to complete this topic RSV under 20 months Aged Out No longe r eligible based on patient's age to complete this topic Rotavirus Vaccines Aged Out No longer eligible based on patient's age to complete this topic Procedures Procedure Name Priority Date/Time Associated Diagnosis Comments GROSS AND MICROSCOPIC LEVEL 3 Routine 05/24/2024 10:30 AM EST HEMOGLOBIN A1C Routine 04/15/2024 9:18 AM EST Primary hypertension TSH W/REFLEX TO FT4 Routine 04/15/2024 9 :18 AM EST Primary hypertension LIPID PANEL, STANDARD Routine 04/15/2024 9:18 AM EST Primary hypertension COMPREHENSIVE METABOLIC PANEL Routine 04/15/2024 9:18 AM EST Primary hypertension CBC WITH AUTO DIFFERENTIAL Routine 04/15/2024 9:18 AM EST Primary hypertension HPV MRNA E6/E7 REFLEX TO HPV 16, 18/45 Routine 10/14/2023 2:34 PM EDT PAP SMEAR Routine 10/14/2023 9:30 AM EDT Cervical cancer screening BI MAMMOGRAM SCREENING TOMOSYNTHESIS BILATERAL Routine 07/04/2023 9:20 AM EST HIV 1 RNA, QN PCR W/RFL JENI (RTI,PI,INTEGRASE) Routine 06/10/2022 11:13 AM EST Physical exam HM COLONOSCOPY Routine 08/08/2016 9:19 AM EDT from Last 3 Months or Most Recently Relevant to Health Maintenance Results * Gross and Microscopic Level 3 (05/24/2024 10:30 AM EST) 05/24/2024 10:3 0 AM EST 05/25/2024 8:18 AM EST [facility] - 05/26/2024 12:27 PM EST ----- ------- Name: NehadarrylYessica ? Age/Sex: 53/F ? : 1970 Unit#: [id number] ?? Attend Dr: Naresh Morrow MD ?Re05/24/24 ?Status: DEP REF ? Location: HO.LNP ?Disch: ? ----- ------- SPEC : [id number] ?RECD: 05/25/24 ? STATUS: ??SOUT ? REQ NUM: [id number] ? NESSA: 05/24/24-1029 ? SUBM DR: Naresh [...] Copies To: ?? Gilbert Traore MD ?? [facility] ?? [address] ?? [place] [address] ?? [phone] ?? Naresh Morrow MD ?? [facility] ?? [address] ?? [place] [address] ?? [phone] ?? [email or web address] ? CONTINUED ON NEXT PAGE ----- ------- Name: Yessica Natarajan ? Age/Sex: 53/F ? : 1970 Unit#: [id number] ?? Attend Dr: Naresh Morrow MD ?Re05/24/24 ?Status: DEP REF ? Location: HO.LNP ?Disch: ? ----- ------- SPEC : [id number] ?RECD: 05/25/24 ? STATUS: ??SOUT ? REQ NUM: [id number] ? NESSA: 05/24/24-0 ? SUBM DR: Naresh Morrow MD ? ENTERED: ??05/25/24 ?SP TYPE: Surgical ? OTHR DR: Gilbert Traore MD ORDERED: ??Gross Micro L3 ? ----- ------- Signed (signature on file) [place] 05/26/24 1227 ? ----- ------- ? END OF REPORT ? us Generic External Data Provider LAB CYTOLOGY ORDE RABLES Final Result Performing Organization Address [facility] Co de Phone Number [facility] [address] [place] [address] [phone] * TSH W/Reflex to FT4 (04/15/2024 9:18 AM EST) [facility] TSH reflex Free T4 2.74 0.32 - 4.0 uIU/mL [facility] Blood Venous blood specimen / Unknown 04/15/2024 9:18 AM EST 04/15/2024 2:20 PM EST Gilbert Ortiz MD LAB BLOOD ORDERABL ES Final Result Performing Organization Address [facility] Co de Phone Number [facility] [address] [place], [place] [phone] * CBC auto differential (04/15/2024 9:18 AM EST) [facility] White Blood Count 5.5 4.8 - 10.8 X10*3/uL [facility] Red Blood Count 4.86 4.20 - 5.50 X10*6/uL [facility] Hemoglobin 14.2 12.0 - 16.0 g/dl [facility] Hematocrit 45.0 37.0 - 47.0 % [facility] Mean Corpuscular Volume 92.6 80.0 - 98.0 fL [facility] Mean Corpuscular Hemoglobin 29.2 27.0 - 33.0 pg [facility] Mean Corpuscular HGB Conc 31.6 31.0 - 35.0 g/dl [facility] Red Cell Distribution Width 13.3 11.0 - 16.0 % [facility] Platelet Count 184 160 - 400 X10*3/uL [facility] Mean Platelet Volume 10.0 9.4 - 12.3 fL [facility] Neutrophils Percent Auto 49.3 45 - 73 % [facility] Imm Gran Pct Auto 0.2 0.0 - 0.4 % [facility] Lymphocytes Percent Auto 36.9 20 - 40 % [facility] Monocytes Percent Auto 9.2 2 - 11 % [facility] Eosinophils Percent Auto 4.0 0 - 4 % [facility] Basophils Percent Auto 0.4 0 - 2 % [facility] NRBC Pct Auto 0.0 0.0 - 0.2 /100WBC [facility] Neutrophils Absolute Auto 2.7 2.0 - 8.3 x10*3/uL [facility] Imm Gran Abs Auto 0.01 0.00 - 0.03 X10*3/uL [facility] Lymphocytes Absolute Auto 2.0 1.2 - 4.9 X10*3/uL [facility] Monocytes Absolute Auto 0.5 0.1 - 1.2 X10*3/uL [facility] Eosinophils Absolute Auto 0.2 0.0 - 0.4 X10*3/uL [facility] Basophils Absolute Auto 0.0 0.0 - 0.2 X10*3/uL [facility] NRBC Abs Auto 0.000 0.0 - 0.012 X10*3/uL [facility] Blood Venous blood specimen / Unknown 04/15/2024 9:18 AM EST 04/15/2024 2:16 PM EST Gilbert Ortiz MD LAB BLOOD ORDERABL ES Final Result Performing Organization Address [facility] Co de Phone Number [facility] [address] [place] [phone] * Hemoglobin A1c (04/15/2024 9:18 AM EST) Hemoglobin A1c 5.4 <6.0 % [facility] Comment:Hemoglobin A1C Refer ence Range Adults: 4.8 - 6.0 % Non diabetic: < 6.0 % Goal: < 7.0 %Additional Action Suggested: > 8.0 %Note: Hemoglobin A1c results are invalid for patients with abnormal amounts of HbF. Blood transfusions may impact the HbA1c concentration in the patient sample. Estimated Average Glucose 108 mg/dL [facility] Comment:eAG = Estimated ave rage glucose which is %A1C expressed asaverage glucose, using the formula of the E7G-LthmxpzYxaeafv Glucose study (ADAG), Diabetes Care, Vol.31,#8,Dec. 2007 Blood Venous blood specimen / Unknown 04/15/2024 9:18 AM EST 04/15/2024 2:16 PM EST Gilbert Ortiz MD LAB BLOOD ORDERABL ES Final Result Performing Organization Address [facility] Co de Phone Number [facility] [address] [place] [phone] * (ABNORMAL) Lipid Panel, Standard (04/15/2024 9:18 AM EST) Triglycerides 215(H) <150 mg/dL [facility] Comment:Desirable Triglyceri de: less than 150 mg/dLBorderline High Triglyceride 150-199 mg/dLHigh Triglyceride: 200-499 mg/dLVery High Triglyceride: greater than or equal to 5OO mg/dL Cholesterol 221(H) <200 mg/dL [facility] Comment:Desirable Cholestero l: less than 200 mg/dLBorderline High Cholesterol: 200-239 mg/dLHigh Cholesterol: greater than 239 mg/dL LDL Cholesterol Calculated 136(H) <100 mg/dL [facility] Comment:Desirable LDL: less than 100 mg/dLNear Optimal/Above Optimal LDL: 110- 129 mg/dLBorderline High LDL: 130-159 mg/dLHigh LDL: 160-189 mg/dLVery High LDL: greater than or equal to 190 mg/dL HDL Cholesterol 42 >40 mg/dL [facility] Comment:Desirable HDL: great er than 40 mg/dL Note: This HDL assay may give artificially low results in patients with liver disease. Blood Venous blood specimen / Unknown 04/15/2024 9:18 AM EST 04/15/2024 2:20 PM EST Gilbert Ortiz MD LAB BLOOD ORDERABL ES Final Result [facility] [address] [place] [address] [phone] * (ABNORMAL) Comprehensive Metabolic Panel (04/15/2024 9:18 AM EST) Sodium 144 135 - 145 mmol/L [facility] Potassium 4.5 3.3 - 5.1 mmol/L [facility] Chloride 104 96 - 108 mmol/L [facility] Carbon Dioxide 34(H) 22 - 29 mmol/L [facility] Anion Gap 11(L) 12 - 20 [facility] Urea Nitrogen (BUN) 10 9 - 16 mg/dL [facility] Creatinine, Serum 0.66 0.5 - 1.4 mg/dL [facility] Estimated Glomerular Filt Rate >60 [facility] Comment:Chronic Kidney Disea se: Estimated GFR < 60 mL/min/1.47a9Nunady Kidney Disease: Estimated GFR < 15 mL/min/1.73m2 Glucose 77 60 - 115 mg/dL [facility] Calcium 9.4 8.4 - 10.2 mg/dL [facility] Bilirubin, Total 0.3 0.0 - 1.0 mg/dL [facility] Aspartate Amino Transferase 31 5 - 31 U/L [facility] Alanine Aminotransferase 21 0 - 31 U/L [facility] Total Protein 7.7 6.5 - 8.0 g/dL [facility] Albumin Level 3.9 3.5 - 5.0 g/dL [facility] Alkaline Phosphatase 68 39 - 117 U/L [facility] Blood Venous blood specimen / Unknown 04/15/2024 9:18 AM EST 04/15/2024 2:20 PM EST Gilbert Ortiz MD LAB BLOOD ORDERABL ES Final Result [facility] [address] [place] [phone] [phone] * (ABNORMAL) HPV mRNA E6/E7 w/Reflex to HPV Genotypes 16, 18/45 (10/14/2023 2:34 PM EDT) HPV nRNA E6/E7 Detected(A ) Not Detected [facility] Comment:Methodology: Transcr iption-Mediated AmplificationThis assay detects E6/E7 viral messenger RNA (mRNA) from 14high-risk HPV types (16,18,31,33,35,39,45,51,52,56,58,59,66,68).Cervical sources are required for HPV testing.If a vaginal source from a patient who has had atotal hysterectomy with removal of cervix wassubmitted, please contact the testing laboratoryfor alternative testing options.For additional information, please refer tohttp://education.[employer]/faq/FSV824s1(This link if provided for information/educational purposes only.)THIS TEST WAS PERFORMED AT:[facility] [place] [phone] HOFFMANN MD HPV 16 RNA NOT DETECTED NOT DETECTED [facility] HPV 18/45 RNA NOT DETECTED NOT DETECTED [facility] Comment:Methodology: Transcr iption Mediated AmplificationCervical sources are required for HPV testing.If a vaginal source from a patient who has had atotal hysterectomy with removal of cervix wassubmitted, please contact the testing laboratoryfor alternative testing options.THIS TEST WAS PERFORMED AT:[facility] [place] [phone] HOFFMANN MD 10/14/2023 2:34 PM EDT 10/15/2023 11:18 AM EDT us Bridgette Dowell MD LAB CYTOLOGY ORDERABLES Final Result [facility] [address] [place] [phone] [phone] * Pap Smear (10/14/2023 9:30 AM EDT) Swab Vaginal structure / Unknown 10/14/2023 9:30 AM EDT 10/15/2023 6:00 AM EDT Narrative [facility] - 11/10/2023 11:17 AM EDT ----- ------- Name: Yessica Natarajan ? Age/Sex: 53/F ? : 1970 Unit#: [id number] ?? Attend Dr: Bridgette Dowell MD ?Re10/14/23 ?Status: DEP REF ? Location: HO.HHCLNP ? Disch: ? ----- ------- SPEC : [id number] ?RECD: 10/15/23 ? STATUS: ??SOUT ? REQ NUM: [id number] ? NESSA: 10/14/23 ? SUBM DR: Bridgette Dowell MD ? ENTERED: ??10/15/23 ?SP TYPE: Pap Smr ?OTHR DR: ? ORDERED: ??Pap Smear ? Interpretation ?? Satisfactory for evaluation. ?? No endocervical cells seen. ?? Negative for intraepithelial lesion or malignancy. ?? Coccobacilli consistent with shift in vaginal nasrin. ? HPV mRNA E6/E7: ?DETECTED ? This assay detects E6/E7 viral messenger RNA (mRNA) from 14 high-risk HPV types (16, 18, ?? 31, 33, 35, 39, 45, 51, 52, 56, 58, 59, 66, 68) ? HPV Type 16 RNA: ?Not Detected ?? HPV Type 18/45 RNA: ? Not Detected ? HPV testing performed by [facility], [place], [place]. ??See reference laboratory ?? portion of the EMR for entire report. ?Clinical Information LMP: 05/05/2019 Previous PAP test: Unknown date, unknown findings. Post menopausal. ? Material Received ?? ThinPrep-Cervical ----- ------- Signed (signature on file) Marlena Monteiro Kelly 11/10/23 1117 ? ----- ------- ? END OF REPORT ? us Bridgette Dowell MD LAB CYTOLOGY ORDERABLES Final Result [facility] [address] [place] [address] [phone] * BI Mammogram Screening Tomosynthesis Bilateral (07/04/2023 9:20 AM EST) Anatomical Region Laterality Modality Breast Bilateral Mammography 07/04/2023 9:20 AM EST Narrative 07/20/2023 10:20 AM EDT ? [facility] ? [address] ?[place] [address] ? Mammography Report ? Signed ? Patient: Basora,Yessica ?MR#: [id number] ? : 1970 ?Acct:[id number] ? Age/Sex: 52 / F ?ADM Date: 07/04/23 ? Loc: HO.MAMMO ? Attending Dr: Gilbert Ortiz MD ? Ordering Physician: Gilbert Traore MD ?Res ?? ults: 2Benign Findings ? Date of Service: 07/04/23 ?Follow Up: 1 Year From Orig ?? inal Mammogram ? Procedure(s): MM tomosynthesis screening BI ?? Accession Number(s): [id number] ? cc: Gilbert Traore MD ? EXAMINATION: ?? MM SCREENING DIGITAL BREAST TOMOSYNTHESIS, BILATERAL ? CLINICAL INFORMATION: ? Screening. Asymptomatic. ? The patient has a history of numerous individual silicone injections ?? into the breast tissue. ? COMPARISON: ? Mammography: This study is compared with prior exams dating back to ?? 2011. ? TECHNIQUE: ?? Digital breast tomosynthesis is performed in both the craniocaudal and ?? mediolateral oblique views along with computer-aided detection (CAD). ?? Synthesized 2D images are generated from the tomosynthesis. ? FINDINGS: ?? There are scattered areas of fibroglandular density (ACR BI-RADS breast ?? composition Category b). ? There are no significant masses, abnormal calcifications, or other ?? abnormalities. ? There are multiple areas of benign calcification with peripheral ?? calcification account service representative of injection granulomata from the ?? patient's history of free silicone injections. There is also suggestion ?? of silicone in one of the lymph nodes the lower left axilla. This is ?? unchanged from the prior examination from 2021. ? MM/MM tomosynthesis screening BI ?? IMPRESSION: ?? No mammographic evidence of malignancy. ? ASSESSMENT: ? BI-RADS BI-RADS 2 - Benign Findings ? RECOMMENDATION: ?? Routine annual mammography screening. ? 1 year F/U ? This examination should not preclude the clinical evaluation of a ?? suspicious palpable abnormality. ? This patient's information was entered into a reminder system with a ?? target due date for their next mammogram. ? Dictated By: ?Becky Dowell MD ? Signed By: ?<Electronically signed by Becky Dowell MD in OV> ? 07/20/23 1016 ? DD/ 0920 ? TD/TT: ? Disassembler Product: ? Procedure Note Clara, Image - 07/20/2023 [facility] [address] [place] [address] Mammography Report Signed Patient: Elisha Natarajan#: [id number] : 1970Acct:[id number] Age/Sex: 52 / FADM Date: 07/04/23 Loc: HO.MAMMO Attending Dr: Gilbert Ortiz MD Ordering Physician: Gilbert Traore ults: 2Benign Findings Date of Service: 07/04/23Follow Up: 1 Year From Orig inal Mammogram Procedure(s): MM tomosynthesis screening BI Accession Number(s): [id number] cc: Gilbert Traore MD EXAMINATION: MM SCREENING DIGITAL BREAST TOMOSYNTHESIS, BILATERAL CLINICAL INFORMATION: Screening. Asymptomatic. The patient has a history of numerous individual silicone injections into the breast tissue. COMPARISON: Mammography: This study is compared with prior exams dating back to 2011. TECHNIQUE: Digital breast tomosynthesis is performed in both the craniocaudal and mediolateral oblique views along with computer-aided detection (CAD). Synthesized 2D images are generated from the tomosynthesis. FINDINGS: There are scattered areas of fibroglandular density (ACR BI-RADS breast composition Category b). There are no significant masses, abnormal calcifications, or other abnormalities. There are multiple areas of benign calcification with peripheral calcification account service representative of injection granulomata from the patient's history of free silicone injections. There is also suggestion of silicone in one of the lymph nodes the lower left axilla. This is unchanged from the prior examination from 2021. MM/MM tomosynthesis screening BI IMPRESSION: No mammographic evidence of malignancy. ASSESSMENT: BI-RADS BI-RADS 2 - Benign Findings RECOMMENDATION: Routine annual mammography screening. 1 year F/U This examination should not preclude the clinical evaluation of a suspicious palpable abnormality. This patient's information was entered into a reminder system with a target due date for their next mammogram. Dictated By: Becky Dowell MD Signed By: <Electronically signed by Becky Dowell MD in OV> 07/20/23 1016 DD/ 0920 TD/TT: Disassembler Product: [facility] Marissa Ortiz MD [facility] BI PROCEDURES Edited Result - Final * HIV-1 RNA, Quantitative, Real-Time PCR with Reflex to Genotype (RTI, PI, Integrase) (06/10/2022 11:13 AM EST) HIV 1 RNA, QN PCR NOT DETECTED copies/mL [email or web address], HIV 1 RNA, QN PCR NOT DETECTED Log copies/mL [email or web address], Comment: REFERENCE RANGE: NOT DETECTED copies/mL ?NOT DETECTED ??Log copies/mL This test was performed using Real-Time Polymerase Chain Reaction. Reportable range is 20 to 10,000,000 copies/mL (1.30-7.00 Log copies/mL). 06/10/2022 11:1 3 AM EST 06/10/2022 11:14 AM EST Narrative [facility] - 06/13/2022 9:00 AM EST FASTING:NO FASTING: NO Gilbert Ortiz MD LAB BLOOD ORDERABL ES Final Result [facility] [address], [place] [address] [facility], [address] [place] [address] * Colonoscopy (08/08/2016 9:19 AM EDT) Leo Provider HEALTH MAINTENANCE Final Result from Last 3 Months or Most Recently Relevant to Health Maintenance Insurance [facility] , [address] [place] [address] [place] [address] Care Teams Etcher Electrolytic Relationship Specialty Start Date End Date Gilbert Traore MD [address] [place] [address] LARRY King [address] PCP - General Internal Medicine 09/13/19
--- OUTSIDE RECORDS SUMMARY | 2024-06-01 10:57 | XMS_ITS | Clinical Summary ---
Author Organization [facility] Address [address] [place] [address] Care Team Providers Care Wood Finisher Name Role Phone Dara Leiva MD Primary Care Provider [phone] Social History Tobacco Use Types Packs/Day Years Used Date Smoking Tobacco: Never Assessed Sex and Gender Information Value Date Recorded Sex Assigned at Not on file Gender Identity Not on file Sexual Orientation Not on file Plan of Treatment Health Maintenance Due Date Last Done Comments Breast Cancer Screening 1968 DTaP,Tdap,and Td Vaccines (1 - Tdap) 09/09/1987 Hepatitis A Vaccines (1 of 2 - Risk 2-dose series) 09/09/1987 Hepatitis B Vaccines (1 of 3 - 19+ 3-dose series) 09/09/1987 Cervical Cancer Screening: P ap Smear 1989 Zoster Vaccines (1 of 2) 2018 Colorectal Cancer Screening: Colonoscopy 04/02/2022 Depression Screening 04/02/2022 HIV Screening 04/02/2022 Hepatitis C Screening 04/02/2022 Social Influencers of Health Screening 04/02/2022 COVID-19 Vaccine ( - 2023-2 5 season) 2024 Influenza Vaccine (#1) 2024 HIB Vaccines Aged Out No longer eligi ble based on patient's age to complete this topic HPV Vaccines Aged Out No longer eligi ble based on patient's age to complete this topic IPV Vaccines Aged Out No longer eligi ble based on patient's age to complete this topic MMR Vaccines Aged Out No longer eligi ble based on patient's age to complete this topic Meningococcal ACWY Vaccine Aged Out N o longer eligible based on patient's age to complete this topic Pneumococcal Vaccine: Pediat rics (0 to 5 Years) and At-Risk Patients (6 to 64 Years) Aged Out No longer eligible b ased on patient's age to complete this topic RSV Immunization Patients Un rosetta 20 months Aged Out No longer eligible b ased on patient's age to complete this topic Varicella Vaccines Aged Out No longer eligible based on patient's age to complete this topic Care Teams Wood Finisher Relationship Specialty Start Date End Date Dara Leiva MD [address] [place] [address] PCP - General Internal Medicine 06/05/17
--- OUTSIDE RECORDS SUMMARY | 2024-06-01 10:57 | XMS_ITS | Encounter Summary ---
Author Organization [employer] Address [address] [facility] 7 [place] [address] Care Team Providers Care Rn Perinatal Name Role Phone Gilbert Traore MD Primary Care Prov ider Reason for Visit * Reason Onset Date Comments Nurse Triage 06/09/2023 Encounter Details Date Type Department Care Team ([facility] st Contact Info) Description 06/09/2023 Telephone [facility] MEDICINE [address] [place] [address] Gilbert Traore MD [address], [place] [phone] Nurse Triage Social History Tobacco Use Types Packs/Day Years Used Date Smoking Tobacco: Never Assessed Depression Answer Date Recorded Patient Health Questionnaire-9 [...] Access Q2 Not on file 04/14/2024 Comments Unknown Sex and Gender Information Value Date Recorded Sex Assigned at Female 03/04/2022 10:18 AM EDT Legal Sex Female 10:18 AM EDT Gender Identity Female 03/04/2022 10:18 AM EDT Sexual Orientation Choose not to disclose 2021 10:18 AM EDT documented as of this encounter Miscellaneous Notes * Telephone Encounter - Silvia Luo RN - 06/09/2023 10:21 AM EST Triage call Pt reports left shoulder pain which is restricting ability to dress self and daily activities. Pt is requesting results of recent shoulder xray taken 06/05/23. Pt is explained that there isjust degeneration of the joint but, no fractures, abnomal placement. Pt reports able to use arm from elbow down but, unable to raise arm. Pt is taking prescribed diclofenac without effect. Pt reportsis taking methadone as well has been taking this for years. Pt is advised to come to [facility] today at 1040am to be seen by provider and Pt agrees with disposition and home care reviewed. Insurance is verified as active prior to booking. Protocol Used: Shoulder Pain (Adult) Protocol-Based Disposition: See in Office or Video Visit Today Positive Triage Question: * Unable to use arm at all and because of shoulder pain or stiffness * All higher-acuity triage questions were negative Care Advice Discussed: * Reassurance and Education - Shoulder Pain * Pain Medicines * Pain Medicines - Extra Notes and Warnings * Reasons To Call Back - Chest pain or difficulty breathing occurs - Moderate pain (e.g., interferes with normal activities) lasts over 3 days - Mild pain lasts over 7 days - You become worse * Use Heat After 48 Hours for Pain * Heat to Area (Shower Option) * Telephone Encounter - Leodan Fermin - 06/09/2023 10:05 AM EST Symptom: Shoulder Pain - Not From Injury Outcome: Schedule an urgent appointment (within 1 hour) or talk to a nurse or provider soon Reason: Severe pain now, pt stated they are taking diclofenac (Cataflam) 50 MG tablet and feels as if medication is not working. The caller accepted this outcome documented in this encounter Plan of Treatment Upcoming Encounters Date Type Department Care Team (Late st Contact Info) Description 06/03/2024 2:00 PM EST Clinical Support [facility] DIABETES/NTRN [address] [place] [address] Janett Cortes, RD [address] [place] [address] documented as of this encounter Visit Diagnoses Not on filedocumented in this encounter Care Teams Rn Perinatal Relationship Specialty Start Date End Date Gilbert Traore MD [address] [place] [address] PCP - General Internal Medicine 09/13/19 documented as of this encounter
== END 2024-06-01 10:20 | disposition home or self-care (01) ==
PROVIDERS: PCP Internal Medicine; Visit Provider Surgery
DX: Z48.89 Encounter for other specified surgical aftercare (principal)
CPT/HCPCS: 99024

== ENCOUNTER 2024-07-05 09:37 | Outpatient (REF) | payer OTHER, SELFPAY ==
--- NOTE | ~2024-07-05 | MM_ITS ---
EXAMINATION: MM SCREENING DIGITAL BREAST TOMOSYNTHESIS, BILATERAL CLINICAL INFORMATION: Screening. Asymptomatic. COMPARISON: Mammography: Comparison is made with available priors TECHNIQUE: Digital breast mammography with tomosynthesis is performed in both the craniocaudal and mediolateral oblique views along with computer-aided detection (CAD). FINDINGS: The breasts are heterogeneously dense, which may obscure small masses (ACR BI-RADS breast composition Category c). Bilateral scattered silicone injections with areas of fat necrosis are not significantly changed from priors. There are no significant masses, abnormal calcifications, or other abnormalities. MM/MM tomosynthesis screening BI IMPRESSION: No mammographic evidence of malignancy. ASSESSMENT: BI-RADS BI-RADS 2 - Benign Findings RECOMMENDATION: Routine annual mammography screening. 1 year F/U This examination should not preclude the clinical evaluation of a suspicious palpable abnormality. This patient's information was entered into a reminder system with a target due date for their next mammogram. Electronically signed by: Clarice Szymanski DO 07/06/2024 04:49 PM DIANA VAZQUEZ
--- OUTSIDE RECORDS SUMMARY | 2024-07-05 10:39 | XMS_ITS | Encounter Summary ---
Author Organization [facility] Address [address] [place] [address] [address] [place] [address] Care Team Providers Care Mortar Mixer Name Role Phone Gilbert Traore MD Primary Care Prov ider Encounter Details Date Type Department Care Team ([facility] Contact Info) Description 08/25/2023 Orders Only [facility] MEDICINE [address], [place] [phone] Provider, Historical, Social History Tobacco Use Types [...] Upcoming Encounters Date Type Department Care Team ([facility] Contact Info) Description 07/15/2024 11:00 AM EDT Clinical Support [facility] DIABETES/NTRN [address] [place] [address] Janett Cortes, RD [address] [place], [place] [phone] documented as of this encounter Procedures Procedure Name Priority Date/Time Associated Diagnosis Comments HM COLONOSCOPY Routine 08/08/2016 9:19 AM EDT documented in this encounter Results * Hm Colonoscopy (08/08/2016 9:19 AM EDT) Historical Provider HEALTH MAINTENANCE Final Result documented in this encounter Visit Diagnoses Not on filedocumented in this encounter Care Teams Mortar Mixer Relationship Specialty Start Date End Date AnnGilbert Vidal MD [address] [place] [id number] PCP - General Internal Medicine 09/13/19 documented as of this encounter
--- OUTSIDE RECORDS SUMMARY | 2024-07-05 10:39 | XMS_ITS | Clinical Summary ---
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, encouraged low calorie intake, small meals cut [...] Encounters Date Type Department Care Team Description 06/24/2024 10:00 AM EST Clinical Support [facility] DIABETES/NTRN [address] [place] [address] Class 1 obesity due to excess calories without serious comorbidity with body mass index (BMI) of 31.0 to 31.9 in adult (Primary Dx) 06/24/2024 Travel 05/24/2024 Orders Only GENERIC EXTERNAL DATA DEPARTMENT Provider, Generic External Data 05/13/2024 9:00 AM EST Nutrition [facility] DIABETES/NTRN [address] [place] [address] Class 1 obesity due to excess calories with serious comorbidity and body mass index (BMI) of 31.0 to 31.9 in adult 05/13/2024 Travel 05/04/2024 Telephone [facility] MED & PEDS [address] [place] [address] Gilbert Traore MD Nurse Triage 04/23/2024 3:30 PM EST Office Visit [facility] [address] [place] [address] VanitaTenisha, AIR TABLE OPERATOR Epidermoid cyst (Primary Dx) 04/23/2024 Travel 04/23/2024 Telephone [facility] [address] [place] [address] Gilbert Traore MD Nurse Triage 04/23/2024 Telephone [facility] [address], [place] [phone] Gilbert Traore MD Results 04/14/2024 8:45 AM EST Office Visit [facility] [address] [place] [address] Gilbert Traore MD Primary hypertension (Primary Dx); Encounter for immunization; Onychomycosis; Dietary counseling; Exercise counseling; Class 1 obesity due to excess calories with serious comorbidity and body mass index (BMI) of 31.0 to 31.9 in adult 04/14/2024 Travel from Last 3 Months Immunizations Name Administration Dates Next Due Influenza, seasonal, injecta ble, preservative free 04/14/2024 Moderna Covid-19 Vaccine 12+ 04/06/2021, 08/03/2020,07/07/2020,2020 Moderna Covid-19 Vaccine 6+ Bivalent 04/30/2022 Tdap 04/14/2024 Family History Medical History Relation Name Comments stomach disease Mother Relation Name Status Comments Mother Social History Tobacco Use Types Packs/Day Years Used Date Smoking Tobacco: Former Cigarettes 1 36.2 S tarted: 05/05/1988 Passive Smoke Exposure: Never [...] Care Team (Late st Contact Info) Description 07/15/2024 11:00 AM EDT Clinical Support [facility] DIABETES/NTRN [address] [place], [place] [phone] Janett Cortes [address] [place] [address] Health Maintenance Due Date Last Done Comments CT Colonography 1970 FIT DNA/Cologuard 1970 FIT 1970 FOBT 1970 Sigmoidoscopy 1970 Hepatitis A Vaccines (1 of 2 - Risk 2-dose series) 09/09/1987 Hepatitis B Vaccines (1 of 3 - 19+ 3-dose series) 09/09/1987 Pneumococcal Vaccine: 50+ Years (1 of 2 - PCV) 09/09/1987 Zoster Vaccines (1 of 2) 2018 COVID-19 Vaccine ( season) 2024 04/30/2022, 04/06/2021, 08/03/2020, Additional history exists Cervical Cancer Screening 10/13/2024 HPV/Cotest 10/13/2024 10/14/2023 Pap Smear 10/13/2024 10/14/2023 Alcohol/Substance Use Screening 04/14/2025 04/14/2024 Depression Screening 04/14/2025 04/14/2024, 04/14/20 24 SDOH Screening 04/14/2025 04/14/2024 Tobacco Screening 04/23/2025 04/23/2024 Mammogram 07/03/2025 07/04/2023, 04/04, 09/20/2021 Colonoscopy 08/08/2026 08/08/2016 Colorectal Cancer Screening 08/08/2026 Lipid Panel 04/15/2029 04/15/2024, 02/10/2022, 08/07/2021 DTaP/Tdap/Td Vaccines (2 - Td or [...] 0 AM EST 05/25/2024 8:18 AM EST [facility] - 05/26/2024 12:27 PM EST ----- ------- Name: Rosa Isela,Yessica ? Age/Sex: 53/F ? : 1970 Unit#: [id number] ?? Attend Dr: Naresh Morrow MD ?Re05/24/24 ?Status: DEP REF ? Location: HO.LNP ?Disch: ? ----- ------- SPEC : [id number] ?RECD: 05/25/24 ? STATUS: ??SOUT ? REQ NUM: [id number] ? NESSA: 05/24/24-1030 ? SUBM DR: Naresh Morrow MD ? [...] Copies To: ?? Gilbert Traore MD ?? [facility] ?? [address] ?? [place] [address] ?? [phone] ?? Naresh Morrow MD ?? [facility] ?? [address] ?? [place] [address] ?? [phone] ?? [email or web address] ? CONTINUED ON NEXT PAGE ----- ------- Name: Yessica Natarajan ? Age/Sex: 53/F ? : 1970 Unit#: [id number] ?? Attend Dr: Naresh Morrow MD ?Re05/24/24 ?Status: DEP REF ? Location: HO.LNP ?Disch: ? ----- ------- SPEC : [id number] ?RECD: 05/25/24 ? STATUS: ??SOUT ? REQ NUM: [id number] ? NESSA: 05/24/24 ? SUBM DR: Naresh Morrow MD ? ENTERED: ??05/25/24 ?SP TYPE: Surgical ? OTHR DR: Gilbert Traore MD ORDERED: ??Gross Micro L3 ? ----- ------- Signed (signature on file) Ysabel Clint 05/26/24 1227 ? ----- ------- ? END OF REPORT ? us Generic External Data Provider LAB CYTOLOGY ORDE RABEMIGDIO Final Result Performing Organization Address [facility]/ZIP Co de Phone Number [facility] [address] [place] [phone] * TSH W/Reflex to FT4 (04/15/2024 9:18 AM EST) TSH reflex Free T4 2.74 0.32 - 4.0 uIU/mL [facility] Blood Venous blood specimen / Unknown 04/15/2024 9:18 AM EST 04/15/2024 2:20 PM EST Gilbert Ortiz MD LAB BLOOD ORDERABL ES Final Result Performing Organization Address [facility]/ZIP Co de Phone Number [facility] [address] [place] [address] [phone] * CBC auto differential (04/15/2024 9:18 AM EST) White Blood Count 5.5 4.8 - 10.8 X10*3/uL [facility] Red Blood Count 4.86 4.20 - 5.50 X10*6/uL [facility] Hemoglobin 14.2 12.0 - 16.0 g/dl [facility] Hematocrit 45.0 37.0 - 47.0 % [facility] Mean Corpuscular Volume 92.6 80.0 - 98.0 fL [facility] Mean Corpuscular Hemoglobin 29.2 27.0 - 33.0 pg [facility] Mean Corpuscular HGB Conc 31.6 31.0 - 35.0 g/dl [facility] Red Cell Distribution Width 13.3 11.0 - 16.0 % [facility] Platelet Count 184 160 - 400 X10*3/uL [facility] Mean Platelet Volume 10.0 9.4 - 12.3 fL [facility] Neutrophils Percent Auto 49.3 45 - 73 % [facility] Imm Gran Pct Auto 0.2 0.0 - 0.4 % [facility] Lymphocytes Percent Auto 36.9 20 - 40 % [facility] Monocytes Percent Auto 9.2 2 - 11 % [facility] Eosinophils Percent Auto 4.0 0 - 4 % [facility] Basophils Percent Auto 0.4 0 - 2 % [facility] NRBC Pct Auto 0.0 0.0 - 0.2 /100WBC [facility] Neutrophils Absolute Auto 2.7 2.0 - 8.3 x10*3/uL [facility] Imm Gran Abs Auto 0.01 0.00 - 0.03 X10*3/uL [facility] Lymphocytes Absolute Auto 2.0 1.2 - 4.9 X10*3/uL [facility] Monocytes Absolute Auto 0.5 0.1 - 1.2 X10*3/uL [facility] Eosinophils Absolute Auto 0.2 0.0 - 0.4 X10*3/uL [facility] Basophils Absolute Auto 0.0 0.0 - 0.2 X10*3/uL [facility] NRBC Abs Auto 0.000 0.0 - 0.012 X10*3/uL [facility] Blood Venous blood specimen / Unknown 04/15/2024 9:18 AM EST 04/15/2024 2:16 PM EST Gilbert Ortiz MD LAB BLOOD ORDERABL ES Final Result Performing Organization Address [facility] de Phone Number [facility] [address] [place] [phone] * Hemoglobin A1c (04/15/2024 9:18 AM EST) Hemoglobin A1c 5.4 <6.0 % [facility] Comment:Hemoglobin A1C Refer ence Range Adults: 4.8 - 6.0 % Non diabetic: < 6.0 % Goal: < 7.0 %Additional Action Suggested: > 8.0 %Note: Hemoglobin A1c results are invalid for patients with abnormal amounts of HbF. Blood transfusions may impact the HbA1c concentration in the patient sample. Estimated Average Glucose 108 mg/dL [facility] Comment:eAG = Estimated ave rage glucose which is %A1C expressed asaverage glucose, using the formula of the P1S-EdotjpzNpxcdoe Glucose study (ADAG), Diabetes Care, Vol.31,#8,Dec. 2007 Blood Venous blood specimen / Unknown 04/15/2024 9:18 AM EST 04/15/2024 2:16 PM EST Gilbert Ortiz MD LAB BLOOD ORDERABL ES Final Result Performing Organization Address [facility] Co de Phone Number [facility] [address] [place] [phone] * (ABNORMAL) Lipid Panel, Standard (04/15/2024 9:18 AM EST) Triglycerides 215(H) <150 mg/dL [facility] Comment:Desirable Triglyceri de: less than 150 mg/dLBorderline High Triglyceride 150-199 mg/dLHigh Triglyceride: 200-499 mg/dLVery High Triglyceride: greater than or equal to 5OO mg/dL Cholesterol 221(H) <200 mg/dL [facility] Comment:Desirable Cholestero l: less than 200 mg/dLBorderline High Cholesterol: 200-239 mg/dLHigh Cholesterol: greater than 239 mg/dL LDL Cholesterol Calculated 136(H) <100 mg/dL [facility] Comment:Desirable LDL: less than 100 mg/dLNear Optimal/Above Optimal LDL: 110- 129 mg/dLBorderline High LDL: 130-159 mg/dLHigh LDL: 160-189 mg/dLVery High LDL: greater than or equal to 190 mg/dL HDL Cholesterol 42 >40 mg/dL [facility] Comment:Desirable HDL: great er than 40 mg/dL Note: This HDL assay may give artificially low results in patients with liver disease. Blood Venous blood specimen / Unknown 04/15/2024 9:18 AM EST 04/15/2024 2:20 PM EST Gilbert Ortiz MD LAB BLOOD ORDERABL ES Final Result [facility] [address] [place] [phone] * (ABNORMAL) Comprehensive Metabolic Panel (04/15/2024 9:18 AM EST) Sodium 144 135 - 145 mmol/L [facility] Potassium 4.5 3.3 - 5.1 mmol/L [facility] Chloride 104 96 - 108 mmol/L [facility] Carbon Dioxide 34(H) 22 - 29 mmol/L [facility] Anion Gap 11(L) 12 - 20 [facility] Urea Nitrogen (BUN) 10 9 - 16 mg/dL [facility] Creatinine, Serum 0.66 0.5 - 1.4 mg/dL [facility] Estimated Glomerular Filt Rate >60 [facility] Comment:Chronic Kidney Disea se: Estimated GFR < 60 mL/min/1.37f0Gbxxit Kidney Disease: Estimated GFR < 15 mL/min/1.73m2 Glucose 77 60 - 115 mg/dL [facility] Calcium 9.4 8.4 - 10.2 mg/dL [facility] Bilirubin, Total 0.3 0.0 - 1.0 mg/dL [facility] Aspartate Amino Transferase 31 5 - 31 U/L [facility] Alanine Aminotransferase 21 0 - 31 U/L [facility] Total Protein 7.7 6.5 - 8.0 g/dL [facility] Albumin Level 3.9 3.5 - 5.0 g/dL [facility] Alkaline Phosphatase 68 39 - 117 U/L [facility] Blood Venous blood specimen / Unknown 04/15/2024 9:18 AM EST 04/15/2024 2:20 PM EST Gilbert Ortiz MD LAB BLOOD ORDERABL ES Final Result [facility] [address] [place] [phone] * (ABNORMAL) HPV mRNA E6/E7 w/Reflex to HPV Genotypes 16, 18/45 (10/14/2023 2:34 PM EDT) HPV nRNA E6/E7 Detected(A ) Not Detected [facility] Comment:Methodology: Transcr iption-Mediated AmplificationThis assay detects E6/E7 viral messenger RNA (mRNA) from 14high-risk HPV types (16,18,31,33,35,39,45,51,52,56,58,59,66,68).Cervical sources are required for HPV testing.If a vaginal source from a patient who has had atotal hysterectomy with removal of cervix wassubmitted, please contact the testing laboratoryfor alternative testing options.For additional information, please refer tohttp://education.bContext/faq/KGZ270i5(This link if provided for information/educational purposes only.)THIS TEST WAS PERFORMED AT:[facility] [id number] [place] [address]FELQISTEPHANIE HOFFMANN MD HPV 16 RNA NOT DETECTED NOT DETECTED [facility] HPV 18/45 RNA NOT DETECTED NOT DETECTED [facility] Comment:Methodology: Transcr iption Mediated AmplificationCervical sources are required for HPV testing.If a vaginal source from a patient who has had atotal hysterectomy with removal of cervix wassubmitted, please contact the testing laboratoryfor alternative testing options.THIS TEST WAS PERFORMED AT:[facility] [id number] [place] [address]DGDBFEFREN HOFFMANN MD 10/14/2023 2:34 PM EDT 10/15/2023 11:18 AM EDT us Bridgette Dowell MD LAB CYTOLOGY ORDERABLES Final Result [facility] [address] [place] [phone] * Pap Smear (10/14/2023 9:30 AM EDT) Swab Vaginal structure / Unknown 10/14/2023 9:30 AM EDT 10/15/2023 6:00 AM EDT Narrative [facility] - 11/10/2023 11:17 AM EDT ----- ------- Name: Yessica Natarajan ? Age/Sex: 53/F ? : 1970 Unit#: [id number] ?? Attend Dr: Bridgette Dowell MD ?Re10/14/23 ?Status: DEP REF ? Location: [facility] ? Disch: ? ----- ------- SPEC : [id number] ?RECD: 10/15/23 ? STATUS: ??SOUT ? REQ NUM: [id number] ? NESSA: 10/14/23 ? SUBM DR: Bridgette [...] Not Detected ? HPV testing performed by [facility], [place], [place]. ??See reference laboratory ?? portion of the EMR for entire report. ?Clinical Information LMP: 05/05/2019 Previous PAP test: Unknown date, unknown findings. Post menopausal. ? Material Received ?? ThinPrep-Cervical ----- ------- Signed (signature on file) Marlena Cayetano Mendoza 11/10/231116 ? ----- ------- ? END OF REPORT ? us Bridgette Dowell MD LAB CYTOLOGY ORDERABLES Final Result [facility] [address] [place] [phone] [phone] * BI Mammogram Screening Tomosynthesis Bilateral (07/04/2023 9:20 AM EST) Anatomical Region Laterality Modality Breast Bilateral Mammography 07/04/2023 9:20 AM EST Narrative 07/20/2023 10:20 AM EDT ? [facility] [address] ?[place] [address] ? Mammography Report ? Signed ? Patient: Basora,Yessica ?MR#: [id number] ? : 1970 ?Acct:[id number] ? Age/Sex: 52 / F ?ADM Date: 07/04/23 ? Loc: HO.MAMMO ? Attending Dr: Gilbert Ortiz MD ? Ordering Physician: Gilbert Traore MD ?Res ?? ults: 2Benign Findings ? Date of Service: 07/04/23 ?Follow Up: 1 Year From Orig ?? inal Mammogram ? Procedure(s): MM tomosynthesis screening BI ?? Accession Number(s): [id number] ? cc: Gilbert Traore MD ? EXAMINATION: [...] of benign calcification with peripheral ?? calcification traveling representative of injection granulomata from the ?? [...] their next mammogram. ? Dictated By: ?Becky Dwoell MD ? Signed By: ?<Electronically signed by Becky Dowell MD in OV> ? 07/20/23 1016 ? DD/ 0920 ? TD/TT: ? Pick Up Attendant: ? Procedure Note Clara, Image - 07/20/2023 [facility] [address] [place] [address] [place] [address] Mammography Report Signed Patient: Elisha Natarajan#: [id number] : 1970Acct:[id number] Age/Sex: 52 / FADM Date: 07/04/23 Loc: HO.MAMMO Attending Dr: Gilbert Ortiz MD Ordering Physician: Gilbert Traore ults: 2Benign Findings Date of Service: 07/04/23Follow Up: 1 Year From [facility] Mammogram Procedure(s): MM tomosynthesis screening BI Accession Number(s): [id number] cc: Gilbert Traore MD EXAMINATION: MM SCREENING [...] areas of benign calcification with peripheral calcification traveling representative of injection granulomata from the patient's [...] in OV> 07/20/23 1016 DD/ 0920 TD/TT: Pick Up Attendant: Gilbert Ortiz MD [facility] BI PROCEDURES Edited Result - Final * HIV-1 RNA, Quantitative, Real-Time PCR with Reflex to Genotype (RTI, PI, Integrase) (06/10/2022 11:13 AM EST) HIV 1 RNA, QN PCR NOT DETECTED copies/mL [facility] [place], HIV 1 RNA, QN PCR NOT DETECTED Log copies/mL [facility], Comment: REFERENCE RANGE: NOT DETECTED copies/mL ?NOT DETECTED ??Log copies/mL This test was performed using Real-Time Polymerase Chain Reaction. Reportable range is 20 to 10,000,000 copies/mL (1.30-7.00 Log copies/mL). 06/10/2022 11:1 3 AM EST 06/10/2022 11:14 AM EST Narrative [facility] - 06/13/2022 9:00 AM EST FASTING:NO FASTING: NO Gilbert Ortiz MD LAB BLOOD ORDERABL ES Final Result [facility] [address], [place] [address] [facility] [facility], [address] [place] [address] * Hm Colonoscopy (08/08/2016 9:19 AM EDT) Historical Provider HEALTH MAINTENANCE Final Result from Last 3 Months or Most Recently Relevant to Health Maintenance Insurance [place] [address] , [address] [place] [address] Care Teams Director Of Medical Services Relationship Specialty Start Date End Date Gilbert Traore MD [address] [place] [phone] PCP - General Internal Medicine 09/13/19
--- OUTSIDE RECORDS SUMMARY | 2024-07-05 10:39 | XMS_ITS | Encounter Summary ---
Author Organization [employer] Address [address] [place] [address] 7 [place] [address] Care Team Providers Care Water Meter Mechanic Name Role Phone Gilbert Traore MD Primary Care Prov ider Encounter Details Date Type Department Care Team ([facility] Contact Info) Description 11/03/2023 Orders Only [facility] MED & PEDS [address] [place], [place] [phone] Gilbert Traore MD [address] [place] [address] Simple chronic bronchitis (CMS/HCC) Social History Tobacco [...] Department Care Team (Late Contact Info) Description 07/15/2024 11:00 AM EDT Clinical Support [facility] DI[facility]/NTRN [address] [place], [place] [phone] [address] [place] [address] documented as of this encounter Visit Diagnoses Diagnosis Simple chronic bronchitis (CMS/HCC) Simple chronic bronchitis documented in this encounter Care Teams Water Meter Mechanic Relationship Specialty Start Date End Date Gilbert Traore MD [address] [place] [phone] PCP - General Internal Medicine 09/13/19 documented as of this encounter
--- OUTSIDE RECORDS SUMMARY | 2024-07-05 10:39 | XMS_ITS | Encounter Summary ---
Author Organization [employer] Address [address] [place] [address] [place] [address] Care Team Providers Care Petroleum Engineer Name Role Phone Gilbert Traore MD Primary Care Prov ider Reason for Visit * Reason Comments Med Change Request Encounter Details Date Type Department Care Team ([facility] Contact Info) Description 01/16/2023 Refill [facility] MED & PEDS [address] [place], [place] [phone] Gilbert Traore MD [address] [place], [place] [phone] Simple chronic bronchitis (CMS/HCC) Social History Tobacco [...] Upcoming Encounters Date Type Department Care Team ([facility] Contact Info) Description 07/15/2024 11:00 AM EDT Clinical Support [facility] DIABETES/NTRN [address] [place], [place] [phone] Janett Cortes, RD [address] [place] [address] documented as of this encounter Visit Diagnoses Diagnosis Simple chronic bronchitis (CMS/HCC) Simple chronic bronchitis documented in this encounter Care Teams Petroleum Engineer Relationship Specialty Start Date End Date AnnGilbert Vidal MD [address] [place] [address] PCP - General Internal Medicine 09/13/19 documented as of this encounter
--- OUTSIDE RECORDS SUMMARY | 2024-07-05 10:39 | XMS_ITS | Encounter Summary ---
Author Organization [employer] Address [address] [facility] 7t [place] [address] Care Team Providers Care Concrete Form Setter And Finisher Name Role Phone Gilbert Traore MD Primary Care Prov ider Reason for Visit * Reason Comments Med Change Request Encounter Details Date Type Department Care Team ([facility] Contact Info) Description 10/14/2023 Refill [facility] MED & PEDS [address] [place] [address] Bridgette Dowell MD [address] [place] [address] Social History Tobacco Use Types Packs/Day Years [...] Description 07/15/2024 11:00 AM EDT Clinical Support [facility] DIABETES/NTRN [address] [place] [address] Janett Cortes, RD [address] [place] [address] documented as of this encounter Visit Diagnoses Not on filedocumented in this encounter Care Teams Concrete Form Setter And Finisher Relationship Specialty Start Date End Date Gilbert Traore MD [address] [place] [address] PCP - General Internal Medicine 09/13/19 documented as of this encounter
--- OUTSIDE RECORDS SUMMARY | 2024-07-05 10:39 | XMS_ITS | Encounter Summary ---
Author Organization [employer] Address [address] [facility] 7 [place] [address] Care Team Providers Care Leadite Man Name Role Phone Gilbert Traore MD Primary Care Prov ider Reason for Visit * Reason Onset Date Comments Results 04/23/2024 Encounter Details Date Type Department Care Team ([facility] Contact Info) Description 04/23/2024 Telephone [facility] MED & PEDS [address] [place] [address] Gilbert Traore MD [address] [place] [address] Results Social History Tobacco Use Types Packs/Day [...] blood work Date when done: 04/14/24 Facility: [facility] documented in this encounter Plan of Treatment Upcoming Encounters Date Type Department Care Team (Late st Contact Info) Description 07/15/2024 11:00 AM EDT Clinical Support [facility] DIABETES/NTRN [address] [place] [address] [place] [address] documented as of this encounter Visit Diagnoses Not on filedocumented in this encounter Additional Health Concerns Assessment Noted Time PHQ-9 Depression Total Score: 0 04/14/20 9:02 AM EST documented as of this encounter Care Teams Leadite Man Relationship Specialty Start Date End Date Gilbert Traore MD [address] [place] [address] PCP - General Internal Medicine 09/13/19 documented as of this encounter
--- OUTSIDE RECORDS SUMMARY | 2024-07-05 10:39 | XMS_ITS | Encounter Summary ---
Author Organization [employer] Address [address] [facility] [address] [facility] [address] 7[address] [place] [address] Care Team Providers Care Button Pusher Name Role Phone Gilbert Traore MD Primary Care Prov ider Encounter Details Date Type Department Care Team (Latest Contact Info) Description 06/24/2024 10:00 AM EST Clinical Support [facility] CHC DIABETES/NTRN [address] [place] [address] Janett Cortes, RD [address] [place] [address] Class 1 obesity due to excess calories without serious comorbidity with body mass index (BMI) of 31.0 to 31.9 in adult (Primary Dx) Social History Tobacco Use Types Packs/Day Years [...] AM EDT documented as of this encounter Progress Notes * Janett Cortes, RADAMES - 06/24/2024 10:00 AM EST In Person Visit Medical Diagnosis: E66.811, E66.09, Z68.31 Class 1 obesity due to excess calories with serious comorbidity and body mass index (BMI) of 31.0 to 31.9 in adult Anthropometrics: On 05/13/2024, Ht: 4' 10 (1.473 m), Wt:155 lb 3.2 oz (70.4 kg), BMI: Body mass index is 32.44 kg/m??. Assessment: Patient (Pt) accepted nutrition education assessment appointment with RD. RD is using the weight taken on 05/13/2024. Today, RD gave the first half of the second appointment. RD and Pt didn't finish the second half ofFirst appointment. Once the second half of First appointment is finished, RD will fill in nutritiondiagnosis, nutrition Intervention, goals, Tailored made meal plan, monitoring and evaluation will be put into Pt's chart here. Thus, all is to be followed by Pt with their agreement. The second half of First nutrition education assessment appointment is scheduled in the second weekof July 2024. Until then, RD highly suggested that all drinks be sugar free/ diet. Pt agreed to dothis. Food Allergies: NKFA Exercise: Pt has not been doing any exercise. Today, Pt is starting easy yoga. Food Intolerance: None mentioned Food Preferences: Iced coffee with caramel machiotto drink mix, ice tea from Snapple, green tea w/ sugar, croissants,wh. Breads, Iam noodles, pineapple, kiwi, blueberries, peanuts, raisins, M&M's, Inocencio Donutscoffee, green tea, Turkmen yogurt, seafood salad, egg salad, turkey, Filipino cheese, raza, scallops, steak tips, mashed potatoes, tomatoes, cucumber, lettuces, coffee Food Dislikes: Didn't say Frequency of Eating Out/ Restaurant: 3-4 x weekly Who Cooks?: Patient How much caffeine?: Coffee: 1-2 cups day; tea: 4+ cups How much sugary beverages?: Tea, 4 cups/ day and Coffee, 1-2 cups/ day Diet History: This is a copy of 05/13/2024 intake being used for today's appointment. Breakfast: The other half of sandwich eaten at dinner Bread, w. Wheat: 1 slice [place]: one slice Cheese, Filipino: 1/2 slice Snapple ice tea regular sweetened with sugar: 2 cups Or, Fruit- pineapple: 1/2 -1 and/or kiwi: one and/ or blueberries: 1/2 cup Snack: Water: 1/2 cup Lunch: Chobani Turkmen yogurt: 5 oz. Snack: none Dinner: Iced [...] be filled in. Provider: Janett Cortes RD, LDN documented in this encounter Plan of Treatment Upcoming Encounters Date Type Department Care Team (Late st Contact Info) Description 07/15/2024 11:00 AM EDT Clinical Support [facility] DIABETES/NTRN [address] [place] [address] [place] [address] documented as of this encounter Visit Diagnoses Diagnosis Class 1 obesity due to excess calories without serious comorbidity with body mass index (BMI) of 31.0 to 31.9 in adult- Primary documented in this encounter Additional Health Concerns Assessment Noted Time PHQ-9 Depression Total Score: 0 04/14/20 24 9:02 AM EST documented as of this encounter Care Teams Button Pusher Relationship Specialty Start Date End Date Gilbert Traore MD [address] [place] [address] PCP - General Internal Medicine 09/13/19 documented as of this encounter
--- OUTSIDE RECORDS SUMMARY | 2024-07-05 10:39 | XMS_ITS | Encounter Summary ---
Author Organization [employer] Address [address] [facility] 7t [place] [address] Care Team Providers Care Core Blower Name Role Phone Gilbert Traore MD Primary Care Prov ider Encounter Details Date Type Department Care Team (Latest Contact Info) Description 06/24/2024 Travel Social History Tobacco Use Types Packs/Day [...] t he electric, gas, oil or water [employer] threatened to shut off services in your [...] Description 07/15/2024 11:00 AM EDT Clinical Support [facility] DIABETES/NTRN [address] [place] [address] Janett Cortes, RD [address] [place] [address] documented as of this encounter Visit Diagnoses Not on filedocumented in this encounter Additional Health Concerns Assessment Noted Time PHQ-9 Depression Total Score: 0 04/14/20 24 9:02 AM EST documented as of this encounter Care Teams Core Blower Relationship Specialty Start Date End Date Gilbert Traore MD [address] [place] [address] PCP - General Internal Medicine 09/13/19 documented as of this encounter
--- OUTSIDE RECORDS SUMMARY | 2024-07-05 10:39 | XMS_ITS | Clinical Summary ---
Author Organization [facility] it Address [address] [place] [address] Care Team Providers Care Superintendent Building Name Role Phone Dara Leiva MD Primary Care Provider [phone] Social History Tobacco Use Types Packs/Day Years Used Date Smoking Tobacco: Never Assessed Comments Unknown Sex and Gender Information Value Date Recorded Sex Assigned at Not on file Legal Sex Female 10:48 AM EST Gender Identity Not on file Sexual Orientation Not on file Plan of Treatment Health Maintenance Due Date Last Done Comments Breast Cancer Screening 1968 DTaP,Tdap,and Td Vaccines (1 - Tdap) 09/09/1987 Hepatitis A Vaccines (1 of 2 - Risk 2-dose series) 09/09/1987 Hepatitis B Vaccines (1 of 3 - 19+ 3-dose series) 09/09/1987 Cervical Cancer Screening: P ap Smear 1989 Pneumococcal Vaccine: 50+ Ye ars (1 of 1 - PCV) 2018 Zoster Vaccines (1 of 2) 2018 Colorectal [...] patient's age to complete this topic Meningococcal B Vacine Aged Out No lo nger eligible based on patient's age to complete [...] age to complete this topic Care Teams Superintendent Building Relationship Specialty Start Date End Date Dara Leiva MD [address] [place] [address] PCP - General Internal Medicine 06/05/17
== END 2024-07-05 09:38 | disposition home or self-care (01) ==
LOC: HO.MAMMO 09:37
PROVIDERS: PCP Internal Medicine; Visit Provider Internal Medicine
DX: Z12.31 Encounter for screening mammogram for malignant neoplasm of breast (principal)
CPT/HCPCS: 77063; 77067

== ENCOUNTER → 2024-07-05 09:45 | Outpatient (BNV) | payer OTHER, SELFPAY | PROVIDERS: PCP Internal Medicine; Visit Provider Internal Medicine | DX: Z12.31 Encounter for screening mammogram for malignant neoplasm of breast (principal) | CPT/HCPCS: 77063; 77067 ==

== ENCOUNTER 2024-12-07 10:33 | Outpatient (REF) | payer OTHER, SELFPAY ==
--- NOTE | ~2024-12-07 | XR_ITS ---
EXAMINATION: XR CHEST CLINICAL INFORMATION: cough x 1 week, hx copd COMPARISON: 08/21/2023, 08/22/2021. TECHNIQUE: 2 views of the chest were obtained. FINDINGS: The cardiac, hilar, and mediastinal contours are normal. The lungs are well inspired. There is no consolidation. There is mild prominence of the bronchial markings, suggesting bronchial thickening. Chronic scarring in the right mid to upper lung. There is no pneumothorax or pleural effusion. There is no focal osseous or soft tissue abnormality. XR/XR chest 2V IMPRESSION: Mild bronchial thickening again noted. No focal pneumonia appreciated. Electronically signed by: Ravinder Diego MD 12/07/2024 11:18 AM EDT
--- OUTSIDE RECORDS SUMMARY | 2024-12-07 11:14 | XMS_ITS | Encounter Summary ---
Author Organization [employer] Address [address] [facility] 7 [place] [address] Care Team Providers Care Manager Port Name Role Phone Gilbert Traore MD Primary Care Prov ider Encounter Details Date Type Department Care Team ([facility] Contact Info) Description 11/03/2023 Orders Only [facility] CHC MED & PEDS [address] [place], [place] [id number] Gilbert Traore MD [address] [place] [address] Simple chronic bronchitis (CMS/HCC) Social History Tobacco Use Types Packs/Day Years Used Date Smoking Tobacco: Former Cigarettes 1 36.6 S tarted: 05/05/1988 Passive Smoke Exposure: Never [...] as of this encounter Plan of Treatment Not on file documented as of this encounter Visit Diagnoses Diagnosis Simple chronic bronchitis (CMS/HCC) Simple chronic bronchitis documented in this encounter Care Teams Manager Port Relationship Specialty Start Date End Date Gilbert rTaore MD [address] [place], [place] [id number] PCP - General Internal Medicine 09/13/19 documented as of this encounter
--- OUTSIDE RECORDS SUMMARY | 2024-12-07 11:14 | XMS_ITS | Clinical Summary ---
Author Organization [facility] it Address [address] [place] [address] Care Team Providers Care Companion Caregiver Name Role Phone Dara Leiva MD Primary Care Provider [phone] Social History Tobacco Use Types Packs/Day Years [...] 2) 2018 Colorectal Cancer Screening: Colonoscopy 04/02/2022 HIV Screening 04/02/2022 Hepatitis C Screening 04/02/2022 Social Influencers of Health Screening 04/02/2022 COVID-19 Vaccine (1 - 2023-2 5 season) 2024 Depression Screening 05/05/2024 Influenza Vaccine (#1) 2025 HIB Vaccines Aged Out No longer eligi [...] age to complete this topic Meningococcal B Vaccine Aged Out No l onger eligible based on patient's age to complete this topic RSV Immunization Patients Un rosetta 20 months Aged Out No longer eligible b ased on patient's age to complete this topic Varicella Vaccines Aged Out No longer eligible based on patient's age to complete this topic Care Teams Companion Caregiver Relationship Specialty Start Date End Date Dara Leiva MD [address] [place] [address] PCP - General Internal Medicine 06/05/17
== END 2024-12-07 10:34 | disposition home or self-care (01) ==
LOC: HO.HHCX 10:33
PROVIDERS: Visit Provider Family Medicine
DX: J44.1 Chronic obstructive pulmonary disease with (acute) exacerbation (principal)
CPT/HCPCS: 71046

== ENCOUNTER → 2024-12-07 10:34 | Outpatient (BNV) | payer OTHER, SELFPAY | PROVIDERS: Visit Provider Radiology Diagnostic Radiology | DX: R05.3 Chronic cough (principal) | CPT/HCPCS: 71046 ==

== ENCOUNTER 2025-01-20 00:01 | Inpatient (IN) | payer OTHER, SELFPAY ==
[2025-01-20] VITALS (9 sets, daily range): BP systolic 116–176; BP diastolic 64–100; PULSE 78–91; RESP 16–24; TEMP 36.2–36.8; O2SAT 73–96; BMI 23.8; BMI 26.5
--- NOTE | 2025-01-20 | ECG_ITS ---
Test Reason : CARDIOMEGALY Blood Pressure : */* mmHG Vent. Rate : 95 BPM Atrial Rate : 95 BPM P-R Int : 146 ms QRS Dur : 74 ms QT Int : 346 ms P-R-T Axes : 79 55 7 degrees QTcB Int : 434 ms Normal sinus rhythm Nonspecific T wave abnormality Abnormal ECG When compared with ECG of 21-Aug-2023 10:11, T wave inversion now evident in Inferior leads T wave inversion more evident in Anterior leads Referred By: Josie Levy Electronically Signed By:
--- NOTE | ~2025-01-20 | CT_ITS ---
EXAMINATION: CT CHEST WITHOUT CONTRAST CLINICAL INFORMATION: Shortness of breath, abnormal chest x-ray. COMPARISON: No prior CT. Correlation made with chest radiograph earlier same day. TECHNIQUE: Multidetector volumetric CT imaging of the chest was done. Axial MIP volume rendering provided. Sagittal and coronal reformatted images were obtained. This CT examination was performed using dose optimization techniques as appropriate, variously including the following: *Automated exposure control *Adjustment of mA and/or kV according to patient size (this includes techniques or standardized protocols for targeted exams where dose is matched to indication/reason for exam; i.e. extremities or head) *Use of iterative reconstruction technique FINDINGS: NODULES: There is a 4 mm nodule in the posterior left upper lobe (series 4, image 28). There is a 5 mm nodule in the left upper lobe laterally (series 4, image 38). There is a 3 mm nodule in the subpleural left lower lobe laterally (series 4, image 83). There is a 3 mm nodule in the superior segment right lower lobe (series 4, image 50). There is a 4 mm subpleural nodule in the anterior right middle lobe (series 4, image 65). There are a few scattered additional 2-3 mm nodules in both lungs. LUNGS: There is mild centrilobular emphysema. There is mild smooth interlobular septal thickening, suggestive of mild interstitial pulmonary edema. No pleural effusions. There are mild foci of scarring in both lungs. There is discoid atelectasis in the left base laterally. The small airways appear mildly thickened diffusely. There is no pneumothorax. The segmental pulmonary arteries appear engorged. MEDIASTINUM: The partially imaged thyroid is normal. There is no lymphadenopathy within the mediastinum. The aorta is nonaneurysmal. The main pulmonary artery is markedly enlarged, measuring diameter of 4.1 cm, consistent with pulmonary arterial hypertension. The heart is mildly enlarged. There is no pericardial effusion. The central airways are patent. Esophagus is unremarkable in appearance. CORONARY ARTERY CALCIFICATION: Mild AXILLA/CHEST WALL: No abnormal lymph nodes or masses. Innumerable calcifications in both breasts. There is left greater than right dermal thickening of the breasts, nonspecific. Would correlate with recent mammography of 07/05/2024. There is mild anasarca. This is likely related to CHF. UPPER ABDOMEN: Unenhanced upper abdominal contents demonstrate no abnormalities. OSSEOUS STRUCTURES: There is no suspicious lytic or blastic bone lesion. CT/CT chest wo IV con IMPRESSION: 1. Mild centrilobular emphysema with evidence of mild interstitial pulmonary edema. Notable enlargement of the central and segmental pulmonary arteries is consistent with pulmonary arterial hypertension. 2. There are scattered pulmonary nodules, largest measures up to 5 mm in the left upper lobe. Recommend 1-year interval CT follow-up in a high-risk patient. 3. There is thickening of the small airways which can be seen with interstitial pulmonary edema, although acute/chronic bronchitis is an additional consideration. 4. There are ancillary findings as discussed in the body of the report. Electronically signed by: Ravinder Diego MD 01/21/2025 10:55 AM EDT
--- NOTE | ~2025-01-20 | XR_ITS ---
CLINICAL HISTORY: sob 2 view chest x-ray Comparison: CR/SR - XR CHEST 2 VIEWS - 12/07/24 10:54 EDT Findings: Central pulmonary vascular prominence. Minor linear atelectasis or scar at the right upper lung. No consolidation or effusion. Heart size at the upper limits. No acute fracture. IMPRESSION: Cardiomegaly with probable volume overload. This document has been electronically signed by: Delmis Sylvester MD on 01/20/2025 02:20:58
--- NOTE | ~2025-01-20 | XR_ITS ---
EXAMINATION: XR CHEST 2 VIEWS HISTORY: COPD exacerbation COMPARISON: Comparison is made with the prior examination dated 01/20/2025. FINDINGS: PA and lateral views of the chest are submitted. Again seen is mild prominence of the pulmonary vasculature. There is scarring in the right upper lobe. There is no pleural effusion or pneumothorax. The heart is top normal in size. The bones are intact. XR/XR chest 2V IMPRESSION: Borderline cardiomegaly. Mild pulmonary vascular prominence suggestive of congestion. Electronically signed by: Hector So MD 01/21/2025 08:37 AM EDT
--- NOTE | 2025-01-20 00:17 | PC.NURSE ---
MD at bedside for primary eval, aware of RA O2 sat during triage.
--- NOTE | 2025-01-20 00:19 | ED.SOB ---
HPI - SOB/Dyspnea General Chief Complaint: Dyspnea Stated Complaint: diff breathing Time Seen by Provider: 01/20/25 00:15 Source: patient Mode of arrival: ambulatory History of Present Illness ED Provider: Yolanda NELSON Narrative: 54-year-old female who reports history of COPD, recently started smoking again, reports chills and worsening shortness breath over the past couple of hours she otherwise denies any GI or symptoms and has never had to use oxygen supplementation at home. She is on a methadone program. Related Data Home Medications ?Medication ?Instructions ?Recorded ?Confirmed albuterol sulfate 90 mcg/actuation 2 puff inhalation QID PRN dyspnea 08/22/21 06/01/24 aerosol inhaler (Ventolin HFA) tiotropium bromide 18 mcg capsule 1 cap inhalation DAILY 08/22/21 06/01/24 with inhalation device (Spiriva with HandiHaler) terbinafine HCl 250 mg tablet 250 mg PO DAILY 05/10/24 06/01/24 methadone 10 mg/mL oral concentrate 60 mg PO DAILY 05/24/24 06/01/24 Previous Rx's ?Medication ?Instructions ?Recorded guaifenesin 100 mg/5 mL oral liquid 100 mg (5 mL) PO Q4H PRN Cough 08/24/23 #250 mL ibuprofen 800 mg tablet 800 mg PO Q8H PRN pain #30 tabs 05/24/24 Allergies Allergy/AdvReac Type Severity Reaction Status Date / Time No Known Allergies Allergy Verified 01/20/25 00:16 Review of Systems Review of Systems: There are no positives and negatives as stated in the HPI COUNTS INCLUDE 234 BEDS AT THE [facility] Past Medical History Source: nursing notes reviewed Medical History Epidermal inclusion cyst (05/24/24) Abnormal EKG Acute respiratory failure COPD exacerbation Lung collapse COPD (chronic obstructive pulmonary disease) Surgical History H/O: History of tracheostomy Family History Family History Mother No problems noted. Social History Social History Household Members: None Housing: Apartment Do you presently have visiting nurse or other home services: No Alcohol intake: current Alcohol intake frequency: a few times a month Patient Tobacco Use Status: Former Tobacco user Tobacco use type: Cigarette Cigarette Packs Per Day: 1.5 Cigarettes Per Day: 30.0 Smoked in Last 30 Days: Yes Use of substances other than those prescribed or required for medical reasons: Yes Substance Use Type: Other Substance Use Type Other:: methadone Substance Use Frequency: Daily Advance Directives: No Advance Directives Information Provided: Yes Do you have a plan to hurt others: No Plan Patient : No service: No Current occupational status: employed 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 GENERAL: Well developed, well nourished, in no acute distress. HEAD: Normocephalic/atraumatic EYES: PERRLA, EOMI EARS: Ext canals without abnormality, TMs non-bulging and non-erythematous NOSE: Nares patent bilateral OROPHARYNX: no oral lesions noted, posterior pharynx clear and non-erythematous without noted tonsillar enlargement/erythema/exudates NECK: Supple, no adenopathy LUNGS: Mild tachypnea, increased work of breathing, decreased breath sounds. SpO2<73> placed on 4 L nasal cannula with good response to 93% CARDIOVASCULAR: Regular rate and rhythm without noted murmurs, no JVD or lower extremity edema. ABDOMEN: Soft, non-tender, non-distended with bowel sounds. MUSCULOSKELETAL: No tenderness, deformities, or effusions noted on gross inspection. EXTREMITIES: No cyanosis, clubbing or edema. SKIN: Inspection of the skin reveals no rashes NEUROLOGIC: Alert and oriented x 4. Strength and sensation to light touch were grossly intact x 4. Vital Signs: Vital Signs: Last Vital Signs Temp 98.3 F 01/20/25 00:16 Pulse 80 01/20/25 00:39 Resp 17 01/20/25 00:39 BP 176/100 H 01/20/25 00:16 Pulse Ox 96 01/20/25 00:17 O2 Del Method Nasal Cannula 01/20/25 00:17 O2 Flow Rate 4 01/20/25 00:17 BMI result Body Mass Index 23.8 Medications Administered Discontinued Medications Generic Name Dose Route Start Last Admin Trade Name Freq PRN Reason Stop Dose Admin Albuterol Sulfate 2.5 mg/ 0 mg 01/20/25 00:33 01/20/25 00:38 Albuterol/Ipratropium 3 ml INHALE 01/20/25 00:34 1 dose ONCE ONE Administration Methylprednisolone Sodium Succinate 80 mg 01/20/25 00:17 01/20/25 00:42 Methylprednisolone Sod Succ 125 Mg/2 Ml Vial IVPUSH 01/20/25 00:18 80 mg ONCE ONE Administration Medical Decision Making Medical Decision Making [facility] Narrative: 0021: 54-year-old female with history and clinical presentation, DDX: COPD exacerbation, pneumonia, viral illness, lower clinical suspicion for ACS. Intervention: 80 mg Solu-Medrol, initiated ED Bronch Protocol.....Patient is otherwise afebrile, no leukocytosis, no indication for antibiotics at this time. 0117: I reviewed and interpreted all investigations and there is no leukocytosis, anemia, patient has chronic thrombocytopenia. ABG demonstrates hypercapnia with pCO2 68, no respiratory acidosis and evidence of compensation. There is no demonstrated BRANDON/electrolyte or liver enzyme derangements. I will reach out and discuss the case with inpatient hospitalist for admission. My interpretation of viral testing as it is negative for COVID-19/RSV/flu. My interpretation of the plain chest film, two view, there is no acute evidence of infiltrate or venous congestion. This was compared to prior two-view chest x-ray. Differential Diagnosis Differential Diagnoses: The differential diagnosis associated with the presentation includes See above Admission/Observation Consideration of admission/observation: Escalation of care including admission/observation considered See above Consult Healthcare Provider Management of the patient was discussed with: Hospitalist See above Lab Data MDM Lab Attestation statement: I reviewed the patient's lab results. See above 01/20/25 00:34 01/20/25 00:34 Labs: Lab Results 01/20/25 01/20/25 01/20/25 Range/Units 00:34 00:35 00:45 WBC 6.6 (4.8-10.8) X10*3/uL RBC 5.24 (4.20-5.50) X10*6/uL Hgb 15.8 (12.0-16.0) g/dl Hct 48.0 H (37.0-47.0) % MCV 91.6 (80.0-98.0) fL MCH 30.2 (27.0-33.0) pg MCHC 32.9 (31.0-35.0) g/dl RDW 14.7 (11.0-16.0) % Plt Count 155 L (160-400) X10*3/uL MPV 10.1 (9.4-12.3) fL Immature Gran % (Auto) 0.3 (0.0-0.4) % Neut % (Auto) 63.3 (45-73) % Lymph % (Auto) 27.9 (20-40) % [place] % (Auto) 6.0 (2-11) % Eos % (Auto) 2.3 (0-4) % Baso % (Auto) 0.2 (0-2) % Lymph # (Auto) 1.9 (1.2-4.9) X10*3/uL [place] # (Auto) 0.4 (0.1-1.2) X10*3/uL Eos # (Auto) 0.2 (0.0-0.4) X10*3/uL Baso # (Auto) 0.0 (0.0-0.2) X10*3/uL Abs Immat Gran (auto) 0.02 (0.00-0.03) X10*3/uL Absolute Neuts (auto) 4.2 (2.0-8.3) x10*3/uL Absolute Nucleated RBC 0.000 (0.0-0.012) X10*3/uL Nucleated RBC % (auto) 0.0 (0.0-0.2) /100WBC VBG pH 7.34 (7.32-7.43) VBG pCO2 68 mmHg VBG pO2 43 mmHg VBG HCO3 37 H (22-26) mmol/L VBG O2 Saturation 69.0 % VBG Base Excess 8.3 mmol/L Sodium 143 (135-145) mmol/L Potassium 4.0 (3.3-5.1) mmol/L Chloride 101 (96-108) mmol/L Carbon Dioxide 34 H (22-29) mmol/L Anion Gap 12 (12-20) BUN 9 (9-16) mg/dL Creatinine 0.63 (0.5-1.4) mg/dL Estim Creat Clear Calc 86.0 Estimated GFR > 60 Random Glucose 102 (60-115) mg/dL Lactic Acid 1.0 (0.5-2.0) mmol/L Calcium 9.2 (8.4-10.2) mg/dL Total Bilirubin 0.4 (0.0-1.0) mg/dL AST 26 (5-31) U/L ALT 20 (0-31) U/L Alkaline Phosphatase 72 (39-117) U/L Total Protein 7.6 (6.5-8.0) g/dL Albumin 4.1 (3.5-5.0) g/dL Influenza Type A (PCR) NEGATIVE (Negative) Influenza Type B (PCR) NEGATIVE (Negative) RSV RNA Qual (PCR) NEGATIVE (Negative) SARS-CoV-2 RNA (RT-PCR) NEGATIVE (Negative) Independent Interpretation I performed an independent interpretation of an: Plain X-Ray Interpretation: See above External Record Review External record reviewed: Prior outpatient labs and Prior outpatient radiology Critical Care Time Critical Care Time Critical Care Time: Yes Total Critical Care Time: 30 Attestation: I personally attest to this time spent taking care of the patient. Discharge Plan Discharge Clinical Impression: Acute hypoxic respiratory failure, COPD exacerbation Patient Disposition: Admitted As Inpatient Print Language: Vincentian
[2025-01-20] MEDS: Albuterol Sulfate 2.5 MG, Albuterol/Iprat 2.5/0.5MG 3 ML 3 ML INHALE (00:38)
[2025-01-20 00:43] LABS: Hematocrit 48.0 % (37.0-47.0); Hemoglobin 15.8 g/dl (12.0-16.0); Imm Gran Abs Auto 0.02 X10*3/uL (0.00-0.03); Imm Gran Pct Auto 0.3 % (0.0-0.4); Lymphocytes Absolute Auto 1.9 X10*3/uL (1.2-4.9); MANUAL DIFF FLAG NO; Mean Corpuscular HGB Conc 32.9 g/dl (31.0-35.0); Mean Corpuscular Hemoglobin 30.2 pg (27.0-33.0); Mean Corpuscular Volume 91.6 fL (80.0-98.0); NRBC Abs Auto 0.000 X10*3/uL (0.0-0.012); NRBC Pct Auto 0.0 /100WBC (0.0-0.2); Platelet Count 155 X10*3/uL (160-400); Red Blood Count 5.24 X10*6/uL (4.20-5.50); White Blood Count 6.6 X10*3/uL (4.8-10.8)
[2025-01-20 00:46] LABS: Venous Blood Gas Refer to POC result
[2025-01-20 00:55] LABS: VBG HCO3 37 mmol/L (22-26); VBG O2 % Saturation 69.0 %
[2025-01-20 00:59] LABS: Alanine Aminotransferase 20 U/L (0-31); Albumin Level 4.1 g/dL (3.5-5.0); Alkaline Phosphatase 72 U/L (39-117); Anion Gap 12 (12-20); Aspartate Amino Transferase 26 U/L (5-31); Blood Urea Nitrogen 9 mg/dL (9-16); Calcium 9.2 mg/dL (8.4-10.2); Carbon Dioxide 34 mmol/L (22-29); Chloride 101 mmol/L (96-108); Creatinine Clr Calc Pharmacy 86.0; Estimated Glomerular Filt Rate > 60; Potassium 4.0 mmol/L (3.3-5.1); Sodium 143 mmol/L (135-145); Total Protein 7.6 g/dL (6.5-8.0)
--- OUTSIDE RECORDS SUMMARY | 2025-01-20 01:04 | XMS_ITS | Encounter Summary ---
Author Organization [employer] Address [address] [facility] 7 [place] [address] Care Team Providers Care Ip Counsel Name Role Phone Gilbert Traore MD Primary Care Prov ider Reason for Visit * Reason Onset Date Comments Results 04/23/2024 Encounter Details Date Type Department Care Team ([facility] Contact Info) Description 04/23/2024 Telephone [facility] CHC MED & PEDS [address] [place] [address] Gilbert Traore MD [address] [place] [address] Results Social History Tobacco Use Types Packs/Day Years Used Date Smoking Tobacco: Former Cigarettes 1 36.7 S tarted: 05/05/1988 Passive Smoke Exposure: Never [...] your housing situation today? I have suzette yazmin 04/14/[address] you li [...] blood work Date when done: 04/14/24 Facility: [facility] documented in this encounter Plan of Treatment Not on file documented as of this encounter Visit Diagnoses Not on filedocumented in this encounter Additional Health Concerns Assessment Noted Time PHQ-9 Depression Total Score: 0 04/14/20 9:02 AM EST documented as of this encounter Care Teams Ip Counsel Relationship Specialty Start Date End Date Gilbert Traore MD [address] [place] [id number] PCP - General Internal Medicine 09/13/19 documented as of this encounter
--- OUTSIDE RECORDS SUMMARY | 2025-01-20 01:04 | XMS_ITS | Clinical Summary ---
Author Organization [facility] ity Address [address] [place] [address] Care Team Providers Care Gis Software Engineer Name Role Phone Dara Leiva MD Primary Care Provider [phone] Social History Tobacco Use Types Packs/Day Years [...] Td Vaccines (1 - Tdap) 09/09/1987 Hepatitis B Vaccines (1 of 3 - 19+ 3-dose series) 09/09/1987 Cervical Cancer Screening: P ap Smear 1989 Pneumococcal Vaccine: 50+ Ye ars (1 of 1 - PCV) 2018 Zoster Vaccines (1 of 2) 2018 Depression Screening 05/05/2024 COVID-19 Vaccine (1 - 2023-2 5 season) 2025 Influenza Vaccine (#1) 2025 HIB Vaccines Aged Out No longer eligi ble based on patient's age to complete this topic HPV Vaccines Aged Out No longer eligi ble based on patient's age to complete this topic Hepatitis A Vaccines Aged Out No long er eligible based on patient's age to complete [...] age to complete this topic Care Teams Gis Software Engineer Relationship Specialty Start Date End Date Dara Leiva MD [address] [place] [address] PCP - General Internal Medicine 06/05/17
--- OUTSIDE RECORDS SUMMARY | 2025-01-20 01:04 | XMS_ITS | Encounter Summary ---
Author Organization [employer] Address [address] [place] [address] [address] [place] [address] Care Team Providers Care Fashion Adviser Name Role Phone Gilbert Traore MD Primary Care Prov ider Reason for Visit * Reason Comments Med Change Request Encounter Details Date Type Department [facility] Team ([facility] Contact Info) Description 10/14/2023 Refill [facility] CHC MED & PEDS [address] [place] [address] Bridgette Dowell MD [address] [place] [address] Social History Tobacco Use Types Packs/Day Years [...] on filedocumented in this encounter Care Teams Fashion Adviser Relationship Specialty Start Date End Date Gilbert Traore MD [address] [place] [id number] PCP - General Internal Medicine 09/13/19 documented as of this encounter
--- OUTSIDE RECORDS SUMMARY | 2025-01-20 01:04 | XMS_ITS | Clinical Summary ---
Author Organization [email or web address] Address [address] [place] [address] [address] [place] [address] Care Team Providers Care Pharmacy Tech Name Role Phone Gilbert Traore MD Primary Care Prov ider Allergies Active Allergy Reactions Criticality Noted Date Comments Bee Pollen 12/07/2013 Bee Venom Swelling 06/09/2023 Medications amitriptyline (Elavil) 25 MG tabletIndications :Acute insomnia TAKE 1 TABLET BY MOUTH EVERYDAY [...] for 10 days. 30 tablet 4 Active losartan (Cozaar) 50 MG tablet Take 1 tablet (50 mg) by mouth in the morning. 90 tablet 3 4 Active calamine-zinc oxide lotion Apply topically if needed (sunburn). 118 mL 4 Active albuterol 108 (90 Base) MCG/ACT inhalerIndication s:Simple chronic bronchitis (CMS/HCC) Inhale 2 puffs every 4 (four) hours if needed for wheezing or shortness of breath. 18 g 3 5 08/24/19 26 Active METHADONE HCL PO 75 mg. 2 Active Umeclidinium Selma (Incruse Ellipta) 62.5 MCG/ACT aerosol powderIndications :Simple chronic bronchitis (CMS/HCC) Take 1 Act (62.5 mcg) by mouth Once per day. 30 Act 3 5 Active predniSONE (Deltasone) 20 MG tabletIndications :COPD with acute exacerbation (CMS/HCC) 2 tabs po daily for 5 days 10 tablet 5 Active Active Problems Problem Noted Date Diagnosed Date Obstructive sleep apnea syndrome 10/12/2024 Onychomycosis 04/14/2024 Assessment & Plan (04/14/2024 11:43 AM EST): Will provide terbinafine, continue good higiene and dry extremity, wear appropiate shoes, follow up in 3 months Class 1 obesity due to exces s calories with serious comorbidity and body mass index (BMI) of 31.0 to 31.9 in adult 04/14/2024 Assessment & Plan (04/14/2024 11:54 AM EST): Will refer to flatbed driver, encouraged low calorie intake, small meals cut carbohydrates Primary hypertension 07/04/2023 Assessment & Plan (04/14/2024 [...] importance of smoking cesation, will renew albuterol Chronic bilateral low back pain with left-sided sciatica 06/10/2022 Assessment & Plan (07/21/2023 10:50 PM EDT): Will provide prednisone and muscle relaxant, rest, apply ice, call back if not improving Assessment & Plan (06/10/2022 1:00 PM EST): Straight leg raise was positive, will refer to PT, rest, apply ice/heat pads. COPD (chronic obstructive pulmonary disease) 06/2017 Viral hepatitis C 02/20/2018 Mood disorder 02/20/2018 Methadone use Resolved Problems Problem Noted Date Diagnosed Date Resolved Date Sunburn 10/14/2023 10/12/2024 Assessment & Plan (10/14/2023 9:38 AM EDT): Sunburn recommendations discussed. At this moment will send calamine, recommended aloe vera or oatmeal based moisturizers. Elevated blood pressure reading 06/03/2023 04/23/2024 Assessment & Plan (06/03/2023 3:00 PM EST): Was noticed that patient presented visit with an elevated blood pressure with readings of 148/86 mmHg. As a result, patient will be provided with a blood pressure kid and was advised to monitor readings at home, and bring numbers upon next office visit. Physical exam 06/10/2022 10/12/2024 Assessment & Plan (06/10/2022 12:58 PM EST): Will place order for routine labs Cervical cancer screening 06/10/2022 Assessment & Plan (10/14/2023 9:37 AM EDT): Screening done, will f/up on results. Sample obtain unclear if satisfactory as patient didn't tolerate examination well. At this moment will send swab and f/up on results. Assessment & Plan (06/10/2022 1:00 PM EST): Will refer for screening pap smear, she prefers a female provider Encounters Date Type Department Care Team Description 12/07/2024 10:00 AM EDT Office Visit [facility] [address] [place] [phone] Sara Serna MD COPD with acute exacerbation ([facility]) 12/07/2024 Results Follow-Up [facility] [address] [place] [address] Sara Serna MD XR Chest 2 Views 12/07/2024 Travel 12/06/2024 Telephone [facility] [address] [place] [address] Gilbert Traore MD Nurse Triage 11/10/2024 Refill [facility] [address] [place], [place] [phone] Gilbert Traore MD Simple chronic bronchitis ([facility]/HCC) 11/09/2024 Refill [facility] [address] [place] [address] Gilbert Traore MD Simple chronic bronchitis ([facility]/HCC) 11/05/2024 Refill [facility] [address] [place] [address] Gilbert Traore MD Simple chronic bronchitis ([facility]) from Last 3 Months Immunizations Immunization Administration Dates Next Due Influenza, seasonal, injecta [...] Passive Smoke Exposure: Never Smokeless Tobacco: Never Tobacco Cessation:Counseling Given: Not Answered Alcohol Use Standard Drinks/Week Comments Never 0 [...] Sign Reading Time Taken Comments Blood Pressure 125/67 12/07/2024 10:05 AM EDT Pulse 86 12/07/2024 10:05 AM EDT Temperature 36.7 C (98 F) 12/07/2024 10:05 AM EDT Respiratory Rate 18 12/07/2024 10:05 AM EDT Oxygen Saturation 95% 12/07/2024 10:05 AM EDT Inhaled Oxygen Concentration - - Weight 68.5 kg (151 lb) 12/07/2024 10:05 AM EDT Height 147.3 cm (4' 10 ) 05/13/2024 10:40 AM EST Body Mass Index 31.56 05/13/2024 10:40 AM EST Plan of Treatment Health Maintenance Due Date Last Done Comments CT Colonography 1968 FIT DNA/Cologuard 1968 FIT 1968 FOBT 1970 Sigmoidoscopy 1970 Disability Screening 1970 Hepatitis A Vaccines (1 of 2 - Risk 2-dose series) 09/09/1987 Hepatitis B Vaccines (1 of 3 - 19+ 3-dose series) 09/09/1987 Pneumococcal Vaccine: 50+ Years (1 of 2 - PCV) 09/09/1987 Zoster Vaccines (1 of 2) 2018 Cervical Cancer Screening 10/13/2024 HPV/Cotest 10/13/2024 10/14/2023 Pap Smear 10/13/2024 10/14/2023 COVID-19 Vaccine ( season) 2025 04/30/2022, 04/06/2021, 08/03/2020, Additional history exists Influenza Vaccine (#1) 2025 04/14/2024 Alcohol/Substance Use Screening 04/14/2025 04/14/2024 Depression Screening 04/14/2025 04/14/2024, 04/14/20 SDOH Screening 04/14/2025 04/14/2024 Tobacco Screening 12/07/2025 12/07/2024 Mammogram 07/05/2026 07/05/2024, 0305/2023, 04/19/2022, Additional history exists Colonoscopy 08/08/2026 08/08/2016 Colorectal Cancer Screening 08/08/2026 Lipid Panel 04/15/2029 04/15/2024, 10/2022, 08/07/2021 DTaP/Tdap/Td Vaccines (2 - Td or Tdap) 04/14/2034 04/14/2024 RSV Patients and Patients Aged 60 years or older (1 - 1-dose 75+ series) 09/09/2043 HIV Screening Completed 06/10/2022, 08/07/2021 HIB Vaccines Aged Out No longer eligi [...] Procedure Name Priority Date/Time Associated Diagnosis Comments POCT INFLUENZA A (ID NOW RAPID MOLECULAR) Routine 12/07/2024 10:14 AM EDT COPD with acute exacerbation (CMS/HCC) POCT INFLUENZA B (ID NOW RAPID MOLECULAR) Routine 12/07/2024 10:13 AM EDT COPD with acute exacerbation (CMS/HCC) POCT RAPID COVID ANTIGEN Routine 12/07/2024 10:12 AM EDT COPD with acute exacerbation (CMS/HCC) XR CHEST 2 VIEWS Routine 12/07/2024 9:54 AM EDT COPD with acute exacerbation (CMS/HCC) BI MAMMOGRAM SCREENING TOMOSYNTHESIS BILATERAL Routine 07/05/2024 10:05 AM EST LIPID PANEL, STANDARD Routine 04/15/2024 9:18 AM EST Primary hypertension HPV MRNA E6/E7 REFLEX TO HPV 16, 18/45 Routine 10/14/2023 2:34 PM EDT PAP SMEAR Routine 10/14/2023 9:30 AM EDT Cervical cancer screening HIV 1 RNA, QN PCR W/RFL JENI (RTI,PI,INTEGRASE) Routine 06/10/2022 11:13 AM EST Physical exam HM COLONOSCOPY Routine 08/08/2016 9:19 AM EDT from Last 3 Months or Most Recently Relevant to Health Maintenance Results * Influenza A (ID NOW Rapid Molecular) (12/07/2024 10:14 AM EDT) Influenza A Negative Negative, Indeterminate [facility] Swab 12/07/2024 10:1 4 AM EDT Sara Serna MD POINT OF CARE TEST ENTER/E DIT ORDERABLES Final Result [facility] [address] [place] [phone] * Influenza B (ID NOW Rapid Molecular) (12/07/2024 10:13 AM EDT) Influenza B Negative Negative, Indeterminate [facility] Swab 12/07/2024 10:1 3 AM EDT Sara Serna MD POINT OF CARE TEST ENTER/E DIT ORDERABLES Final Result [facility] [address] [place] [phone] * POCT Rapid COVID Ag (12/07/2024 10:12 AM EDT) Rapid COVID Ag Negative Swab 12/07/2024 10:1 2 AM EDT Sara Serna MD POINT OF CARE TEST ENTER/E DIT ORDERABLES Final Result * XR Chest 2 Views (12/07/2024 9:54 AM EDT) Anatomical Region Laterality Modality Chest Radiographic Ritika ging 12/07/2024 9:54 AM EDT Narrative 12/07/2024 11:20 AM EDT [address] [address] XRay Report Signed Patient: Yessica Natarajan MR#: [id number] : 1970 Acct:[id number] Age/Sex: 54 / F ADM Date: 12/07/24 Loc: HO.HHCX Attending Dr: Sara Serna MD Ordering Physician: Sara Serna MD Date of Service: 12/07/24 Procedure(s): XR chest 2V Accession Number(s): [id number] cc: Sara Serna MD EXAMINATION: XR CHEST CLINICAL INFORMATION: cough x 1 week, hx copd COMPARISON: 08/21/2023, 08/22/2021. TECHNIQUE: 2 views of the chest were obtained. FINDINGS: The cardiac, hilar, and mediastinal contours are normal. The lungs are well inspired. There is no consolidation. There is mild prominence of the bronchial markings, suggesting bronchial thickening. Chronic scarring in the right mid to upper lung. There is no pneumothorax or pleural effusion. There is no focal osseous or soft tissue abnormality. XR/XR chest 2V IMPRESSION: Mild bronchial thickening again noted. No focal pneumonia appreciated. Electronically signed by: Ravinder Diego MD 12/07/2024 11:18 AM EDT RP Dictated By: Ravinder Diego MD Signed By: <Electronically signed by Ravinder Diego MD in OV> 12/07/24 1118 DD/ 3 TD/TT: 12/07/24957 Manager Of Warehouse: Procedure Note Donotuseinterpreter, Image - 12/07/2024 [facility] [address] [place] [address] XRay Report Signed Patient: Kandy NatarajannaMR#: [id number] : 1970Acct:[id number] Age/Sex: 54 / FADM Date: 12/07/24 Loc: HO.HHCX Attending Dr: Sara Serna MD Ordering Physician: Sara Serna MD Date of Service: 12/07/24 Procedure(s): XR chest 2V Accession Number(s): [id number] cc: Sara Serna MD EXAMINATION: XR CHEST CLINICAL INFORMATION: cough x 1 week, hx copd COMPARISON: 08/21/2023, 08/22/2021. TECHNIQUE: 2 views of the chest were obtained. FINDINGS: The cardiac, hilar, and mediastinal contours are normal. The lungs are well inspired. There is no consolidation. There is mild prominence of the bronchial markings, suggesting bronchial thickening. Chronic scarring in the right mid to upper lung. There is no pneumothorax or pleural effusion. There is no focal osseous or soft tissue abnormality. XR/XR chest 2V IMPRESSION: Mild bronchial thickening again noted. No focal pneumonia appreciated. Electronically signed by: Ravinder Diego MD 12/07/2024 11:18 AM EDT RP Dictated By: Ravinder Diego MD Signed By: <Electronically signed by Ravinder Diego MD in OV> 12/07/24 1118 DD/ 3 TD/TT: 12/07/24957 Manager Of Warehouse: Sara Serna MD IMG XR PROCEDURES Edited R esult - Final * BI Mammogram Screening Tomosynthesis Bilateral (07/05/2024 10:05 AM EST) Anatomical Region Laterality Modality Breast Bilateral Mammography 07/05/2024 10:0 5 AM EST Narrative 07/06/2024 4:52 PM EST [facility] [address] [place], [place] [address] Mammography Report Signed Patient: Yessica Natarajan MR#: [id number] : 1970 Acct:[id number] Age/Sex: 53 / F ADM Date: 07/05/24 Loc: HO.MAMMO Attending Dr: Gilbert Ortiz MD Ordering Physician: Gilbert Traore MD Res ults: 2Benign Findings Date of Service: 07/05/24 Follow Up: 1 Year From Orig ina Mammogram Procedure(s): MM tomosynthesis screening BI Accession Number(s): [id number] cc: Gilbert Traore MD EXAMINATION: MM SCREENING DIGITAL BREAST TOMOSYNTHESIS, BILATERAL CLINICAL INFORMATION: Screening. Asymptomatic. COMPARISON: Mammography: Comparison is made with available priors TECHNIQUE: Digital breast mammography with tomosynthesis is performed in both the craniocaudal and mediolateral oblique views along with computer-aided detection (CAD). FINDINGS: The breasts are heterogeneously dense, which may obscure small masses (ACR BI-RADS breast composition Category c). Bilateral scattered silicone injections with areas of fat necrosis are not significantly changed from priors. There are no significant masses, abnormal calcifications, or other abnormalities. MM/MM tomosynthesis screening BI IMPRESSION: No mammographic evidence of malignancy. ASSESSMENT: BI-RADS BI-RADS 2 - Benign Findings RECOMMENDATION: Routine annual mammography screening. 1 year F/U This examination should not preclude the clinical evaluation of a suspicious palpable abnormality. This patient's information was entered into a reminder system with a target due date for their next mammogram. Electronically signed by: Clarice Szymanski DO 07/06/2024 04:49 PM EST Dictated By: Clarice Szymanski DO Signed By: <Electronically signed by Clarice Szymanski DO in OV> [id number] DD/ 100 TD/TT: 07/05/241004 Manager Of Warehouse: Procedure Note Donotuseinterpreter, Image - 07/06/2024 [facility] [address] [place] [address] Mammography Report Signed Patient: Kandy NatarajannaMR#: [id number] : 1970Acct:[id number] Age/Sex: 53 / FADM Date: 07/05/24 Loc: HO.MAMMO Attending Dr: Gilbert Ortiz MD Ordering Physician: Gilbert Traore ults: 2Benign Findings Date of Service: 07/05/24Follow Up: 1 Year From Orig inal Mammogram Procedure(s): MM tomosynthesis screening BI Accession Number(s): [id number] cc: Gilbert Traore MD EXAMINATION: MM SCREENING DIGITAL BREAST TOMOSYNTHESIS, BILATERAL CLINICAL INFORMATION: Screening. Asymptomatic. COMPARISON: Mammography: Comparison is made with available priors TECHNIQUE: Digital breast mammography with tomosynthesis is performed in both the craniocaudal and mediolateral oblique views along with computer-aided detection (CAD). FINDINGS: The breasts are heterogeneously dense, which may obscure small masses (ACR BI-RADS breast composition Category c). Bilateral scattered silicone injections with areas of fat necrosis are not significantly changed from priors. There are no significant masses, abnormal calcifications, or other abnormalities. MM/MM tomosynthesis screening BI IMPRESSION: No mammographic evidence of malignancy. ASSESSMENT: BI-RADS BI-RADS 2 - Benign Findings RECOMMENDATION: Routine annual mammography screening. 1 year F/U This examination should not preclude the clinical evaluation of a suspicious palpable abnormality. This patient's information was entered into a reminder system with a target due date for their next mammogram. Electronically signed by: Clarice Szymanski DO 07/06/2024 04:49 PM EST Dictated By: Clarice Szymanski DO Signed By: <Electronically signed by Clarice Szymanski DO in OV> 07/06/241648 DD/ 04 TD/TT: 07/05/24 1005 Manager Of Warehouse: Gilbert Ortiz MD IMG BI PROCEDURES Final Result * (ABNORMAL) Lipid Panel, Standard (04/15/2024 9:18 AM EST) Triglycerides 215(H) <150 mg/dL [facility] Comment:Desirable Triglyceri de: less than 150 mg/dLBorderline High Triglyceride 150-199 mg/dLHigh Triglyceride: 200-499 mg/dLVery High Triglyceride: greater than or equal to 5OO mg/dL Cholesterol 221(H) <200 mg/dL [facility] Comment:Desirable Cholestero l: less than 200 mg/dLBorderline High Cholesterol: 200-239 mg/dLHigh Cholesterol: greater than 239 mg/dL LDL Cholesterol Calculated 136(H) <100 mg/dL [facility] Comment:Desirable LDL: less than 100 mg/dLNear Optimal/Above Optimal LDL: 110- 129 mg/dLBorderline High LDL: 130-159 mg/dLHigh LDL: 160-189 mg/dLVery High LDL: greater than or equal to 190 mg/dL HDL Cholesterol 42 >40 mg/dL [facility] Comment:Desirable HDL: great er than 40 mg/dL Note: This HDL assay may give artificially low results in patients with liver disease. Blood Venous blood specimen / Unknown 04/15/2024 9:18 AM EST 04/15/2024 2:20 PM EST Gilbert Ortiz MD LAB BLOOD ORDERABL ES Final Result [facility] [address] [place] [phone] * (ABNORMAL) HPV mRNA E6/E7 w/Reflex to HPV Genotypes 16, 18/45 (10/14/2023 2:34 PM EDT) HPV nRNA E6/E7 Detected(A ) Not Detected [facility] Comment:Methodology: Transcr iption-Mediated AmplificationThis assay detects E6/E7 viral messenger RNA (mRNA) from 14high-risk HPV types (16,18,31,33,35,39,45,51,52,56,58,59,66,68).Cervical sources are required for HPV testing.If a vaginal source from a patient who has had atotal hysterectomy with removal of cervix wassubmitted, please contact the testing laboratoryfor alternative testing options.For additional information, please refer tohttp://education.[employer]/faq/LQL173a0(This link if provided for information/educational purposes only.)THIS TEST WAS PERFORMED AT:[facility] [place] [phone] HOFFMANN MD HPV 16 RNA NOT DETECTED NOT DETECTED [facility] HPV 18/45 RNA NOT DETECTED NOT DETECTED [facility] Comment:Methodology: Transcr iption Mediated AmplificationCervical sources are required for HPV testing.If a vaginal source from a patient who has had atotal hysterectomy with removal of cervix wassubmitted, please contact the testing laboratoryfor alternative testing options.THIS TEST WAS PERFORMED AT:[facility] [place] [phone] HOFFMANN MD 10/14/2023 2:34 PM EDT 10/15/2023 11:18 AM EDT Bridgette Dowell MD LAB CYTOLOGY ORDERABLES Final Result Performing Organization Address City/State/[facility] Co de Phone Number [facility] [address] [place] [phone] * Pap Smear (10/14/2023 9:30 AM EDT) Swab Vaginal structure / Unknown 10/14/2023 9:30 AM EDT 10/15/2023 6:00 AM EDT Narrative [facility] - 11/10/2023 11:17 AM EDT ----- ------- Name: Yessica Natarajan Age/Sex: 53/F : 1970 [id number]#: [id number] Attend Dr: Bridgette Dowell MD Re10/14/23 Status: [facility] REF Location: [facility] Disch: ----- ------- SPEC : [id number] RECD: 10/15/23-599 STATUS: SALINA STEFANY NUM: [id number] NESSA: 10/14/[address] [facility] [address]: Bridgette Dowell MD ENTERED: 10/15/23 SP TYPE: Pap Smr OT DR: ORDERED: Pap Smear Interpretation Satisfactory for evaluation. No endocervical cells seen. Negative for intraepithelial lesion or malignancy. Coccobacilli consistent with shift in vaginal nasrin. HPV mRNA E6/E7: DETECTED This assay detects E6/E7 viral messenger RNA (mRNA) from 14 high-risk HPV types (16, 18, 31, 33, 35, 39, 45, 51, 52, 56, 58, 59, 66, 68) HPV Type 16 RNA: Not Detected HPV Type 18/45 RNA: Not Detected HPV testing performed by [facility], [place], [place]. See reference laboratory portion of the EMR for entire report. Clinical Information LMP: 05/05/2019 Previous PAP test: Unknown date, unknown findings. Post menopausal. Material Received ThinPrep-Cervical ----- ------- Signed (signature on file) Marlena Mendoza 11/10/23 1117 ----- ------- END OF REPORT us Bridgette Dowell MD LAB CYTOLOGY ORDERABLES Final Result Performing Organization Address [facility] Co de Phone Number [address] [phone] * HIV-1 RNA, Quantitative, Real-Time PCR with Reflex to Genotype (RTI, PI, Integrase) (06/10/2022 11:13 AM EST) Pathologist [facility] HIV 1 RNA, QN PCR NOT DETECTED copies/mL [facility] [employer] [facility], HIV 1 RNA, QN PCR NOT DETECTED Log copies/mL [facility]/N [facility], Comment: REFERENCE RANGE: NOT DETECTED copies/mL NOT DETECTED Log copies/mL This test was performed using Real-Time Polymerase Chain Reaction. Reportable range is 20 to 10,000,000 copies/mL (1.30-7.00 Log copies/mL). 06/10/2022 11:1 3 AM EST 06/10/2022 11:14 AM EST Narrative [facility] - 06/13/2022 9:00 AM EST FASTING:NO FASTING: NO us Gilbert Ortiz MD LAB BLOOD ORDERABL ES Final Result Performing Organization Address [facility] Co de Phone Number [address], [place] [phone] [facility], [address] [phone] * Hm Colonoscopy (08/08/2016 9:19 AM EDT) us Historical Provider HEALTH MAINTENANCE Final Result from Last 3 Months or Most Recently Relevant to Health Maintenance Insurance [facility] , [address] [place] [address] Care Teams Pharmacy Tech Relationship Specialty Start Date End Date Gilbert Traore MD [address] [place] [phone] PCP - General Internal Medicine 09/13/19
--- OUTSIDE RECORDS SUMMARY | 2025-01-20 01:04 | XMS_ITS | Encounter Summary ---
Author Organization [employer] Address [address] [facility] 7 [place] [address] Care Team Providers Care Drop Forger Helper Name Role Phone Gilbert Traore MD Primary Care Prov ider Encounter Details Date Type Department Care Team ([facility] Contact Info) Description 11/03/2023 Orders Only [facility] [address] [place], [place] [phone] Gilbert Traore MD [address] [place] [address] Simple chronic bronchitis (CMS/HCC) Social History Tobacco [...] bronchitis documented in this encounter Care Teams Drop Forger Helper Relationship Specialty Start Date End Date Gilbert Traore MD [address] [place], [place] [phone] PCP - General Internal Medicine 09/13/19 documented as of this encounter
--- OUTSIDE RECORDS SUMMARY | 2025-01-20 01:04 | XMS_ITS | Encounter Summary ---
Author Organization [employer] Address [address] [facility] [address] [place] [address] Care Team Providers Care Chamber Walker Name Role Phone Gilbert Traore MD Primary Care Prov ider Encounter Details Date Type Department Care Team ([facility] st Contact Info) Description 08/25/2023 Orders Only [facility] [address] [place] [address] Provider, MD Leo Social History Tobacco Use Types Packs/Day Years [...] on file documented as of this encounter Procedures Procedure Name Priority Date/Time Associated Diagnosis Comments HM COLONOSCOPY Routine 08/08/2016 9:19 AM EDT documented in this encounter Results * Hm Colonoscopy (08/08/2016 9:19 AM EDT) us Historical Provider HEALTH MAINTENANCE Final Result documented in this encounter Visit Diagnoses Not on filedocumented in this encounter Care Teams Chamber Walker Relationship Specialty Start Date End Date Gilbert Traore MD [address] [place] [address] PCP - General Internal Medicine 09/13/19 documented as of this encounter
--- OUTSIDE RECORDS SUMMARY | 2025-01-20 01:04 | XMS_ITS | Encounter Summary ---
Author Organization [employer] Address [address] [place] [address] [address], [place] [address] Care Team Providers Care Printed Circuit Boards Plasma Etcher Name Role Phone Gilbert Traore MD Primary Care Prov ider Reason for Visit * Reason Comments Med Change Request Encounter Details Date Type Department Care Team ([facility] Contact Info) Description 01/16/2023 Refill [facility] [address] [place] [phone] Gilbert Traore MD [address] [place] [address] Simple chronic bronchitis (CMS/HCC) Social History Tobacco [...] bronchitis documented in this encounter Care Teams Printed Circuit Boards Plasma Etcher Relationship Specialty Start Date End Date Gilbert Traore MD [address] [place] [address] PCP - General Internal Medicine 09/13/19 documented as of this encounter
[2025-01-20 01:22] LABS: Resp Syncy Virus RNA Qual PCR NEGATIVE (Negative); SARS COV2 PCR INHOUSE NEGATIVE (Negative)
--- NOTE | 2025-01-20 01:40 | P.HPHOSP_ITS ---
History of Present Illness Date of Service: 01/20/25 Attending physician on admission: Kamran Ortiz Review of Systems 2 Review of Systems: All 12 systems were reviewed and normal except as noted in HPI. [facility] Medical History Epidermal inclusion cyst (05/24/24) Abnormal EKG Acute respiratory failure COPD exacerbation Lung collapse COPD (chronic obstructive pulmonary disease) Family History Mother No problems noted. Surgical History H/O: History of tracheostomy Social History Household Members: None Housing: Apartment Do you presently have visiting nurse or other home services: No Alcohol intake: current Alcohol intake frequency: a few times a month Patient Tobacco Use Status: Former Tobacco user Tobacco use type: Cigarette Cigarette Packs Per Day: 1.5 Cigarettes Per Day: 30.0 Smoked in Last 30 Days: Yes Use of substances other than those prescribed or required for medical reasons: Yes Substance Use Type: Other Substance Use Type Other:: methadone Substance Use Frequency: Daily Advance Directives: No Advance Directives Information Provided: Yes Do you have a plan to hurt others: No Plan Patient : No service: No Current occupational status: employed 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 Meds Allergies Allergy/AdvReac Type Severity Reaction Status Date / Time No Known Allergies Allergy Verified 01/20/25 00:16 Active Medications: Current Medications Acetaminophen (Acetaminophen 325 Mg Tablet) 975 mg PO Q6H PRN PRN Reason: Pain, Mild 1-3,fever,headache Albuterol Sulfate (Albuterol Sulfate (0.083%) 2.5 Mg/3 Ml Vial.Neb) 2.5 mg INHALE Q2H PRN PRN Reason: Shortness of Breath/Wheezing Calcium Carbonate (Calcium Carbonate 750 Mg Tab.Chew) 750 mg PO Q4H PRN PRN Reason: Heartburn Enoxaparin Sodium (Enoxaparin Sodium 40 Mg/0.4 Ml Syringe) 40 mg SUBCUT Q24H SAGAR Azithromycin 500 mg/ Sodium (Chloride) 250 mls @ 125 mls/hr IV ONCE ONE Stop: 01/20/25 03:25 Ipratropium [place] (Ipratropium [place] 1 Puff/17 Mcg Inhaler) 4 puff INHALE RQ4H WHILE AWAKE SAGAR Magnesium Hydroxide (Milk Of Magnesia 30 Ml Oral.Susp) 30 ml PO DAILY PRN PRN Reason: Constipation Melatonin (Melatonin 3 Mg Tablet) 6 mg PO BEDTIME PRN PRN Reason: Insomnia Methylprednisolone Sodium Succinate (Methylprednisolone Sod Succ 40 Mg/Ml Vial) 40 mg IVPUSH BID SAGAR Sodium Chloride (0.9 % Sodium Chloride Flush 3 Ml Syringe) 3 ml IVFLUSH QSHIFT SAGAR Home Medications ?Medication ?Instructions ?Recorded ?Confirmed ?Last Taken ?Type albuterol sulfate 90 mcg/actuation 2 puff inhalation Q ID PRN dyspnea 08/22/21 06/01/24 08/21/23 History aerosol inhaler (Ventolin HFA) tiotropium bromide 18 mcg capsule 1 cap inhalation JAMIR LY 08/22/21 06/01/24 08/21/23 History with inhalation device (Spiriva with HandiHaler) terbinafine HCl 250 mg tablet 250 mg PO DAILY 05/10/24 06/01/24 Unknown History methadone 10 mg/mL oral concentrate 60 mg PO DAILY 06/01/24 Unknown History Physical Exam 2 Vital Signs and Narrative: Vital Signs: Last Vital Signs Temp 98.3 F 01/20/25 00:16 Pulse 80 01/20/25 00:39 Resp 17 01/20/25 00:39 BP 176/100 H 01/20/25 00:16 Pulse Ox 96 01/20/25 00:17 O2 Del Method Nasal Cannula 01/20/25 00:17 O2 Flow Rate 4 01/20/25 00:17 BMI result Body Mass Index 23.8 Constitutional - Awake and Alert, No apparent distress Eyes - PERRLA, EOMI Cardiovascular - S1S2, RRR, No edema Respiratory - Normal lung expansion, Normal respiratory effort, No respiratory distress, CTA bilaterally Gastrointestinal - NT / ND; +BS; No rebound or guarding - No CVA tenderness Extremities - no calf tenderness bilaterally, no swelling Musculoskeletal - Normal inspection, normal ROM Skin - Warm/Dry Neurological - Alert & oriented x3, CN II-XII in tact, 5/5 strength BUE and BLE Psychological - Appropriate affect Results Labs 01/20/25 00:34 01/20/25 00:34 Labs: Laboratory Results - last 24 hr 01/20/25 01/20/25 01/20/25 00:34 00:35 00:45 MCV 91.6 MCH 30.2 MCHC 32.9 RDW 14.7 Plt Count 155 L MPV 10.1 Immature Gran % (Auto) 0.3 Neut % (Auto) 63.3 Lymph % (Auto) 27.9 [place] % (Auto) 6.0 Eos % (Auto) 2.3 Baso % (Auto) 0.2 Lymph # (Auto) 1.9 [place] # (Auto) 0.4 Eos # (Auto) 0.2 Baso # (Auto) 0.0 Abs Immat Gran (auto) 0.02 Absolute Neuts (auto) 4.2 Absolute Nucleated RBC 0.000 Nucleated RBC % (auto) 0.0 VBG pH 7.34 VBG pCO2 68 VBG pO2 43 VBG HCO3 37 H VBG O2 Saturation 69.0 VBG Base Excess 8.3 Anion Gap 12 Estim Creat Clear Calc 86.0 Estimated GFR > 60 Random Glucose 102 Lactic Acid 1.0 Calcium 9.2 Total Bilirubin 0.4 AST 26 ALT 20 Alkaline Phosphatase 72 Total Protein 7.6 Albumin 4.1 Influenza Type A (PCR) NEGATIVE Influenza Type B (PCR) NEGATIVE RSV RNA Qual (PCR) NEGATIVE SARS-CoV-2 RNA (RT-PCR) NEGATIVE Quality VTE VTE Risk Level:: Medical - moderate - high VTE Device Contraindication: Treatment Not Indicated VTE Drug Contraindication: N/A - Med Ordered
--- NOTE | 2025-01-20 01:48 | PC.NURSE ---
pt medicated per JUL, pt requesting Tylenol for headache 11/11 pain
--- NOTE | 2025-01-20 01:55 | PC.NURSE ---
Addendum entered by Fahad Cesar 01/20/25 04:02: pt A+Ox4 and able to verbalize home medications Original Note: med rec complete at this time
--- NOTE | 2025-01-20 02:16 | PM.IMHP ---
History of Present Illness Date of Service: 01/20/25 Attending physician on admission: Kamran Ortiz Chief Complaint: Dyspnea Pt is a 54 yo female with PMH Substance use disorder on methadone near, tobacco use (recently resumed smoking again 1 week ago), COPD, hepatitis C with completion of treatment, tracheostomy and ventilation age 18 secondary to pneumonia and collapsed lung, hyperlipidemia, history of COVID presents to ED with complaints of worsening shortness of breath that started before midnight with accompanying chills but no fever. Patient states she has not been exposed to anybody with upper respiratory illness and has been otherwise healthy. Patient states she started smoking recently due to boredom. Patient has been smoking 1-2 cigarettes per day. Patient denies any chest pain, current shortness breath at rest, but is currently on oxygen 2 L nasal cannula and does not have oxygen at home. Patient denies a productive cough. Chest x-ray indicated cardiomegaly with probable volume overload. Negative for pneumonia. Patient denies history of heart failure or cardiac intervention including PCI. Patient did have a stress test in October of 2021 with normal findings. Echo done in August of 2021 noted EF of 65-70% with no evidence of valvular disease, heart failure or pulmonary hypertension. Patient received methylprednisolone IV, duo neb, azithromycin ceftriaxone x1. No obvious leukocytosis and lactic acid was normal. Patient being admitted for acute hypoxic respiratory failure with COPD exacerbation and possible CHF exacerbation based on chest x-ray alone. Patient presents euvolemic. BNP and ECG pending. Review of Systems Review of Systems: Patient denies any chest pain, current shortness of breath at rest, abdominal pain, nausea or vomiting. Patient is not having issues with diarrhea or constipation. Patient denies any headache or visual changes. Patient is not having any chills and there has been no fever. Yes all other systems are reviewed and are negative [facility] Medical History (Updated 01/20/25 @ 03:09 by Josie Levy, [email or web address]-[email or web address]) Menopause Substance use disorder Hepatitis C Trapezius muscle strain Left shoulder tendonitis Tendinitis of right rotator cuff Epidermal inclusion cyst (05/24/24) Abnormal EKG Acute respiratory failure COPD exacerbation Lung collapse COPD (chronic obstructive pulmonary disease) Cognitive capacity: Alert and orientated x3 Functional capacity: independent ambulation Patient : No (Postmenopausal) Family History Mother No problems noted. 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 Ebola Risk: Travel/Contact With Anyone From Affected Area/s: No Has Patient Experienced Ebola Symptoms: No Meds Allergies Allergy/AdvReac Type Severity Reaction Status Date / Time No Known Allergies Allergy Verified 01/20/25 00:16 Active Medications: Current Medications Acetaminophen (Acetaminophen 325 Mg Tablet) 975 mg PO Q6H PRN PRN Reason: Pain, Mild 1-3,fever,headache Last Admin: 01/20/25 01:47 Dose: 975 mg Albuterol Sulfate (Albuterol Sulfate (0.083%) 2.5 Mg/3 Ml Vial.Neb) 2.5 mg INHALE Q2H PRN PRN Reason: Shortness of Breath/Wheezing Calcium Carbonate (Calcium Carbonate 750 Mg Tab.Chew) 750 mg PO Q4H PRN PRN Reason: Heartburn Enoxaparin Sodium (Enoxaparin Sodium 40 Mg/0.4 Ml Syringe) 40 mg SUBCUT Q24H SAGAR Azithromycin 500 mg/ Sodium (Chloride) 250 mls @ 125 mls/hr IV ONCE ONE Stop: 01/20/25 03:25 Last Admin: 01/20/25 01:48 Dose: 125 mls/hr Ipratropium [place] (Ipratropium [place] 1 Puff/17 Mcg Inhaler) 4 puff INHALE RQ4H WHILE AWAKE SAGAR Magnesium Hydroxide (Milk Of Magnesia 30 Ml Oral.Susp) 30 ml PO DAILY PRN PRN Reason: Constipation Melatonin (Melatonin 3 Mg Tablet) 6 mg PO BEDTIME PRN PRN Reason: Insomnia Methylprednisolone Sodium Succinate (Methylprednisolone Sod Succ 40 Mg/Ml Vial) 40 mg IVPUSH BID SAGAR Sodium Chloride (0.9 % Sodium Chloride Flush 3 Ml Syringe) 3 ml IVFLUSH QSHIFT SAGAR Home Medications ?Medication ?Instructions ?Recorded ?Confirmed ?Last Taken ?Type albuterol sulfate 90 mcg/actuation 2 puff inhalation QID PRN dyspnea 08/22/21 01/20/25 08/21/23 History aerosol inhaler (Ventolin HFA) tiotropium bromide 18 mcg capsule 1 cap inhalation DAILY 08/22/21 01/20/25 08/21/23 History with inhalation device (Spiriva with HandiHaler) terbinafine HCl 250 mg tablet 250 mg PO DAILY 05/10/24 06/01/24 Unknown History methadone 10 mg/mL oral concentrate 50 mg PO DAILY 05/24/24 01/20/25 01/19/25 History Physical Exam Vital Signs and Narrative: Vital Signs: Last Vital Signs Temp 98.3 F 01/20/25 00:16 Pulse 80 01/20/25 00:39 Resp 17 01/20/25 00:39 BP 176/100 H 01/20/25 00:16 Pulse Ox 96 01/20/25 00:17 O2 Del Method Nasal Cannula 01/20/25 00:17 O2 Flow Rate 4 01/20/25 00:17 BMI result Body Mass Index 23.8 Alert and orientated X3, able to give good history. Neuro: CN II-X11 intact, no deficits, visual acuity intact EYES: PERRLA, EOM intact, sclerae nonicteric ENT: hearing intact, no issues with swallowing, uvula midline, lips moist, nares patent no epistaxis Cardiac: S1 S2 RRR, no murmur, no JVD, no edema in Lower ext Pulmonary: lungs diminished bilaterally, expiratory wheeze upper bases Abdominal: BS active in all 4 quadrants, no guarding, tenderness, rebounding MSK: strength 5/5 upper and lower extremities : no CVA tenderness no bladder distension Extremities: no edema in lower extremities, PT and DP pulses palpable +2 Psych: mood stable, judgement and insight good Skin: No new rash or lesion Results Labs 01/20/25 00:34 01/20/25 00:34 Labs: Laboratory Results - last 24 hr 01/20/25 01/20/25 01/20/25 00:34 00:35 00:45 MCV 91.6 MCH 30.2 MCHC 32.9 RDW 14.7 Plt Count 155 L MPV 10.1 Immature Gran % (Auto) 0.3 Neut % (Auto) 63.3 Lymph % (Auto) 27.9 [place] % (Auto) 6.0 Eos % (Auto) 2.3 Baso % (Auto) 0.2 Lymph # (Auto) 1.9 [place] # (Auto) 0.4 Eos # (Auto) 0.2 Baso # (Auto) 0.0 Abs Immat Gran (auto) 0.02 Absolute Neuts (auto) 4.2 Absolute Nucleated RBC 0.000 Nucleated RBC % (auto) 0.0 VBG pH 7.34 VBG pCO2 68 VBG pO2 43 VBG HCO3 37 H VBG O2 Saturation 69.0 VBG Base Excess 8.3 Anion Gap 12 Estim Creat Clear Calc 86.0 Estimated GFR > 60 Random Glucose 102 Lactic Acid 1.0 Calcium 9.2 Total Bilirubin 0.4 AST 26 ALT 20 Alkaline Phosphatase 72 Total Protein 7.6 Albumin 4.1 Influenza Type A (PCR) NEGATIVE Influenza Type B (PCR) NEGATIVE RSV RNA Qual (PCR) NEGATIVE SARS-CoV-2 RNA (RT-PCR) NEGATIVE ECG Prior ECG tracings: not available for review Imaging Radiologist's Impressions: CXR Findings: Central pulmonary vascular prominence. Minor linear atelectasis or scar at the right upper lung. No consolidation or effusion. Heart size at the upper limits. No acute fracture. IMPRESSION: Cardiomegaly with probable volume overload. Assessment and Plan (1) Acute hypoxic respiratory failure: Status: Acute (2) Acute exacerbation of chronic obstructive airways disease: Status: Acute (3) Cardiomegaly: Status: Acute Plan Pt is a 54 yo female with PMH Substance use disorder on methadone near, tobacco use (recently resumed smoking again 1 week ago), COPD, hepatitis C with completion of treatment, tracheostomy and ventilation age 18 secondary to pneumonia and collapsed lung, hyperlipidemia, history of COVID presents to ED with complaints of worsening shortness of breath that started before midnight with accompanying chills but no fever. Initial pulse ox on room air 73% with a blood pressure of 176/100. On 2 L nasal cannula, pulse ox improved to 96% and blood pressure also stable at 132/64. Chest x-ray noted for cardiomegaly with central pulmonary vascular prominence indicating probable volume overload. Patient denies history of heart failure. Patient being admitted for acute hypoxic respiratory failure secondary to COPD exacerbation without evidence of active infection and possible new onset CHF exacerbation. Acute hypoxic respiratory failure VBG 7.34, 68, 43, 37 (comparison labs note hx of elevated HCO3, stable renal function) Chest x-ray noted for cardiomegaly with fluid volume overload noting central pulmonary vascular prominence, no PNA Pt did receive one dose of Ceftriaxone and Azithromycin, not resuming ABX at this time - no leukocytosis, elevated LA, fever Wean oxygen as tolerated, patient does not use oxygen at home Viral testing negative for COVID, flu and RSV Duo nebs while awake Continuous pulse ox If no overall improvement consider CT of the chest, CTA - will check Ddimer COPD exacerbation Smoking cessation encouraged Wean oxygen as tolerated Duo nebs while awake Methylprednisolone 40 BID Continue Spiriva Incentive spirometry Patient requesting nebulizer and duo nebs for home to use as needed Recommended patient's seek outpatient pulmonary consultation from PCP after discharge for follow and PFT testing Cardiomegaly with probable volume overload Patient denies history of heart failure ECG pending BNP pending If BNP abnormal consider echo and Cardiology consultation Tobacco use Patient requesting nicotine replacement, 7 mg patch ordereed Substance use disorder Continue methadone once doses confirm Patient denies any recent illicit drug use DVT prophylaxis: Lovenox Med rec pending Full Code status Quality Stroke Does the patient have a stroke diagnosis?: No Reason for No Anti-thrombotic by Day Two: N/A - Med Ordered VTE Prior VTE?: No VTE Risk Level:: Medical - moderate - high VTE Device Contraindication: Treatment Not Indicated VTE Drug Contraindication: N/A - Med Ordered
[2025-01-20 04:56] LABS: Hematocrit 47.7 % (37.0-47.0); Hemoglobin 15.0 g/dl (12.0-16.0); Imm Gran Abs Auto 0.02 X10*3/uL (0.00-0.03); Imm Gran Pct Auto 0.2 % (0.0-0.4); Lymphocytes Absolute Auto 0.6 X10*3/uL (1.2-4.9); MANUAL DIFF FLAG SCAN; Mean Corpuscular HGB Conc 31.4 g/dl (31.0-35.0); Mean Corpuscular Hemoglobin 29.6 pg (27.0-33.0); Mean Corpuscular Volume 94.3 fL (80.0-98.0); NRBC Abs Auto 0.000 X10*3/uL (0.0-0.012); NRBC Pct Auto 0.0 /100WBC (0.0-0.2); Platelet Count 149 X10*3/uL (160-400); Red Blood Count 5.06 X10*6/uL (4.20-5.50); SCAN SMEAR FLAG 1; White Blood Count 8.2 X10*3/uL (4.8-10.8)
[2025-01-20 05:12] LABS: Anion Gap 14 (12-20); Blood Urea Nitrogen 9 mg/dL (9-16); Calcium 8.7 mg/dL (8.4-10.2); Carbon Dioxide 30 mmol/L (22-29); Chloride 102 mmol/L (96-108); Creatinine Clr Calc Pharmacy 83.4; Estimated Glomerular Filt Rate > 60; Magnesium 1.6 mg/dL (1.6-2.6); Potassium 3.2 mmol/L (3.3-5.1); Sodium 143 mmol/L (135-145)
[2025-01-20 05:19] LABS: NT Pro B Type Natriuretic Pept 220.2 pg/mL (<300)
[2025-01-20 05:39] LABS: D Dimer High Sensitivity < 150 NG/ML
--- NOTE | 2025-01-20 06:16 | HO.NURTONUR ---
Addendum entered by Alison Cantrell RN 01/20/25 08:33: Call back received from GIULIA Pascual with [facility], who verifies the following: Pt was last dosed in clinic on 01/12/25 @ 0904am with 50mg. At this time, she also received 27 take home dose at 50mg to dose at home from 01/13/25-02/08/25. Methadone verification form completed and faxed to Pharmacy. Original copy placed in chart. Addendum entered by Alison Cantrell RN 01/20/25 08:28: During AM med pass, Pt reports she has not received her Methadone dose for today. Pt reports Methadone received at [facility]. Per Med Rec dose was verified but this RN unable to located Methadone Verification Form and pharmacy reports no form on file. Call placed to [facility] in an attempt to verfiy Methadone dose for Pt. [employer] transfers this RN to [employer] gl[employer] superintendent where then prompted to leave a voicemail for call back. Voicemail left with call back number. Awaiting call back to verify Methadone dose. Original Note: Chief Complaint: Dyspnea Pt is a 54 yo female, full code, NKA with PMH Substance use disorder on methadone X15 years, tobacco use (recently resumed smoking again 1 week ago), COPD, hepatitis C with completion of treatment, tracheostomy and ventilation age 18 secondary to pneumonia and collapsed lung, hyperlipidemia, history of COVID presents to ED with complaints of worsening shortness of breath that started before midnight with accompanying chills but no fever. Patient states she has not been exposed to anybody with upper respiratory illness and has been otherwise healthy. Patient states she started smoking recently due to boredom. Patient has been smoking 1-2 cigarettes per day. Patient denies any chest pain, current shortness breath at rest, but is currently on oxygen 2 L nasal cannula and does not have oxygen at home. Patient denies a productive cough. Chest x-ray indicated cardiomegaly with probable volume overload. Negative for pneumonia. Patient denies history of heart failure or cardiac intervention including PCI. Patient did have a stress test in October of 2021 with normal findings. Echo done in August of 2021 noted EF of 65-70% with no evidence of valvular disease, heart failure or pulmonary hypertension. Patient received methylprednisolone IV, duo neb, azithromycin ceftriaxone x1. No obvious leukocytosis and lactic acid was normal. Patient being admitted for acute hypoxic respiratory failure with COPD exacerbation and possible CHF exacerbation based on chest x-ray alone. Patient presents euvolemic. BNP and ECG pending. 20g IV placed to the R. AC
[2025-01-20] MEDS: 0.9 % Sodium Chloride Flush 3 ML SYRINGE IVFLUSH ×3 (08:12→20:03)
--- NOTE | 2025-01-20 08:27 | PHA.MEDREC ---
Addendum entered by Emma Lua RPh 01/20/25 08:30: reviewed by [facility]. Original Note: Pharmacy Consult ? Medication Reconciliation Pharmacy has reviewed the medication reconciliation done by nursing. Spoke to patient to confirm med list. Patient confirmed Methadone 50 mg daily fro [facility] , last dose was yesterday.
--- NOTE | 2025-01-20 08:35 | HO.PM.IMPN ---
Subjective Subjective Date of Service: 01/20/25 Interval History: copd execerebation,cardiomegaly Review of Systems says sob similar to yesterday dry cough Review of Systems: Yes all other systems are reviewed and are negative Physical Exam Exam: Exam: Appearance: Alert.? Oriented X3.? cvs: rrr, [id number]. res: air entry diminshed , has b/l wheezing abd: no rebound or guarding ,nt, bs present. ext pulses present , no cyanosis . neuro: axo3 , nonfocal. Vital Signs: Vital Signs: Last Vital Signs Temp 98.2 F 01/20/25 06:13 Pulse 86 01/20/25 06:13 Resp 16 01/20/25 06:13 BP 116/69 01/20/25 06:13 Pulse Ox 96 01/20/25 06:13 O2 Del Method Nasal Cannula 01/20/25 06:13 O2 Flow Rate 3 01/20/25 06:13 BMI result Body Mass Index 23.8 Objective Data Active Medications Acetaminophen (Acetaminophen 325 Mg Tablet) 975 mg PO Q6H PRN PRN Reason: Pain, Mild 1-3,fever,headache Last Admin: 01/20/25 01:47 Dose: 975 mg Documented By: AMISH Albuterol Sulfate (Albuterol Sulfate (0.083%) 2.5 Mg/3 Ml Vial.Neb) 2.5 mg INHALE Q2H PRN PRN Reason: Shortness of Breath/Wheezing Calcium Carbonate (Calcium Carbonate 750 Mg Tab.Chew) 750 mg PO Q4H PRN PRN Reason: Heartburn Enoxaparin Sodium (Enoxaparin Sodium 40 Mg/0.4 Ml Syringe) 40 mg SUBCUT Q24H [facility] Last Admin: 01/20/25 08:11 Dose: 40 mg Documented By: AMOL Ipratropium [place] (Ipratropium [place] 1 Puff/17 Mcg Inhaler) 4 puff INHALE RQ4H WHILE AWAKE [facility] Magnesium Hydroxide (Milk Of Magnesia 30 Ml Oral.Susp) 30 ml PO DAILY PRN PRN Reason: Constipation Melatonin (Melatonin 3 Mg Tablet) 6 mg PO BEDTIME PRN PRN Reason: Insomnia Methylprednisolone Sodium Succinate (Methylprednisolone Sod Succ 40 Mg/Ml Vial) 40 mg IVPUSH BID [facility] Last Admin: 01/20/25 08:11 Dose: 40 mg Documented By: AMOL Sodium Chloride (0.9 % Sodium Chloride Flush 3 Ml Syringe) 3 ml IVFLUSH [facility] Last Admin: 01/20/25 08:12 Dose: 3 ml Documented By: AMOL Labs 01/20/25 04:42 01/20/25 04:42 Labs: Laboratory Results - last 24 hr 01/20/25 01/20/25 01/20/25 00:34 00:35 00:45 MCV 91.6 MCH 30.2 MCHC 32.9 RDW 14.7 Plt Count 155 L MPV 10.1 Immature Gran % (Auto) 0.3 Neut % (Auto) 63.3 Lymph % (Auto) 27.9 [place] % (Auto) 6.0 Eos % (Auto) 2.3 Baso % (Auto) 0.2 Lymph # (Auto) 1.9 [place] # (Auto) 0.4 Eos # (Auto) 0.2 Baso # (Auto) 0.0 Abs Immat Gran (auto) 0.02 Absolute Neuts (auto) 4.2 Absolute Nucleated RBC 0.000 Nucleated RBC % (auto) 0.0 Smear Tech's Comments D-Dimer High Sensitivty VBG pH 7.34 VBG pCO2 68 VBG pO2 43 VBG HCO3 37 H VBG O2 Saturation 69.0 VBG Base Excess 8.3 Anion Gap 12 Estim Creat Clear Calc 86.0 Estimated GFR > 60 Random Glucose 102 Lactic Acid 1.0 Calcium 9.2 Magnesium Total Bilirubin 0.4 AST 26 ALT 20 Alkaline Phosphatase 72 NT-Pro-B Natriuret Pep Total Protein 7.6 Albumin 4.1 Influenza Type A (PCR) NEGATIVE Influenza Type B (PCR) NEGATIVE RSV RNA Qual (PCR) NEGATIVE SARS-CoV-2 RNA (RT-PCR) NEGATIVE 01/20/25 04:42 MCV 94.3 MCH 29.6 MCHC 31.4 RDW 14.6 Plt Count 149 L MPV 10.4 Immature Gran % (Auto) 0.2 Neut % (Auto) 92.3 H Lymph % (Auto) 7.1 L [place] % (Auto) 0.2 L Eos % (Auto) 0.0 Baso % (Auto) 0.2 Lymph # (Auto) 0.6 L [place] # (Auto) 0.0 L Eos # (Auto) 0.0 Baso # (Auto) 0.0 Abs Immat Gran (auto) 0.02 Absolute Neuts (auto) 7.5 Absolute Nucleated RBC 0.000 Nucleated RBC % (auto) 0.0 Smear Tech's Comments VERIFIED D-Dimer High Sensitivty < 150 VBG pH VBG pCO2 VBG pO2 VBG HCO3 VBG O2 Saturation VBG Base Excess Anion Gap 14 Estim Creat Clear Calc 83.4 Estimated GFR > 60 Random Glucose 197 H Lactic Acid Calcium 8.7 Magnesium 1.6 Total Bilirubin AST ALT Alkaline Phosphatase NT-Pro-B Natriuret Pep 220.2 Total Protein Albumin Influenza Type A (PCR) Influenza Type B (PCR) RSV RNA Qual (PCR) SARS-CoV-2 RNA (RT-PCR) Assessment and Plan (1) COPD (chronic obstructive pulmonary disease): Status: Acute Plan 52-year-old female with a PMH significant for?COPD, HTN, prior IVDU on methadone (clean for >7 years), and hx of pneumococcal pneumonia complicated by collapsed lung and tracheotomy who presents to the ED for evaluation of increasing SOB and cough with difficulty breathing. Pt will be admitted to the hospital acute hypoxic respiratory failure in setting of COPD exacerbation. Acute hypoxic respiratory failure in the setting of COPD exacerbation sob similar , dry cough gets sob with minimal excersion ,does not feel like respiratory status improving yet. Significant expiratory wheezing/rhonchi upon auscultation despite treatments in the ED, C cXR :cardiomegaly with fluid volume overload noting central pulmonary vascular prominence, no PNA plan: continue Xopenex, Solu-Medrol, guaifenesin, loratadine.taper oxygen Titrate supplemental O2 >92, wean as tolerated,Monitor respiratory status,Follow cultures cardiomegaly with ? pulmonary vascular prominence bnp seems fine will check echo -last echo was in08/24:Normal left ventricular size, thickness, and systolic function. The visuallyestimated ejection fraction is between 65-70%. Spectral Doppler is indicative of a normal filling pattern. HTN Continue losartan Nicotine dependence Recently quit smoking last week Continue NRT Hx of IVDU Clean for past 7+ years Continue methadone Full Code DVT Prophylaxis: Lovenox ongoing hospitalization need for treatment of?acute hypoxic respiratory failure in the setting of COPD exacerbation. Patient will require hospitalization for treatment with IV steroids, breathing treatments, IV antibiotics, and supplemental oxygen taper, monitering for respiratory status as well as cardiomegaly workup. Quality Stroke Does the patient have a stroke diagnosis?: No Reason for No Anti-thrombotic by Day Two: N/A - Med Ordered VTE Prior VTE?: No VTE Risk Level:: Medical - moderate - high VTE Device Contraindication: Treatment Not Indicated VTE Drug Contraindication: N/A - Med Ordered
--- NOTE | 2025-01-20 08:57 | HE.PHANOTE ---
re methadone verification last dose 50 mg given 01/12 at [facility] and 27 take home bottles given at that time. rn verified last dose taken from those bottles on 01/19.
--- NOTE | 2025-01-20 09:17 | MHC.CM.PN ---
CM met with Patient at bedside. Patient lives alone in an apartment and her car is here for transport to home at time of dc. Patient receives her Methadone from [facility] and home/resume said services is her goal. CM has initiated and will follow for dc planning. PCP is Dr. Gilbert Ann.
[2025-01-20] MEDS: methADONE HCl 20 MG/2 ML ORAL.CONC 50 MG PO (10:06)
[2025-01-20] MEDS: Nicotine 21 MG PATCH.TD24 TRANSDERMA (10:22)
[2025-01-20] MEDS: Potassium Chloride ER 20 MEQ TAB.ER.PRT PO (10:22)
--- NOTE | 2025-01-20 12:00 | CA_ITS ---
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 The calculated ejection fraction is 61% by biplane method. - No obvious valvular pathology seen on this study. - The inferior vena cava is dilated and collapses less than 50% with inspiration. Findings Procedure Information Contrast agent, definity, is being given per protocol without apparent complications. Left Ventricle Normal left ventricular cavity size. There is normal left ventricular wall thickness. The left ventricular systolic function is normal. The calculated ejection fraction is 61% by biplane method. There is no evidence of regional wall motion abnormalities. Diastolic function is normal for age. Right Ventricle Normal right ventricular cavity size and systolic function. Atria Both atria are normal in size. Aortic Valve The aortic valve was not well visualized. There is no aortic valve stenosis. There is no aortic valve regurgitation. Mitral Valve The mitral valve appears normal. There is no mitral valve regurgitation. There is no mitral valve stenosis. Pulmonic Valve The pulmonic valve is likely normal. Tricuspid Valve There is trace tricuspid valve regurgitation. Mild pulmonary hypertension is present. Great Vessels The asc aorta is normal in size. Venous The inferior vena cava is dilated and collapses less than 50% with inspiration. Pericardium/Pleural There is no evidence of pericardial effusion. Prior Study Comparison Changes noted compared to prior study dated: 08/23/2021. Increase in IVC size with reduced respiratory variation. Recommendations, Care & Conclusions No obvious valvular pathology seen on this study. Measurements 2D Linear Measurements IVSd: 0.78 0.6-0.9/0.6-1.0 cm LVIDd: 3.77 3.9-5.3/4.2-5.9 cm LVIDd Index: 2.26 2.4-3.2/2.2-3.1 cm/m2 LVIDs: 2.13 2.0-3.6 cm LVPWd: 0.90 0.7-1.1 cm LA Diam: 2.70 2.7-3.8/3.0-4.0 cm LAIDs Index: 1.62 1.5-2.3 cm/m2 LV Mass: 111.89 67-162/88-224 g LV Mass Index: 67.00 43-95/49-115 g/m2 LVOT Diam: 2.00 3.0+(-)1.3 cm 2D Systolic Function EF 4C: 57.20 >55% EF 2C: 62.90 >55% EF BiP: 60.60 >55% Mitral Valve MV Pk E: 0.78 MV PK A: 0.65 MV Decel Time: 153.00 E/A: 1.20 E'Lateral: 8.70 E'Medial: 6.20 E/E' Med: 12.60 E/E' Lat: 9.00 PHT: 45.00 MVA PHT: 4.89 Decel Gates: 5.10 Aortic Valve AoV Pk Emigdio: 1.38 AoV Mn Emigdio: 0.88 AoV VTI: 0.27 AoV Pk Grad: 8.00 Aov Mn Grad: 4.00 WESLY Cont.VTI: 2.24 LVOT LVOT Pk Emigdio: 0.87 LVOT Mn Emigdio: 0.56 LVOT VTI: 0.19 LVOT Pk Grad: 3.00 LVOT Mn Grad: 1.00 LVOT Diam: 2.00 LVOT Area: 3.14 Diastolic Function MV Pk E: 0.78 MV Pk A: 0.65 E/A: 1.20 E'Medial: 6.20 E/E' Med: 12.60 E' Laterial: 8.70 E/E' Lat: 9.00 Right Ventricle TAPSE (mm): 21.70 TVS' Emigdio: 12.20 Tricuspid Valve TR Pk Emigdio: 2.59 TR Pk Grad: 27.00 RA Press: 15.00 RVSP: 42.00 Great Vessels Aorta Sinus of Valsalva: 2.95 2.0-3.[address] [place]: 1.99 1.7-3.4 cm Ao Asc: 2.90 2.1-3.4 cm Updated in Other Vendor System with Status of Final Craig Quezada MD electronically signed on 01/20/2025 5:10:15 PM with status of Final
--- NOTE | 2025-01-21 | ECG_ITS ---
Test Reason : STAT ORDER Blood Pressure : */* mmHG Vent. Rate : 71 BPM Atrial Rate : 71 BPM P-R Int : 144 ms QRS Dur : 74 ms QT Int : 390 ms P-R-T Axes : 72 55 27 degrees QTcB Int : 423 ms Normal sinus rhythm Normal ECG When compared with ECG of 20-Jan-2025 03:13, Nonspecific T wave abnormality, improved in Inferior leads T wave inversion no longer evident in Anterior leads Referred By: Irineo Weiss Electronically Signed By: WALTER HARP
[2025-01-21 04:00] VITALS: BP 120/62; PULSE 66; RESP 16; TEMP 36.1; O2SAT 93
[2025-01-21 06:46] LABS: Cannabinoid Screen Urine Not Detected (Not Detect)
[2025-01-21 07:19] VITALS: BP 126/73; PULSE 72; RESP 16; TEMP 36.4; O2SAT 94
[2025-01-21 07:25] VITALS: PULSE 76; RESP 16; O2SAT 98
[2025-01-21] MEDS: Ipratropium Bromide 1 PUFF/17 MCG INHALER 4 PUFF INHALE (07:25)
[2025-01-21] MEDS: 0.9 % Sodium Chloride Flush 3 ML SYRINGE IVFLUSH (08:05)
[2025-01-21] MEDS: Nicotine 21 MG PATCH.TD24 TRANSDERMA (08:06)
[2025-01-21] MEDS: methADONE HCl 20 MG/2 ML ORAL.CONC 50 MG PO (08:07)
[2025-01-21 10:24] LABS: Troponin-I High Sensitivity < 2.7 ng/L (<3.5-17.0)
[2025-01-21 10:47] LABS: NT Pro B Type Natriuretic Pept 72.9 pg/mL (<300)
[2025-01-21 11:17] LABS: Blood Urea Nitrogen 11 mg/dL (9-16); Calcium 9.2 mg/dL (8.4-10.2); Creatinine Clr Calc Pharmacy 100.6; Estimated Glomerular Filt Rate > 60
[2025-01-21 11:28] LABS: Anion Gap 9 (12-20); Carbon Dioxide 35 mmol/L (22-29); Chloride 101 mmol/L (96-108); Potassium 4.7 mmol/L (3.3-5.1); Sodium 140 mmol/L (135-145)
[2025-01-21 11:40] VITALS: BP 138/72; PULSE 73; RESP 16; TEMP 36.1; O2SAT 93
--- NOTE | 2025-01-21 11:57 | MHC.CM.PN ---
EMR reviewed and per MD rounds, pt is not medically cleared for discharge due to management of COPD exacerbation.
[2025-01-21 12:22] LABS: Procalcitonin < 0.02 ng/mL
--- NOTE | 2025-01-21 12:26 | P.DS_ITS ---
DS: Providers Provider Date of Service: 01/21/25 Date of admission: 01/20/25 01:36 Date of discharge: 01/21/25 Primary care physician: Gilbert Ortiz MD Attending physician on discharge: Irineo Weiss Discharging clinician: Irineo Weiss DS: Diagnosis Discharge Diagnosis (1) COPD (chronic obstructive pulmonary disease): Status: Acute DS: Summary Hospital Course Hospital Course: HPI:54 yo female with PMH Substance use disorder on methadone near, tobacco use (recently resumed smoking again 1 week ago), COPD, hepatitis C with completion of treatment, tracheostomy and ventilation age 18 secondary to pneumonia and collapsed lung, hyperlipidemia, history of COVID presents to ED with complaints of worsening shortness of breath that started before midnight with accompanying chills but no fever. Patient states she has not been exposed to anybody with upper respiratory illness and has been otherwise healthy. Patient states she started smoking recently due to boredom. Patient has been smoking 1-2 cigarettes per day. Patient denies any chest pain, current shortness breath at rest, but is currently on oxygen 2 L nasal cannula and does not have oxygen at home. Patient denies a productive cough. Chest x-ray indicated cardiomegaly with probable volume overload. Negative for pneumonia. Patient denies history of heart failure or cardiac intervention including PCI. Patient did have a stress test in October of 2021 with normal findings. Echo done in August of 2021 noted EF of 65-70% with no evidence of valvular disease, heart failure or pulmonary hypertension. Patient received methylprednisolone IV, duo neb, azithromycin ceftriaxone x1. No obvious leukocytosis and lactic acid was normal. Patient being admitted for acute hypoxic respiratory failure with COPD exa cerbation and possible CHF exacerbation based on chest x-ray alone. Patient presents euvolemic. BNP and ECG pending. Hospital course: Patient was admitted for Acute hypoxemic respiratory failure secondary to COPD exacerbation: Shortness of breaths, expiratory wheezing: Chest x-ray question of cardiomegaly and congestion, BNP normal: Patient was started on nebs, steroids, oxygen: Seems to be improved significantly, in addition workup for cardiomegaly was done echo EF seems fine around 60 range, CT chest also done: Possible acute bronchitis: Added p.o. antibiotics. With the above supportive care patient seems to be improved significantly-will be going home with p.o. antibiotic and steroids continue home COPD medications. In addition patient was strongly advised to abstain from smoking. ct chest dental findings: Notable enlargement of the central and segmental pulmonary arteries is consistent with pulmonary arterial hypertension, scattered pulmonary nodules, largest measures up to 5 mm in the left upper lobe. Recommend 1-year interval CT follow-up in a high-risk patient. Patient is to follow up with PCP and consider outpatient follow-up with Pulmonary for above workup for pulmonary hypertension as well as lung nodules. Plan: Doxycycline 100 mg p.o. b.i.d., Ceftin 500 mg p.o. b.i.d. for 6 more days. Prednisone 40 mg daily for 4 days Above management discussed with the patient in detail length she understand and in agreement with the above plan, time spent 45 minute, all question answered, staff was present during conversation. Time Attestation Total time managing care of this patient today: 45 mintues. Discharge Coordination Time (in mins): 45 min Quality: Safe Use of Opioids Does Pt have an Active Cancer Diagnosis on the Problem List?: No Quality: Stroke Does the patient have a stroke diagnosis?: No Physical Exam Vital Signs: Vital Signs: Last Vital Signs Temp 97.0 F 01/21/25 11:40 Pulse 73 01/21/25 11:40 Resp 16 01/21/25 11:40 BP 138/72 01/21/25 11:40 Pulse Ox 93 01/21/25 11:40 O2 Del Method Nasal Cannula 01/21/25 11:40 O2 Flow Rate 2 01/21/25 11:40 BMI result Body Mass Index 26.5 Appearance: Alert.? Oriented X3.? cvs: rrr, [id number]. res: air entry diminshed , has b/l wheezing abd: no rebound or guarding ,nt, bs present. ext pulses present , no cyanosis . neuro: axo3 , nonfocal. DS: Data Data Completed and Pending Labs on day of discharge: Laboratory Results - last 24 hr 01/21/25 01/21/25 01/21/25 06:09 08:50 09:51 Hold Purple Top SEE NOTE Sodium 140 Potassium 4.7 D Chloride 101 Carbon Dioxide 35 H Anion Gap 9 L BUN 11 Creatinine 0.60 Estim Creat Clear Calc 100.6 Estimated GFR > 60 Random Glucose 123 H Calcium 9.2 Troponin I High Sens < 2.7 NT-Pro-B Natriuret Pep 72.9 Procalcitonin < 0.02 Urine Opiates Screen Not Detected Ur Buprenorphine Scrn Not Detected Ur Oxycodone Screen Not Detected Urine Methadone Screen Positive H Urine Fentanyl Screen Not Detected Ur Barbiturates Screen Not Detected Ur Phencyclidine Scrn Not Detected Ur Amphetamines Screen Not Detected U Benzodiazepines Scrn Not Detected Urine Cocaine Screen Not Detected U Marijuana (THC) Screen Not Detected Preliminary micro results at discharge 01/20/25 00:35 Blood Culture - Preliminary Blood - Venous No growth after 24 hours. 01/20/25 00:35 Blood Culture - Preliminary Blood - Venous No growth after 24 hours. Imaging Chest x-ray: Radiologist's impression: ITS Impressions Chest X-Ray 01/21/25 08:28 IMPRESSION: Borderline cardiomegaly. Mild pulmonary vascular prominence suggestive of congestion. Electronically signed by: Hector So MD 01/21/2025 08:[address] 01/21/25 10:19 IMPRESSION: 1. Mild centrilobular emphysema with evidence of mild interstitial pulmonary edema. Notable enlargement of the central and segmental pulmonary arteries is consistent with pulmonary arterial hypertension. 2. There are scattered pulmonary nodules, largest measures up to 5 mm in the left upper lobe. Recommend 1-year interval CT follow-up in a high-risk patient. 3. There is thickening of the small airways which can be seen with interstitial pulmonary edema, although acute/chronic bronchitis is an additional consideration. 4. There are ancillary findings as discussed in the body of the report. Electronically signed by: Ravinder Diego MD 01/21/2025 10:55 AM EDT echo: conclusions: - The left ventricular systolic function is normal. The calculated ejection fraction is 61% by biplane method. - No obvious valvular pathology seen on this study. - The inferior vena cava is dilated and collapses less than 50% with inspiration. Findings Procedure Information Contrast agent, definity, is being given per protocol without apparent complications. Left Ventricle Normal left ventricular cavity size. There is normal left ventricular wall thickness. The left ventricular systolic function is normal. The calculated ejection fraction is 61% by biplane method. There is no evidence of regional wall motion abnormalities. Diastolic function is normal for age. Right Ventricle Normal right ventricular cavity size and systolic function. Atria Both atria are normal in size. Aortic Valve The aortic valve was not well visualized. There is no aortic valve stenosis. There is no aortic valve regurgitation. Mitral Valve The mitral valve appears normal. There is no mitral valve regurgitation. There is no mitral valve stenosis. Pulmonic Valve The pulmonic valve is likely normal. Tricuspid Valve There is trace tricuspid valve regurgitation. Mild pulmonary hypertension is present. Great Vessels The asc aorta is normal in size. Venous The inferior vena cava is dilated and collapses less than 50% with inspiration. Pericardium/Pleural There is no evidence of pericardial effusion. Prior Study Comparison Changes noted compared to prior study dated: 08/23/2021. Increase in IVC size with reduced respiratory variation. Recommendations, Care & Conclusions No obvious valvular pathology seen on this study. Discharge Plan Discharge Anticipated Discharge Date/Time: 01/21/25 12:19 Patient Disposition: Home, Self-Care Discharge Diagnosis: copd execerebation, acute bronchitis Referrals: Gilbert Traore MD [Primary Care Provider, Medical] - 1 Week Discharge Medications: New doxycycline monohydrate 100 mg Capsule 100 mg PO Q12H Qty: 14 0RF nicotine 21 mg/24 hr Patch 24 Hour 21 mg transdermal DAILY Qty: 14 0RF cefuroxime axetil 500 mg Tablet 500 mg PO Q12H Qty: 14 0RF prednisone 20 mg Tablet 40 mg PO DAILY Qty: 8 0RF Continued albuterol sulfate [Ventolin HFA] 90 mcg/actuation HFA aerosol inhaler 2 puff inhalation QID PRN (Reason: dyspnea) tiotropium bromide [Spiriva with HandiHaler] 18 mcg capsule, w/inhalation device 1 cap inhalation DAILY methadone 10 mg/mL concentrate 50 mg PO DAILY ibuprofen 800 mg tablet 800 mg PO Q8H PRN (Reason: pain) Qty: 30 0RF Discharge Orders: Discharge Order (Routine); Ordered 01/21/25 Ordered By: Irineo Weiss Diet: Advance to usual diet Activity on Discharge: As tolerated Stand Alone Forms: Patient Portal Discharge page, Work/School Release Print Language: Japanese Care Plan Goals: copd execerebation with acute bronchitis -complete antibiotics and prednisone as prescribed. follow up with pulm outpatient per pcp-for pft's and workup for pulm htn. ct chest dental findings: Notable enlargement of the central and segmental pulmonary arteries is consistent with pulmonary arterial hypertension, scattered pulmonary nodules, largest measures up to 5 mm in the left upper lobe. Recommend 1-year interval CT follow-up in a high-risk patient. Patient is to follow up with PCP and consider outpatient follow-up with Pulmonary for above workup for pulmonary hypertension as well as lung nodule Health Concerns: as above. Plan of Treatment: as above. Assessment: as above.
--- NOTE | 2025-01-21 12:46 | MHC.CM.PN ---
Pt is medically cleared for discharge home self-care, she will transport herself home today (car is in lot).
== END 2025-01-21 14:48 | disposition home or self-care (01) | DRG 140 ==
LOC: HO.ED 01:34 → HO.EDOVER 01:46 → HO.IMC 08:06
PROVIDERS: Nurse Practitioner Family; Admitting Provider Internal Medicine; Emergency Provider Student in an Organized Health Care Education/Training Program; PCP Internal Medicine; Visit Provider Internal Medicine
DX: J44.1 Chronic obstructive pulmonary disease with (acute) exacerbation (principal); J96.01 Acute respiratory failure with hypoxia; F11.20 Opioid dependence, uncomplicated; J44.0 Chronic obstructive pulmonary disease with (acute) lower respiratory infection; J20.9 Acute bronchitis, unspecified; F17.210 Nicotine dependence, cigarettes, uncomplicated; Z71.6 Tobacco abuse counseling; I11.9 Hypertensive heart disease without heart failure; Z20.822 Contact with and (suspected) exposure to COVID-19; Z79.899 Other long term (current) drug therapy
CPT/HCPCS: 36415; 71046; 71250; 80048; 80053; 80307; 82803; 83605; 83735; 83880; 84145; 84484; 85025; 85379; 87040; 87633; 87637; 93005; 93306; 94640; 99285; J0456; J0696; J1650; J2919; Q9957

== ENCOUNTER → 2025-01-20 00:19 | Outpatient (BNV) | payer OTHER, SELFPAY | PROVIDERS: Admitting Provider Internal Medicine; Emergency Provider Student in an Organized Health Care Education/Training Program; Visit Provider Radiology Diagnostic Radiology | DX: J44.1 Chronic obstructive pulmonary disease with (acute) exacerbation (principal) | CPT/HCPCS: 71046 ==

== ENCOUNTER 2025-01-20 01:36 | Outpatient (BNV) | payer OTHER, SELFPAY | END 2025-01-20 12:00 | PROVIDERS: Admitting Provider Internal Medicine; Emergency Provider Student in an Organized Health Care Education/Training Program; PCP Internal Medicine; Visit Provider Internal Medicine | DX: I51.7 Cardiomegaly (principal) | CPT/HCPCS: 93306 ==

== ENCOUNTER 2025-01-20 01:36 | Outpatient (BNV) | payer OTHER, SELFPAY | END 2025-01-21 11:21 | PROVIDERS: Admitting Provider Internal Medicine; Emergency Provider Student in an Organized Health Care Education/Training Program; PCP Internal Medicine; Visit Provider Internal Medicine | DX: I51.7 Cardiomegaly (principal) | CPT/HCPCS: 93010 ==

== ENCOUNTER 2025-01-20 01:36 | Outpatient (BNV) | payer OTHER, SELFPAY | END 2025-01-21 08:08 | PROVIDERS: Admitting Provider Internal Medicine; Emergency Provider Student in an Organized Health Care Education/Training Program; PCP Internal Medicine; Visit Provider Radiology Diagnostic Radiology | DX: R91.8 Other nonspecific abnormal finding of lung field (principal); J44.1 Chronic obstructive pulmonary disease with (acute) exacerbation | CPT/HCPCS: 71046; 71250 ==

== ENCOUNTER → 2025-01-20 01:36 | Outpatient (BNV) | payer OTHER, SELFPAY | PROVIDERS: Admitting Provider Internal Medicine; Emergency Provider Student in an Organized Health Care Education/Training Program; Visit Provider Nurse Practitioner Family | DX: J44.9 Chronic obstructive pulmonary disease, unspecified (principal) | CPT/HCPCS: 99222; 99239; 99499 ==